=== PATIENT | male | born 1960 | race Caucasian/White ===

== ENCOUNTER → 2017-06-20 09:57 | Outpatient (CLI) | payer OTHER, MEDICAID, SELFPAY | PROVIDERS: PCP Family Medicine; Visit Provider Internal Medicine | DX: G90.09 Other idiopathic peripheral autonomic neuropathy (principal); L97.512 Non-pressure chronic ulcer of other part of right foot with fat layer exposed | CPT/HCPCS: 11042 ==

== ENCOUNTER → 2017-07-05 08:46 | Outpatient (CLI) | payer OTHER, MEDICAID, SELFPAY | PROVIDERS: PCP Family Medicine; Visit Provider Internal Medicine | DX: G90.09 Other idiopathic peripheral autonomic neuropathy (principal); L97.512 Non-pressure chronic ulcer of other part of right foot with fat layer exposed; M86.171 Other acute osteomyelitis, right ankle and foot | CPT/HCPCS: 11042 ==

== ENCOUNTER → 2017-07-13 08:55 | Outpatient (CLI) | payer OTHER, MEDICAID, SELFPAY | PROVIDERS: PCP Family Medicine; Visit Provider Internal Medicine | DX: L97.512 Non-pressure chronic ulcer of other part of right foot with fat layer exposed (principal); M86.171 Other acute osteomyelitis, right ankle and foot | CPT/HCPCS: 11042 ==

== ENCOUNTER → 2017-07-20 09:08 | Outpatient (CLI) | payer OTHER, SELFPAY | PROVIDERS: PCP Family Medicine; Visit Provider Internal Medicine | DX: G90.09 Other idiopathic peripheral autonomic neuropathy (principal); L97.512 Non-pressure chronic ulcer of other part of right foot with fat layer exposed; M86.171 Other acute osteomyelitis, right ankle and foot | CPT/HCPCS: 11042 ==

== ENCOUNTER → 2017-07-27 09:03 | Outpatient (CLI) | payer OTHER, SELFPAY ==
--- NOTE | 2017-07-27 | OV.WND_ITS ---
Progress Note Details Patient Name: Gustavo Worley Patient Number: [id number] PatientPatientDate: 07/27/2017 Clinician: Huong Harp Clinician Cosigner: Meenu Ng Physician / Compressed Yeast Supervisor: Reji Gustavo SUBJECTIVE Chief Complaint This information was obtained from the patient Neuropathic ulcer to right 3rd toe. Allergies [facility] This information was obtained from the patient 07/27/17. Seen by Dr. Mendoza. The patient continues on doxycycline for osteomyelitis of the right 3rd toe without reporting adverse side effects and staff feel the associated right 3rd toe neuropathic ulcer continues to improve over the past week. Of note, the patient injured his back and has been off of work for a few days which has contributed to offloading the ulcer. 07/20/17. Seen by Dr. Mendoza. The patient continues on doxycycline for osteomyelitis of the right 3rd toe without reporting adverse side effects and staff feel the associated right 3rd toe neuropathic ulcer has improved considerably over the past week. 07/13/17. Seen by Dr. Mendoza. The patient continues on doxycycline for osteomyelitis of the right 3rd toe without reporting adverse side effects. He also states he's been quite active working and feels he's not been offloading the toe as much as he should. 07/05/17. Seen Dr. Mendoza. The patient continues on doxycycline for osteomyelitis of the right 3rd toe that was seen on his MRI 2 weeks ago. He does not report significant drainage or pain at the site and he has taken the last week off of work and improved his offloading of the toe. 06/27/17. Seen by Dr. Mendoza. The patient's now on doxycycline for osteomyelitis of the right 3rd toe that was seen on his MRI last week. He does not report significant drainage or pain at the site and he continues to work a regular schedule as a longer which has made it very difficult to offload the ulcer adequately. 06/20/17. Seen by Dr. Mendoza. 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 06/12/17. Seen by Dr. Mendoza. 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 His MRI to evaluate for underlying osteomyelitis has not yet been approved any continues on oral antibiotics to treat the MSSA positive wound culture noting we were able to probe to bone at his last visit. 06/06/17. Seen by Dr. Mendoza. The patient reports recurrence of pain associated with the chronic right third toe neuropathic ulcer over the past week. 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 He notes a new ulcer beneath the left first toe that is similar to the one beneath the right first toe noted on last exam. 05/31/17. Seen by Dr. Mendoza. Staff report a persistence of the recently documented neuropathic ulcer under the base of the right first toe that originally appeared as a cracked callus. 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 05/24/17. Seen by Dr. Mendoza. The patient does not report seeing strange associated with chronic right third toe neuropathic ulcer since his last visit however he reports a new ulcer over the dorsum of the right first toe. He has returned to working as a punch press feeder and states he feels the new ulcers related to work on very steep hill sides and the fact that a makeshift toe lift dressing offloading the third toe and attached to the first toe may have been rubbing and causing the new ulcer. 05/15/17. Seen by Dr. Mendoza. The patient has been off antibiotics since last Monday and is not report significant drainage, swelling, or pain associated with the chronic right third toe neuropathic ulcer since his last visit. He is offloading as recommended using lambswool to lift the toe noting the significant plantarflexion deformity and has purchased a larger shoe to help prevent callus formation. 05/02/17. Seen by Dr. Mendoza. The patient does not report increased drainage or pain associated with the chronic right third to neuropathic ulcers since his last visit. He will complete his course of doxycycline today and does not report other side effects. He is attempting to offload the toe by using a rolled foam dressing every notes that his shoes also may be too small and preventing optimal offloading of the ulcer. He did have an x-ray that did not confirm osteomyelitis. 05/03/17. Seen by Dr. Mendoza. 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 He was not able to find a toe lift to purchase as recommended to help offload the plantar flexed distal toe but has remained off work and minimized walking as recommended. 04/26/17. Seen by Dr. Mendoza. 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 His CT evaluating for osteomyelitis was not approved by insurance due to an xray not being performed prior. In general he feels his toe is improving although swelling and erythema persist. 04/19/17. Seen by Dr. Mendoza. 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 He does not report adverse side effects, fevers, or feeling unwell in general. 04/14/17. Seen by Ryan Dacosta PA-C. This patient is new to our clinic and was sent urgently from Dr. Mcgee on [facility] for evaluation of his right 3rd toe. The ulcer began spontaneously 1 week ago and in the past few days has become red and warm. His PCP took a swab culture and placed him empirically on Keflex. The patient is insensate at the ulcer site but has not been diagnosed with diabetes, though it has been noted that his A1c and random sugars have been slightly elevated at recent PCP appointments. 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 He also has an ulcer under his right great toe which he states has been present and stable for several weeks. Past Medical History This information was obtained from the patient Patient has a medical history of: Hyperlipidemia Gout Hypertension Osteoarthritis Complaints and Symptoms This information was obtained from the patient Patient complains of: General Notes: I have reviewed and concur with the Review of Systems and Past Family Social History documents completed by the clinician, I have reviewed and concur with the Wound Assessment document completed by the clinician Integumentary (Hair/Skin/Nails): Open Sore Musculoskeletal: Deformities Neurological: Loss of Protective Sensation Prior Wound History: Drainage, Erythema, Malodor Patient denies complaints or symptoms related to: Cardiovascular (Central): Dyspnea on Exertion, Irregular heart beat Constitutional Symptoms (General Health): Chills, Fever, Loss of Appetite Gastrointestinal (GI): Nausea / Vomiting, Stomach/abdominal pain Hematologic/Lymphatic: Bleeding / Clotting Disorders, Bleeding Tendency Musculoskeletal: Assistive Devices Psychiatric: Memory Loss Respiratory: Oxygen Use OBJECTIVE Constitutional Vital signs reviewed and noted. Well developed. Alert. Clean appearing.. Height/ Length: 74 in (187.96 cm), Weight: 292.1 lbs (132.77 kgs), BMI: 37.5, Temperature: 97.4 ?F ( 36.33 ?C), Pulse: 74 bpm, Respiratory Rate: 18 breaths/min, Blood Pressure: 135/77 mmHg, Pulse Oximetry: 98 %. Ears, Nose, Mouth, and Throat: No clinically significant hearing loss on informal examination. Respiratory: No respiratory distress. Even respirations and without use of accessory muscles.. Cardiovascular: Affected extremity exhibits no peripheral edema or cyanosis, is warm, and is well perfused. Capillary refill is less than 2 seconds. Integumentary (Hair, Skin) No periwound erythema, warmth, or significant drainage. No periwound rashes appreciated or noted otherwise.. Refer to appropriate clinician wound documentation for this visit; right 3rd toe ulcer extends to subcut with base partially covered with pink granulation, remainder fibrin and slough. Moderate amount of callus in the periulcer area. Wound #2 Right Third Toe is an acute Partial Thickness Neuropathic Ulcer and has received a status of Not Healed. Subsequent wound encounter measurements are 0.2cm length x 0.2cm width x 0.1cm depth, with an area of 0.04 sq cm and a volume of 0.004 cubic cm. No tunneling has been noted. No sinus tract has been noted. No undermining has been noted. There is a moderate amount of sero-sanguineous drainage noted which has no odor. The patient reports a wound pain of level 0/10. The wound margin is unattached. Wound bed has Yes epithelialization, No eschar, No slough, Yes bright red, firm granulation. The periwound skin moisture is normal. The periwound skin exhibited: Callus. The periwound skin did not exhibit: Brawny Induration, Edema, Excoriation, Induration, Crepitus, Fluctuance, Friable, Rash, Atrophie Catharine, Cyanosis, Ecchymosis, Erythema, Hemosiderosis, Pallor, Rubor. The temperature of the periwound skin is WNL. Periwound skin does not exhibit signs or symptoms of infection. Local Pulse is Strong. Neurological: Cranial nerves grossly intact with symmetric function normal by informal observation.. ASSESSMENT Active Problems ICD-10 (Encounter Diagnosis) L97.512 - Non-pressure chronic ulcer of other part of right foot with fat layer exposed (Encounter Diagnosis) M86.171 - Other acute osteomyelitis, right ankle and foot PROCEDURES Wound #2 Wound #2 (Neuropathic Ulcer) is located on the right third toe. A skin/ subcutaneous tissue level surgical debridement with a total area debrided of 0.04 sq cm was performed by Gustavo Mendoza MD. Subcutaneous was removed along with devitalized tissue: callus and slough. The following instrument(s) were used: curette. Pain control was achieved using 4% Lido. A time out was conducted prior to the start of the procedure. A minimal amount of bleeding was controlled with pressure. The procedure was tolerated well with a pain level of 0 throughout and a pain level of 0 following the procedure. Post Debridement Measurements: 0.2cm length x 0.2cm width x 0.2cm depth; with an area of 0.04 sq cm and a volume of 0.008 cubic cm; PLAN Wound Orders: Wound #2 Right Third Toe Dressings Pack wound: - Gentamicin to wound bed. Primary dressing: - Foam Cover and secure with: - Hypafix Change Dressing: - Every other day. Off-Loading Keep weight off: - Right 3 toe Follow-Up Appointments Return Appointment: - - One week. Scribing Attestation I attest, as the nurse, that I scribed these orders for the physician. - Finish antibiotic then start next dose. You will have 6 week of antibiotic total. I've reviewed the clinician's documentation and agree with the evaluation and plan as written. In addition, the patient's ulcer demonstrates evidence of non-viable devitalized tissue which will continue to benefit from sharp debridement to help promote granulation and expedite healing. Also, the patient will complete his current course of doxycycline which will take him through 6 weeks of continuous therapy. Electronic Signature(s) Signed By: Date: Gustavo Mendoza MD 07/28/2017 08:42:30 Entered By: Gustavo Mendoza on 07/27/2017 11:42:32
== END ==
PROVIDERS: PCP Family Medicine; Visit Provider Internal Medicine
DX: G90.09 Other idiopathic peripheral autonomic neuropathy (principal); L97.512 Non-pressure chronic ulcer of other part of right foot with fat layer exposed; M86.171 Other acute osteomyelitis, right ankle and foot
CPT/HCPCS: 11042

== ENCOUNTER → 2017-08-03 10:25 | Outpatient (CLI) | payer OTHER, SELFPAY ==
--- NOTE | 2017-08-03 | OV.WND_ITS ---
Progress Note Details Patient Name: Gustavo Worley Patient Number: [id number] PatientPatientDate: 08/03/2017 Clinician: Huong Harp Clinician Cosigner: Lian Linn Physician / Ceramic Painter: Titus Dacosta SUBJECTIVE Chief Complaint This information was obtained from the patient Neuropathic ulcer to right 3rd toe. Allergies NKDA HPI This information was obtained from the patient 08/03/17. Seen by Ryan Dacosta PA-C. The patient reports stable drainage from his right 3rd toe ulcer. He continues on doxycycline to treat the osteomyelitis underlying the ulcer. The patient also reports a new ulcer on his left foot which began spontaneously, and has been continually present for the past 4 days. The new ulcer has had clear drainage and no associated erythema. 07/27/17. Seen by Dr. Mendoza. The patient continues on doxycycline for osteomyelitis of the right 3rd toe without reporting adverse side effects and staff feel the associated right 3rd toe neuropathic ulcer continues to improve over the past week. Of note, the patient injured his back and has been off of work for a few days which has contributed to offloading the ulcer. 07/20/17. Seen by Dr. Mendoza. The patient continues on doxycycline for osteomyelitis of the right 3rd toe without reporting adverse side effects and staff feel the associated right 3rd toe neuropathic ulcer has improved considerably over the past week. 07/13/17. Seen by Dr. Mendoza. The patient continues on doxycycline for osteomyelitis of the right 3rd toe without reporting adverse side effects. He also states he's been quite active working and feels he's not been offloading the toe as much as he should. 07/05/17. Seen Dr. Mendoza. The patient continues on doxycycline for osteomyelitis of the right 3rd toe that was seen on his MRI 2 weeks ago. He does not report significant drainage or pain at the site and he has taken the last week off of work and improved his offloading of the toe. 06/27/17. Seen by Dr. Mendoza. The patient's now on doxycycline for osteomyelitis of the right 3rd toe that was seen on his MRI last week. He does not report significant drainage or pain at the site and he continues to work a regular schedule as a longer which has made it very difficult to offload the ulcer adequately. 06/20/17. Seen by Dr. Mendoza. 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 06/12/17. Seen by Dr. Mendoza. 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 His MRI to evaluate for underlying osteomyelitis has not yet been approved any continues on oral antibiotics to treat the MSSA positive wound culture noting we were able to probe to bone at his last visit. 06/06/17. Seen by Dr. Mendoza. The patient reports recurrence of pain associated with the chronic right third toe neuropathic ulcer over the past week. 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 He notes a new ulcer beneath the left first toe that is similar to the one beneath the right first toe noted on last exam. 05/31/17. Seen by Dr. Mendoza. Staff report a persistence of the recently documented neuropathic ulcer under the base of the right first toe that originally appeared as a cracked callus. 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 05/24/17. Seen by Dr. Mendoza. The patient does not report seeing strange associated with chronic right third toe neuropathic ulcer since his last visit however he reports a new ulcer over the dorsum of the right first toe. He has returned to working as a business management manager and states he feels the new ulcers related to work on very steep hill sides and the fact that a makeshift toe lift dressing offloading the third toe and attached to the first toe may have been rubbing and causing the new ulcer. 05/15/17. Seen by Dr. Mendoza. The patient has been off antibiotics since last Monday and is not report significant drainage, swelling, or pain associated with the chronic right third toe neuropathic ulcer since his last visit. He is offloading as recommended using lambswool to lift the toe noting the significant plantarflexion deformity and has purchased a larger shoe to help prevent callus formation. 05/02/17. Seen by Dr. Mendoza. The patient does not report increased drainage or pain associated with the chronic right third to neuropathic ulcers since his last visit. He will complete his course of doxycycline today and does not report other side effects. He is attempting to offload the toe by using a rolled foam dressing every notes that his shoes also may be too small and preventing optimal offloading of the ulcer. He did have an x-ray that did not confirm osteomyelitis. 05/03/17. Seen by Dr. Mendoza. 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 He was not able to find a toe lift to purchase as recommended to help offload the plantar flexed distal toe but has remained off work and minimized walking as recommended. 04/26/17. Seen by Dr. Mendoza. 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 His CT evaluating for osteomyelitis was not approved by insurance due to an xray not being performed prior. In general he feels his toe is improving although swelling and erythema persist. 04/19/17. Seen by Dr. Mendoza. 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 He does not report adverse side effects, fevers, or feeling unwell in general. 04/14/17. Seen by Ryan Dacosta PA-C. This patient is new to our clinic and was sent urgently from Dr. Mcgee on [facility] for evaluation of his right 3rd toe. The ulcer began spontaneously 1 week ago and in the past few days has become red and warm. His PCP took a swab culture and placed him empirically on Keflex. The patient is insensate at the ulcer site but has not been diagnosed with diabetes, though it has been noted that his A1c and random sugars have been slightly elevated at recent PCP appointments. 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 He also has an ulcer under his right great toe which he states has been present and stable for several weeks. 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, Tobacco Use - never Past Medical History This information was obtained from the patient Patient has a medical history of: Hyperlipidemia Gout Hypertension Osteoarthritis Complaints and Symptoms This information was obtained from the patient Patient complains of: General Notes: I have reviewed and concur with the Review of Systems and Past Family Social History documents completed by the clinician, I have reviewed and concur with the Wound Assessment document completed by the clinician Integumentary (Hair/Skin/Nails): Open Sore Musculoskeletal: Deformities Neurological: Loss of Protective Sensation Prior Wound History: Drainage, Erythema, Malodor Patient denies complaints or symptoms related to: Cardiovascular (Central): Dyspnea on Exertion, Irregular heart beat Constitutional Symptoms (General Health): Chills, Fever, Loss of Appetite Gastrointestinal (GI): Nausea / Vomiting, Stomach/abdominal pain Hematologic/Lymphatic: Bleeding / Clotting Disorders, Bleeding Tendency Musculoskeletal: Assistive Devices Psychiatric: Memory Loss Respiratory: Oxygen Use OBJECTIVE Constitutional Vital signs reviewed and noted. Well developed, lucid, and in no acute distress. . Height/Length: 74 in (187.96 cm), Weight: 289.4 lbs (131.55 kgs), BMI: 37.2, Temperature: 98.5 ?F (36.94 ?C), Pulse: 75 bpm, Respiratory Rate: 18 breaths/min, Blood Pressure: 127/78 mmHg, Pulse Oximetry: 98 %. Eyes: Conjunctiva clear and without icterus. Pupils are equal and round; EOM's intact. Ears, Nose, Mouth, and Throat: Grossly intact. Respiratory: No respiratory distress. Even respirations and without use of accessory muscles.. Integumentary (Hair, Skin) Refer to appropriate clinician wound documentation for this visit; ulcer extends to subcutaneous fat layer. . Wound #2 Right Third Toe is an acute Full Thickness Neuropathic Ulcer and has received a status of Not Healed. Subsequent wound encounter measurements are 0cm length x 0cm width with no measurable depth, with an area of 0 sq cm . No tunneling has been noted. No sinus tract has been noted. No undermining has been noted. There was no drainage noted. The patient reports a wound pain of level 0/10. The wound margin is unattached. Wound bed has Yes epithelialization, No eschar, No slough, No granulation. The periwound skin moisture is normal. The periwound skin exhibited: Callus. The periwound skin did not exhibit: Brawny Induration, Edema, Excoriation, Induration, Crepitus, Fluctuance, Friable, Rash, Atrophie Meghann, Cyanosis, Ecchymosis, Erythema, Hemosiderosis, Pallor, Rubor. The temperature of the periwound skin is WNL. Periwound skin does not exhibit signs or symptoms of infection. Local Pulse is Strong. Wound #6 Left Third Toe is an acute Partial Thickness Neuropathic Ulcer and has received a status of Not Healed. Initial wound encounter measurements are 0.3cm length x 0.1cm width x 0.1cm depth, with an area of 0.03 sq cm and a volume of 0.003 cubic cm. No tunneling has been noted. No sinus tract has been noted. No undermining has been noted. There was no drainage noted. The patient reports no wound pain due to the wound being insensate. The wound margin is attached. Wound bed has No epithelialization, No eschar, Yes slough, No granulation. The periwound skin moisture is normal. The periwound skin color is normal. The periwound skin exhibited: Callus. The periwound skin did not exhibit: Brawny Induration, Edema, Excoriation, Crepitus, Fluctuance, Friable, Rash. The temperature of the periwound skin is WNL. Periwound skin does not exhibit signs or symptoms of infection. Local Pulse is Palpable. Psychiatric: Judgement and insight: Normal affect with normal thought pattern. Alert and oriented 3/3. Memory grossly intact.. Normal affect. Mood appropriate.. ASSESSMENT Active Problems ICD-10 (Encounter Diagnosis) L97.512 - Non-pressure chronic ulcer of other part of right foot with fat layer exposed (Encounter Diagnosis) M86.171 - Other acute osteomyelitis, right ankle and foot (Encounter Diagnosis) L97.521 - Non-pressure chronic ulcer of other part of left foot limited to breakdown of skin PROCEDURES Wound #2 Wound #2 (Neuropathic Ulcer) is located on the right third toe. A selective debridement with a total area debrided of 0.01 sq cm was performed by Titus Dacosta PA. to remove devitalized tissue: exudate and slough. The following instrument(s) were used: curette. No anesthetic was required due to loss of sensation. A time out was conducted prior to the start of the procedure. A minimal amount of bleeding was controlled with pressure. The procedure was tolerated well with a loss of sensation throughout and a loss of sensation following the procedure. Post Debridement Measurements: 0.1cm length x 0.1cm width x 0.2cm depth; with an area of 0.01 sq cm and a volume of 0.002 cubic cm; Wound #6 Wound #6 (Neuropathic Ulcer) is located on the left third toe. A skin/ subcutaneous tissue level surgical debridement with a total area debrided of 0.3 sq cm was performed by Titus Dacosta PA. Subcutaneous was removed along with devitalized tissue: callus, exudate, and slough. The following instrument(s) were used: curette, forceps, and scissors. No anesthetic was required due to loss of sensation. A time out was conducted prior to the start of the procedure. A minimal amount of bleeding was controlled with pressure. The procedure was tolerated well with a loss of sensation throughout and a loss of sensation following the procedure. Post Debridement Measurements: 0.5cm length x 0.6cm width x 0.1cm depth; with an area of 0.3 sq cm and a volume of 0.03 cubic cm; PLAN Wound Orders: Wound #2 Right Third Toe Dressings Pack wound: - Gentamicin to wound bed. Primary dressing: - Foam Cover and secure with: - Hypafix Change Dressing: - Every other day. Off-Loading Keep weight off: - Right 3 toe Follow-Up Appointments Return Appointment: - - One week. Scribing Attestation I attest, as the nurse, that I scribed these orders for the physician. - Finish antibiotic then start next dose. You will have 6 week of antibiotic total. Please continue to use toe lifts. Wound #6 Left Third Toe Dressings Pack wound: - Gentamicin to wound bed. Primary dressing: - Foam Cover and secure with: - Hypafix Change Dressing: - Every other day. I've reviewed the clinician's documentation and agree with the evaluation and plan as written. In addition the patient's ulcers demonstrate evidence of non-viable devitalized tissue which benefits from sharp debridement. Separate from the need for debridement today to speed healing, the patient's infection was assessed and appears to still be active. The patient was enouraged to continue complying with the ordered antimicrobial regemin for ongoing treatment for this issue. The patient's new ulcer is medically complex requiring continued and regular specialty wound care clinic visits. To that end we will continue with routine dressing changes and in clinic medical assessments including surveillance for bacterial infection as well as routine debridements of non-viable tissue when needed. Electronic Signature(s) Signed By: Date: Ryan Dacosta 08/07/2017 12:48:23 Entered By: Ryan Dacosta on 08/07/2017 08:40:27
== END ==
PROVIDERS: PCP Family Medicine; Visit Provider Physician Assistant
DX: G90.09 Other idiopathic peripheral autonomic neuropathy (principal); L97.522 Non-pressure chronic ulcer of other part of left foot with fat layer exposed; L97.512 Non-pressure chronic ulcer of other part of right foot with fat layer exposed; M86.171 Other acute osteomyelitis, right ankle and foot
CPT/HCPCS: 11042; 97597

== ENCOUNTER → 2017-08-10 09:43 | Outpatient (CLI) | payer OTHER, SELFPAY ==
--- NOTE | 2017-08-10 | OV.WND_ITS ---
Progress Note Details Patient Name: Gustavo Worley Patient Number: [id number] PatientPatientDate: 08/10/2017 Clinician: Rosie Abernathy Clinician Cosigner: Huong Harp Physician / Maintenance Painter Apprentice: Gustavo Mendoza SUBJECTIVE Chief Complaint This information was obtained from the patient Neuropathic ulcer to right 3rd toe. Allergies [facility] This information was obtained from the patient 08/10/17. Seen by Dr. Mendoza. 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 He's also completed his course of doxycycline for a total of 6 weeks of antibiotics which was prescribed for acute osteomyelitis of the distal right 3rd toe. He does not report pain in this toe as he had previously nor adverse side effects of the antibiotics. He typically keeps his feet covered when in the shower but notes last night he did not as he felt he needed to wash his feet. 08/03/17. Seen by Ryan Dacosta PA-C. The patient reports stable drainage from his right 3rd toe ulcer. He continues on doxycycline to treat the osteomyelitis underlying the ulcer. The patient also reports a new ulcer on his left foot which began spontaneously, and has been continually present for the past 4 days. The new ulcer has had clear drainage and no associated erythema. 07/27/17. Seen by Dr. Mendoza. The patient continues on doxycycline for osteomyelitis of the right 3rd toe without reporting adverse side effects and staff feel the associated right 3rd toe neuropathic ulcer continues to improve over the past week. Of note, the patient injured his back and has been off of work for a few days which has contributed to offloading the ulcer. 07/20/17. Seen by Dr. Mendoza. The patient continues on doxycycline for osteomyelitis of the right 3rd toe without reporting adverse side effects and staff feel the associated right 3rd toe neuropathic ulcer has improved considerably over the past week. 07/13/17. Seen by Dr. Mendoza. The patient continues on doxycycline for osteomyelitis of the right 3rd toe without reporting adverse side effects. He also states he's been quite active working and feels he's not been offloading the toe as much as he should. 07/05/17. Seen Dr. Mendoza. The patient continues on doxycycline for osteomyelitis of the right 3rd toe that was seen on his MRI 2 weeks ago. He does not report significant drainage or pain at the site and he has taken the last week off of work and improved his offloading of the toe. 06/27/17. Seen by Dr. Mendoza. The patient's now on doxycycline for osteomyelitis of the right 3rd toe that was seen on his MRI last week. He does not report significant drainage or pain at the site and he continues to work a regular schedule as a longer which has made it very difficult to offload the ulcer adequately. 06/20/17. Seen by Dr. Mendoza. 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 06/12/17. Seen by Dr. Mendoza. 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 His MRI to evaluate for underlying osteomyelitis has not yet been approved any continues on oral antibiotics to treat the MSSA positive wound culture noting we were able to probe to bone at his last visit. 06/06/17. Seen by Dr. Mendoza. The patient reports recurrence of pain associated with the chronic right third toe neuropathic ulcer over the past week. 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 He also continues his work as a mastercam programmer. He notes a new ulcer beneath the left first toe that is similar to the one beneath the right first toe noted on last exam. 05/31/17. Seen by Dr. Mendoza. Staff report a persistence of the recently documented neuropathic ulcer under the base of the right first toe that originally appeared as a cracked callus. 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 05/24/17. Seen by Dr. Mendoza. The patient does not report seeing strange associated with chronic right third toe neuropathic ulcer since his last visit however he reports a new ulcer over the dorsum of the right first toe. 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 05/15/17. Seen by Dr. Mendoza. The patient has been off antibiotics since last Monday and is not report significant drainage, swelling, or pain associated with the chronic right third toe neuropathic ulcer since his last visit. He is offloading as recommended using lambswool to lift the toe noting the significant plantarflexion deformity and has purchased a larger shoe to help prevent callus formation. 05/02/17. Seen by Dr. Mendoza. The patient does not report increased drainage or pain associated with the chronic right third to neuropathic ulcers since his last visit. He will complete his course of doxycycline today and does not report other side effects. He is attempting to offload the toe by using a rolled foam dressing every notes that his shoes also may be too small and preventing optimal offloading of the ulcer. He did have an x-ray that did not confirm osteomyelitis. 05/03/17. Seen by Dr. Mendoza. 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 He was not able to find a toe lift to purchase as recommended to help offload the plantar flexed distal toe but has remained off work and minimized walking as recommended. 04/26/17. Seen by Dr. Mendoza. 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 His CT evaluating for osteomyelitis was not approved by insurance due to an xray not being performed prior. In general he feels his toe is improving although swelling and erythema persist. 04/19/17. Seen by Dr. Mendoza. 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 He does not report adverse side effects, fevers, or feeling unwell in general. 04/14/17. Seen by Ryan Dacosta PA-C. This patient is new to our clinic and was sent urgently from Dr. Mcgee on [facility] for evaluation of his right 3rd toe. The ulcer began spontaneously 1 week ago and in the past few days has become red and warm. His PCP took a swab culture and placed him empirically on Keflex. The patient is insensate at the ulcer site but has not been diagnosed with diabetes, though it has been noted that his A1c and random sugars have been slightly elevated at recent PCP appointments. 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 He also has an ulcer under his right great toe which he states has been present and stable for several weeks. 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, Tobacco Use - never Past Medical History This information was obtained from the patient Patient has a medical history of: Hyperlipidemia Gout Hypertension Osteoarthritis Surgical History This information was obtained from the patient Patient has a surgical history of: COLONOSCOPY COLLJ SPEC SPX NERNIA REPAIR TYMPANOSTOMY GENERAL ANESTHESIA Complaints and Symptoms This information was obtained from the patient Patient complains of: General Notes: I have reviewed and concur with the Review of Systems and Past Family Social History documents completed by the clinician, I have reviewed and concur with the Wound Assessment document completed by the clinician Integumentary (Hair/Skin/Nails): Open Sore Musculoskeletal: Deformities Neurological: Loss of Protective Sensation Prior Wound History: Drainage, Erythema, Malodor Patient denies complaints or symptoms related to: Cardiovascular (Central): Dyspnea on Exertion, Irregular heart beat Constitutional Symptoms (General Health): Chills, Fever, Loss of Appetite Gastrointestinal (GI): Nausea / Vomiting, Stomach/abdominal pain Hematologic/Lymphatic: Bleeding / Clotting Disorders, Bleeding Tendency Musculoskeletal: Assistive Devices Psychiatric: Memory Loss Respiratory: Oxygen Use OBJECTIVE Constitutional BP elevated; Afebrile; Alert and in no distress. Well developed. Alert. Clean appearing.. Height/Length: 74 in (187.96 cm), Weight: 289.4 lbs (131.55 kgs), BMI: 37.2, Temperature: 97.7 ?F (36.5 ?C), Pulse: 150/91 bpm, Respiratory Rate: 18 breaths/min, Blood Pressure: 150/91 mmHg, Capillary Blood Glucose: 106 mg/dl, Pulse Oximetry: 98 %. Vital Signs Notes: Glucose in Clinic Ears, Nose, Mouth, and Throat: No clinically significant hearing loss on informal examination. Respiratory: No respiratory distress. Even respirations and without use of accessory muscles.. Cardiovascular: Affected extremity exhibits no peripheral edema or cyanosis, is warm, and is well perfused. Capillary refill is less than 2 seconds. Gastrointestinal (GI): Obese. Nondistended.. Musculoskeletal: Significant plantar flexion of right 3rd toe. Significant plantar flexion of left 3rd toe. Integumentary (Hair, Skin) No periwound erythema, warmth, or significant drainage. No periwound rashes appreciated or noted otherwise.. Refer to appropriate clinician wound documentation for this visit; right and left foot ulcers extend to subcut with bases partially covered with pink granulation, remainder fibrin and slough; bone not appreciated at either site. Significant amount of callus in the periulcer areas. Wound #2 Right Third Toe is an acute Partial Thickness Neuropathic Ulcer and has received a status of Not Healed. Subsequent wound encounter measurements are 0.2cm length x 0.2cm width x 0.1cm depth, with an area of 0.04 sq cm and a volume of 0.004 cubic cm. No tunneling has been noted. No sinus tract has been noted. No undermining has been noted. There was no drainage noted. The patient reports a wound pain of level 0/10. The wound margin is unattached. Wound bed has No epithelialization, No eschar, No slough, No granulation. The periwound skin moisture is normal. The periwound skin exhibited: Callus. The periwound skin did not exhibit: Brawny Induration, Edema, Excoriation, Induration, Crepitus, Fluctuance, Friable, Rash, Atrophie [place], Cyanosis, Ecchymosis, Erythema, Hemosiderosis, Pallor, Rubor. The temperature of the periwound skin is WNL. Periwound skin does not exhibit signs or symptoms of infection. Local Pulse is Strong. Wound #6 Left Third Toe is an acute Partial Thickness Neuropathic Ulcer and has received a status of Not Healed. Initial wound encounter measurements are 0.3cm length x 0.4cm width x 0.1cm depth, with an area of 0.12 sq cm and a volume of 0.012 cubic cm. No tunneling has been noted. Undermining has been noted at 6:00 and ends at 9:00 with a maximum distance of 0.3cm. There was no drainage noted. The patient reports no wound pain due to the wound being insensate. The wound margin is attached. Wound bed has No epithelialization, No eschar, No slough, No granulation. The periwound skin moisture is normal. The periwound skin color is normal. The periwound skin exhibited: Callus. The periwound skin did not exhibit: Brawny Induration, Edema, Excoriation, Crepitus, Fluctuance, Friable, Rash. The temperature of the periwound skin is WNL. Periwound skin does not exhibit signs or symptoms of infection. Local Pulse is Palpable. Neurological: Cranial nerves grossly intact with symmetric function normal by informal observation.. ASSESSMENT Active Problems ICD-10 (Encounter Diagnosis) L97.512 - Non-pressure chronic ulcer of other part of right foot with fat layer exposed (Encounter Diagnosis) M86.171 - Other acute osteomyelitis, right ankle and foot (Encounter Diagnosis) L97.522 - Non-pressure chronic ulcer of other part of left foot with fat layer exposed (Encounter Diagnosis) M20.5X2 - Other deformities of toe(s) (acquired), left foot (Encounter Diagnosis) M20.5X1 - Other deformities of toe(s) (acquired), right foot (Encounter Diagnosis) Z91.19 - Patient's noncompliance with other medical treatment and regimen PROCEDURES Wound #2 Wound #2 (Neuropathic Ulcer) is located on the right third toe. A skin/ subcutaneous tissue level surgical debridement with a total area debrided of 0.04 sq cm was performed by Gustavo Mendoza MD. Subcutaneous was removed along with devitalized tissue: callus, exudate, and slough. The following instrument(s) were used: curette. Pain control was achieved using N/A. A time out was conducted prior to the start of the procedure. A minimal amount of bleeding was controlled with pressure. The procedure was tolerated well with a loss of sensation throughout and a loss of sensation following the procedure. Post Debridement Measurements: 0.2cm length x 0.2cm width x 0.3cm depth; with an area of 0.04 sq cm and a volume of 0.012 cubic cm; General Notes: Culture Wound #6 Wound #6 (Neuropathic Ulcer) is located on the left third toe. A skin/ subcutaneous tissue level surgical debridement with a total area debrided of 1 sq cm was performed by Gustavo Mendoza MD. Subcutaneous was removed along with devitalized tissue: callus and slough. The following instrument(s) were used: curette. Pain control was achieved using N/A. A time out was conducted prior to the start of the procedure. A minimal amount of bleeding was controlled with pressure. The procedure was tolerated well with a loss of sensation throughout and a loss of sensation following the procedure. Post Debridement Measurements: 1cm length x 1cm width x 0.2cm depth; with an area of 1 sq cm and a volume of 0.2 cubic cm; General Notes: Left third toe and Right third toe Cultures. Additional Information Muscle fascia or bone removed and sent to pathology?: No Muscle fascia or bone removed and sent to pathology?: No PLAN Wound Orders: Wound #2 Right Third Toe Dressings Primary dressing: - Iodosorb to wound beds. Cover and secure with: - Foam and secure with hypafix tape. Toe crest to toes to off load. Both third toes of right and left feet. Change Dressing: - Every day Off-Loading Keep weight off: - Toe Crests. Follow-Up Appointments Return Appointment: - - One week. Wound #6 Left Third Toe Dressings Primary dressing: - Iodosorb to wound beds. Cover and secure with: - Foam and secure with hypafix tape. Toe crest to toes to off load. Both third toes of right and left feet. Change Dressing: - Every day Off-Loading Keep weight off: - Toe Crests. Follow-Up Appointments Return Appointment: - - One week. Laboratory: Bacteria identified in Wound by Culture - Cultures to both wounds. Right and Left third toes. General Notes: Culture to both wounds. I've reviewed the clinician's documentation and agree with the evaluation and plan as written. In addition the patient's ulcers demonstrate evidence of non-viable devitalized tissue and they will continue to benefit from sharp debridement to help promote granulation and expedite healing. Also, I've reinforced the need to not allow the toe ulcers to be exposed to shower water and to maintain adequate hygiene to help prevent recurrent infections. The right 3rd toe ulcer is deeper today so I've repeated a wound culture and will restart oral antibiotics pending the culture results. We've also adjusted dressings to help facilitate better offloading of the ulcers noting this is quite difficulty while he continues to work full-time. Electronic Signature(s) Signed By: Date: Gustavo Mendoza MD 08/11/2017 08:43:48 Entered By: Gustavo Mendoza on 08/10/2017 12:17:15
== END ==
PROVIDERS: PCP Family Medicine; Visit Provider Internal Medicine
DX: G90.09 Other idiopathic peripheral autonomic neuropathy (principal); L97.512 Non-pressure chronic ulcer of other part of right foot with fat layer exposed; L97.522 Non-pressure chronic ulcer of other part of left foot with fat layer exposed; M86.171 Other acute osteomyelitis, right ankle and foot; M20.5X2 Other deformities of toe(s) (acquired), left foot; M20.5X1 Other deformities of toe(s) (acquired), right foot; Z91.19 Patient's noncompliance with other medical treatment and regimen
CPT/HCPCS: 11042; 87070; 87075; 87077; 87186; 87205

== ENCOUNTER → 2017-08-17 14:03 | Outpatient (CLI) | payer OTHER, SELFPAY ==
--- NOTE | 2017-08-17 | OV.WND_ITS ---
Progress Note Details Patient Name: Gustavo Worley Patient Number: [id number] PatientPatientDate: 08/17/2017 Clinician: Meenu gN Clinician Cosigner: Huong Harp Physician / Hog Cooler: Gustavo Mendoza SUBJECTIVE Chief Complaint This information was obtained from the patient Neuropathic ulcer to right 3rd toe. Allergies NKDA HPI This information was obtained from the patient 08/17/17. Seen by Dr. Mendoza. The patient's wound culture from the last visit grew MSSA, a resistant coag negative Staph, and a Sphingomonas species. He's now on clindamycin and does not report significant drainage associated with the right and left 3rd toe non-pressure ulcers. 08/10/17. Seen by Dr. Mendoza. 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 He's also completed his course of doxycycline for a total of 6 weeks of antibiotics which was prescribed for acute osteomyelitis of the distal right 3rd toe. He does not report pain in this toe as he had previously nor adverse side effects of the antibiotics. He typically keeps his feet covered when in the shower but notes last night he did not as he felt he needed to wash his feet. 08/03/17. Seen by Ryan Dacosta PA-C. The patient reports stable drainage from his right 3rd toe ulcer. He continues on doxycycline to treat the osteomyelitis underlying the ulcer. The patient also reports a new ulcer on his left foot which began spontaneously, and has been continually present for the past 4 days. The new ulcer has had clear drainage and no associated erythema. 07/27/17. Seen by Dr. Mendoza. The patient continues on doxycycline for osteomyelitis of the right 3rd toe without reporting adverse side effects and staff feel the associated right 3rd toe neuropathic ulcer continues to improve over the past week. Of note, the patient injured his back and has been off of work for a few days which has contributed to offloading the ulcer. 07/20/17. Seen by Dr. Mendoza. The patient continues on doxycycline for osteomyelitis of the right 3rd toe without reporting adverse side effects and staff feel the associated right 3rd toe neuropathic ulcer has improved considerably over the past week. 07/13/17. Seen by Dr. Mendoza. The patient continues on doxycycline for osteomyelitis of the right 3rd toe without reporting adverse side effects. He also states he's been quite active working and feels he's not been offloading the toe as much as he should. 07/05/17. Seen Dr. Mendoza. The patient continues on doxycycline for osteomyelitis of the right 3rd toe that was seen on his MRI 2 weeks ago. He does not report significant drainage or pain at the site and he has taken the last week off of work and improved his offloading of the toe. 06/27/17. Seen by Dr. Mendoza. The patient's now on doxycycline for osteomyelitis of the right 3rd toe that was seen on his MRI last week. He does not report significant drainage or pain at the site and he continues to work a regular schedule as a longer which has made it very difficult to offload the ulcer adequately. 06/20/17. Seen by Dr. Mendoza. 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 06/12/17. Seen by Dr. Mendoza. 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 His MRI to evaluate for underlying osteomyelitis has not yet been approved any continues on oral antibiotics to treat the MSSA positive wound culture noting we were able to probe to bone at his last visit. 06/06/17. Seen by Dr. Mendoza. The patient reports recurrence of pain associated with the chronic right third toe neuropathic ulcer over the past week. 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 He also continues his work as a senior technical trainer. He notes a new ulcer beneath the left first toe that is similar to the one beneath the right first toe noted on last exam. 05/31/17. Seen by Dr. Mendoza. Staff report a persistence of the recently documented neuropathic ulcer under the base of the right first toe that originally appeared as a cracked callus. 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 05/24/17. Seen by Dr. Mendoza. The patient does not report seeing strange associated with chronic right third toe neuropathic ulcer since his last visit however he reports a new ulcer over the dorsum of the right first toe. He has returned to working as a senior technical trainer and states he feels the new ulcers related to work on very steep hill sides and the fact that a makeshift toe lift dressing offloading the third toe and attached to the first toe may have been rubbing and causing the new ulcer. 05/15/17. Seen by Dr. Mendoza. The patient has been off antibiotics since last Monday and is not report significant drainage, swelling, or pain associated with the chronic right third toe neuropathic ulcer since his last visit. He is offloading as recommended using lambswool to lift the toe noting the significant plantarflexion deformity and has purchased a larger shoe to help prevent callus formation. 05/02/17. Seen by Dr. Mendoza. The patient does not report increased drainage or pain associated with the chronic right third to neuropathic ulcers since his last visit. He will complete his course of doxycycline today and does not report other side effects. He is attempting to offload the toe by using a rolled foam dressing every notes that his shoes also may be too small and preventing optimal offloading of the ulcer. He did have an x-ray that did not confirm osteomyelitis. 05/03/17. Seen by Dr. Mendoza. 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 He was not able to find a toe lift to purchase as recommended to help offload the plantar flexed distal toe but has remained off work and minimized walking as recommended. 04/26/17. Seen by Dr. Mendoza. 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 His CT evaluating for osteomyelitis was not approved by insurance due to an xray not being performed prior. In general he feels his toe is improving although swelling and erythema persist. 04/19/17. Seen by Dr. Mendoza. 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 He does not report adverse side effects, fevers, or feeling unwell in general. 04/14/17. Seen by Ryan Dacosta PA-C. This patient is new to our clinic and was sent urgently from Dr. Mcgee on [facility] for evaluation of his right 3rd toe. The ulcer began spontaneously 1 week ago and in the past few days has become red and warm. His PCP took a swab culture and placed him empirically on Keflex. The patient is insensate at the ulcer site but has not been diagnosed with diabetes, though it has been noted that his A1c and random sugars have been slightly elevated at recent PCP appointments. 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 He also has an ulcer under his right great toe which he states has been present and stable for several weeks. Past Medical History This information was obtained from the patient Patient has a medical history of: Hyperlipidemia Gout Hypertension Osteoarthritis Complaints and Symptoms This information was obtained from the patient Patient complains of: General Notes: I have reviewed and concur with the Review of Systems and Past Family Social History documents completed by the clinician, I have reviewed and concur with the Wound Assessment document completed by the clinician Integumentary (Hair/Skin/Nails): Open Sore Musculoskeletal: Deformities Neurological: Loss of Protective Sensation Prior Wound History: Drainage, Erythema, Malodor Patient denies complaints or symptoms related to: Cardiovascular (Central): Dyspnea on Exertion, Irregular heart beat Constitutional Symptoms (General Health): Chills, Fever, Loss of Appetite Gastrointestinal (GI): Nausea / Vomiting, Stomach/abdominal pain Hematologic/Lymphatic: Bleeding / Clotting Disorders, Bleeding Tendency Musculoskeletal: Assistive Devices Psychiatric: Memory Loss Respiratory: Oxygen Use OBJECTIVE Constitutional BP elevated; Afebrile; Alert and in no distress. Well developed. Alert. Clean appearing.. Height/Length: 74 in (187.96 cm), Weight: 289.4 lbs (131.55 kgs), BMI: 37.2, Temperature: 97.9 ?F (36.61 ?C), Pulse: 72 bpm, Respiratory Rate: 18 breaths/min, Blood Pressure: 141/85 mmHg, Pulse Oximetry: 99 %. Ears, Nose, Mouth, and Throat: No clinically significant hearing loss on informal examination. Respiratory: No respiratory distress. Even respirations and without use of accessory muscles.. Integumentary (Hair, Skin) No periwound erythema, warmth, or significant drainage. No periwound rashes appreciated or noted otherwise.. Refer to appropriate clinician wound documentation for this visit; right and left foot ulcers extend to subcut with bases partially covered with pink granulation, remainder fibrin and slough. Moderate amount of callus in the periulcer areas. Wound #2 Right Third Toe is an acute Partial Thickness Neuropathic Ulcer and has received a status of Not Healed. Subsequent wound encounter measurements are 0.1cm length x 0.1cm width x 0.1cm depth, with an area of 0.01 sq cm and a volume of 0.001 cubic cm. No tunneling has been noted. No sinus tract has been noted. No undermining has been noted. There was no drainage noted. The patient reports a wound pain of level 0/10. The wound margin is unattached. Wound bed has No epithelialization, No eschar, Yes slough , No granulation. The periwound skin moisture is normal. The periwound skin exhibited: Callus. The periwound skin did not exhibit: Brawny Induration, Edema, Excoriation, Induration, Crepitus, Fluctuance, Friable, Rash, Atroph[place], Cyanosis, Ecchymosis, Erythema, Hemosiderosis, Pallor, Rubor. The temperature of the periwound skin is WNL. Periwound skin does not exhibit signs or symptoms of infection. Local Pulse is Strong. Wound #6 Left Third Toe is an acute Partial Thickness Neuropathic Ulcer and has received a status of Not Healed. Initial wound encounter measurements are 0.3cm length x 0.3cm width x 0.1cm depth, with an area of 0.09 sq cm and a volume of 0.009 cubic cm. No tunneling has been noted. No sinus tract has been noted. No undermining has been noted. There was no drainage noted. The patient reports no wound pain due to the wound being insensate. The wound margin is attached. Wound bed has No epithelialization, No eschar, No slough, Yes bright red, pink, firm granulation. The periwound skin moisture is normal. The periwound skin color is normal. The periwound skin exhibited: Callus. The periwound skin did not exhibit: Brawny Induration, Edema, Excoriation, Crepitus, Fluctuance, Friable, Rash. The temperature of the periwound skin is WNL. Periwound skin does not exhibit signs or symptoms of infection. Local Pulse is Palpable. ASSESSMENT Active Problems ICD-10 (Encounter Diagnosis) L97.512 - Non-pressure chronic ulcer of other part of right foot with fat layer exposed (Encounter Diagnosis) L97.522 - Non-pressure chronic ulcer of other part of left foot with fat layer exposed (Encounter Diagnosis) L08.89 - Other specified local infections of the skin and subcutaneous tissue PROCEDURES Wound #2 Wound #2 (Neuropathic Ulcer) is located on the right third toe. A skin/ subcutaneous tissue level surgical debridement with a total area debrided of 0.01 sq cm was performed by Gustavo Mendoza MD. Subcutaneous was removed along with devitalized tissue: callus and slough. The following instrument(s) were used: curette. Pain control was achieved using 4% Lido. A time out was conducted prior to the start of the procedure. A minimal amount of bleeding was controlled with n/a. The procedure was tolerated well with a pain level of 0 throughout and a pain level of 0 following the procedure. Post Debridement Measurements: 0.1cm length x 0.1cm width x 0.2cm depth; with an area of 0.01 sq cm and a volume of 0.002 cubic cm; Wound #6 Wound #6 (Neuropathic Ulcer) is located on the left third toe. A skin/ subcutaneous tissue level surgical debridement with a total area debrided of 0.09 sq cm was performed by Gustavo Mendoza MD. Subcutaneous was removed along with devitalized tissue: callus. The following instrument(s) were used: curette. Pain control was achieved using 4% Lido. A time out was conducted prior to the start of the procedure. A minimal amount of bleeding was controlled with n/a. The procedure was tolerated well with a pain level of 0 throughout and a pain level of 0 following the procedure. Post Debridement Measurements: 0.3cm length x 0.3cm width x 0.2cm depth; with an area of 0.09 sq cm and a volume of 0.018 cubic cm; Additional Information Muscle fascia or bone removed and sent to pathology?: No Muscle fascia or bone removed and sent to pathology?: No PLAN Wound Orders: Wound #2 Right Third Toe Anesthetic Topical Xylocaine to wound bed. Cleanser Cleanse Wound: - Normal Saline and gauze. May use distilled water at home. Topical Treatments Antibiotic/Antimicrobial Ointment/Cream. - Gentamicin Dressings Cover and secure with: - Foam and secure with hypafix tape. Toe crest to toes to off load. Both third toes of right and left feet. Change Dressing: - Every day Off-Loading Keep weight off: - Toe Crests. Follow-Up Appointments Return Appointment: - - One week. Wound #6 Left Third Toe Anesthetic Topical Xylocaine to wound bed. Cleanser Cleanse Wound: - Normal Saline and gauze. May use distilled water at home. Topical Treatments Antibiotic/Antimicrobial Ointment/Cream. - Gentamicin Dressings Cover and secure with: - Foam and secure with hypafix tape. Toe crest to toes to off load. Both third toes of right and left feet. Change Dressing: - Every day Off-Loading Keep weight off: - Toe Crests. Follow-Up Appointments Return Appointment: - - One week. General Notes: Please continue taking oral antibiotics I've reviewed the clinician's documentation and agree with the evaluation and plan as written. In addition the patient's ulcers demonstrate evidence of non-viable devitalized tissue and they will continue to benefit from sharp debridement to help promote granulation and expedite healing. Also, the patient will complete his course of clindamycin as prescribed and continue applying topical gentamicin to the ulcer bases. Electronic Signature(s) Signed By: Date: Gustavo Mendoza MD 08/17/2017 15:34:08 Entered By: Gustavo Mendoza on 08/17/2017 12:26:29
== END ==
PROVIDERS: PCP Family Medicine; Visit Provider Internal Medicine
DX: G90.09 Other idiopathic peripheral autonomic neuropathy (principal); L97.512 Non-pressure chronic ulcer of other part of right foot with fat layer exposed; L97.522 Non-pressure chronic ulcer of other part of left foot with fat layer exposed; L08.89 Other specified local infections of the skin and subcutaneous tissue
CPT/HCPCS: 11042

== ENCOUNTER → 2017-08-24 09:08 | Outpatient (CLI) | payer OTHER, SELFPAY ==
--- NOTE | 2017-08-24 | OV.WND_ITS ---
Progress Note Details Patient Name: Gustavo Worley Patient Number: [id number] PatientPatientDate: 08/24/2017 Clinician: Meenu Ng Clinician Cosigner: Huong Harp Physician / Tomato Paste Maker: Reji Gustavo SUBJECTIVE Chief Complaint This information was obtained from the patient Neuropathic ulcer to right 3rd toe. Allergies NKDA HPI This information was obtained from the patient 08/24/17. Seen by Dr. Mendoza. 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 Of note, he was pressure washing a boat yesterday and feels the ulcers may have gotten wet. He also completed an extended course of antibiotics recently that was treating acute osteomyelitis of the distal right 3rd toe and as of last week the overlying ulcer appeared to be nearly healed. 08/17/17. Seen by Dr. Mendoza. The patient's wound culture from the last visit grew MSSA, a resistant coag negative Staph, and a Sphingomonas species. He's now on clindamycin and does not report significant drainage associated with the right and left 3rd toe non-pressure ulcers. 08/10/17. Seen by Dr. Mendoza. 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 He's also completed his course of doxycycline for a total of 6 weeks of antibiotics which was prescribed for acute osteomyelitis of the distal right 3rd toe. He does not report pain in this toe as he had previously nor adverse side effects of the antibiotics. He typically keeps his feet covered when in the shower but notes last night he did not as he felt he needed to wash his feet. 08/03/17. Seen by Ryan Dacosta PA-C. The patient reports stable drainage from his right 3rd toe ulcer. He continues on doxycycline to treat the osteomyelitis underlying the ulcer. The patient also reports a new ulcer on his left foot which began spontaneously, and has been continually present for the past 4 days. The new ulcer has had clear drainage and no associated erythema. 07/27/17. Seen by Dr. Mendoza. The patient continues on doxycycline for osteomyelitis of the right 3rd toe without reporting adverse side effects and staff feel the associated right 3rd toe neuropathic ulcer continues to improve over the past week. Of note, the patient injured his back and has been off of work for a few days which has contributed to offloading the ulcer. 07/20/17. Seen by Dr. Mendoza. The patient continues on doxycycline for osteomyelitis of the right 3rd toe without reporting adverse side effects and staff feel the associated right 3rd toe neuropathic ulcer has improved considerably over the past week. 07/13/17. Seen by Dr. Mendoza. The patient continues on doxycycline for osteomyelitis of the right 3rd toe without reporting adverse side effects. He also states he's been quite active working and feels he's not been offloading the toe as much as he should. 07/05/17. Seen Dr. Mendoza. The patient continues on doxycycline for osteomyelitis of the right 3rd toe that was seen on his MRI 2 weeks ago. He does not report significant drainage or pain at the site and he has taken the last week off of work and improved his offloading of the toe. 06/27/17. Seen by Dr. Mendoza. The patient's now on doxycycline for osteomyelitis of the right 3rd toe that was seen on his MRI last week. He does not report significant drainage or pain at the site and he continues to work a regular schedule as a longer which has made it very difficult to offload the ulcer adequately. 06/20/17. Seen by Dr. Mendoza. 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 06/12/17. Seen by Dr. Mendoza. 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 His MRI to evaluate for underlying osteomyelitis has not yet been approved any continues on oral antibiotics to treat the MSSA positive wound culture noting we were able to probe to bone at his last visit. 06/06/17. Seen by Dr. Mendoza. The patient reports recurrence of pain associated with the chronic right third toe neuropathic ulcer over the past week. 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 He also continues his work as a mechanical maintenance. He notes a new ulcer beneath the left first toe that is similar to the one beneath the right first toe noted on last exam. 05/31/17. Seen by Dr. Mendoza. Staff report a persistence of the recently documented neuropathic ulcer under the base of the right first toe that originally appeared as a cracked callus. 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 05/24/17. Seen by Dr. Mendoza. The patient does not report seeing strange associated with chronic right third toe neuropathic ulcer since his last visit however he reports a new ulcer over the dorsum of the right first toe. 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 05/15/17. Seen by Dr. Mendoza. The patient has been off antibiotics since last Monday and is not report significant drainage, swelling, or pain associated with the chronic right third toe neuropathic ulcer since his last visit. He is offloading as recommended using lambswool to lift the toe noting the significant plantarflexion deformity and has purchased a larger shoe to help prevent callus formation. 05/02/17. Seen by Dr. Mendoza. The patient does not report increased drainage or pain associated with the chronic right third to neuropathic ulcers since his last visit. He will complete his course of doxycycline today and does not report other side effects. He is attempting to offload the toe by using a rolled foam dressing every notes that his shoes also may be too small and preventing optimal offloading of the ulcer. He did have an x-ray that did not confirm osteomyelitis. 05/03/17. Seen by Dr. Mendoza. 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 He was not able to find a toe lift to purchase as recommended to help offload the plantar flexed distal toe but has remained off work and minimized walking as recommended. 04/26/17. Seen by Dr. Mendoza. 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 His CT evaluating for osteomyelitis was not approved by insurance due to an xray not being performed prior. In general he feels his toe is improving although swelling and erythema persist. 04/19/17. Seen by Dr. Mendoza. 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 He does not report adverse side effects, fevers, or feeling unwell in general. 04/14/17. Seen by Ryan Dacosta PA-C. This patient is new to our clinic and was sent urgently from Dr. Mcgee on [facility] for evaluation of his right 3rd toe. The ulcer began spontaneously 1 week ago and in the past few days has become red and warm. His PCP took a swab culture and placed him empirically on Keflex. The patient is insensate at the ulcer site but has not been diagnosed with diabetes, though it has been noted that his A1c and random sugars have been slightly elevated at recent PCP appointments. 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 He also has an ulcer under his right great toe which he states has been present and stable for several weeks. Past Medical History This information was obtained from the patient Patient has a medical history of: Hyperlipidemia Gout Hypertension Osteoarthritis Complaints and Symptoms This information was obtained from the patient Patient complains of: General Notes: I have reviewed and concur with the Review of Systems and Past Family Social History documents completed by the clinician, I have reviewed and concur with the Wound Assessment document completed by the clinician Integumentary (Hair/Skin/Nails): Open Sore Musculoskeletal: Deformities Neurological: Loss of Protective Sensation Prior Wound History: Drainage, Erythema, Malodor Patient denies complaints or symptoms related to: Cardiovascular (Central): Dyspnea on Exertion, Irregular heart beat Constitutional Symptoms (General Health): Chills, Fever, Loss of Appetite Gastrointestinal (GI): Nausea / Vomiting, Stomach/abdominal pain Hematologic/Lymphatic: Bleeding / Clotting Disorders, Bleeding Tendency Musculoskeletal: Assistive Devices Psychiatric: Memory Loss Respiratory: Oxygen Use OBJECTIVE Constitutional BP elevated; Afebrile; Alert and in no distress. Well developed. Alert. Clean appearing.. Height/Length: 74 in (187.96 cm), Weight: 289.4 lbs (131.55 kgs), BMI: 37.2, Temperature: 97.6 ?F (36.44 ?C), Pulse: 73 bpm, Respiratory Rate: 18 breaths/min, Blood Pressure: 145/87 mmHg, Pulse Oximetry: 97 %. Ears, Nose, Mouth, and Throat: No clinically significant hearing loss on informal examination. Respiratory: No respiratory distress. Even respirations and without use of accessory muscles.. Cardiovascular: Pedal pulses 2+ on affected limb. Affected extremity exhibits no peripheral edema or cyanosis, is warm, and is well perfused. Capillary refill is less than 2 seconds. Gastrointestinal (GI): Obese. Nondistended.. Musculoskeletal: Significant plantar flexion of right 3rd toe. Significant plantar flexion of left 3rd toe. Integumentary (Hair, Skin) No periwound erythema, warmth, or significant drainage. No periwound rashes appreciated or noted otherwise.. Refer to appropriate clinician wound documentation for this visit; right 3rd toe ulcer extends to bone with base mostly covered with red friable granulation , remainder fibrin and slough; left distal 3rd toe ulcer extends to subcut with base covered with pink granulation. Significant amount of callus in the periulcer areas. Wound #2 Right Third Toe is an acute Partial Thickness Neuropathic Ulcer and has received a status of Not Healed. Subsequent wound encounter measurements are 0.2cm length x 0.2cm width x 0.1cm depth, with an area of 0.04 sq cm and a volume of 0.004 cubic cm. No tunneling has been noted. No sinus tract has been noted. No undermining has been noted. There was no drainage noted. The patient reports a wound pain of level 0/10. The wound margin is unattached. Wound bed has No epithelialization, No eschar, Yes slough , No granulation. The periwound skin moisture is normal. The periwound skin exhibited: Callus. The periwound skin did not exhibit: Brawny Induration, Edema, Excoriation, Induration, Crepitus, Fluctuance, Friable, Rash, Atrophie Meghann, Cyanosis, Ecchymosis, Erythema, Hemosiderosis, Pallor, Rubor. The temperature of the periwound skin is WNL. Periwound skin does not exhibit signs or symptoms of infection. Local Pulse is Strong. Wound #6 Left Third Toe is an acute Partial Thickness Neuropathic Ulcer and has received a status of Not Healed. Subsequent wound encounter measurements are 0.4cm length x 0.5cm width x 0.1cm depth, with an area of 0.2 sq cm and a volume of 0.02 cubic cm. No tunneling has been noted. No sinus tract has been noted. No undermining has been noted. There was no drainage noted. The patient reports no wound pain due to the wound being insensate. The wound margin is attached. Wound bed has No epithelialization, No eschar, No slough, Yes bright red, pink, firm granulation. The periwound skin moisture is normal. The periwound skin color is normal. The periwound skin exhibited: Callus. The periwound skin did not exhibit: Brawny Induration, Edema, Excoriation, Crepitus, Fluctuance, Friable, Rash. The temperature of the periwound skin is WNL. Periwound skin does not exhibit signs or symptoms of infection. Local Pulse is Palpable. Neurological: Cranial nerves grossly intact with symmetric function normal by informal observation.. ASSESSMENT Active Problems ICD-10 (Encounter Diagnosis) L97.512 - Non-pressure chronic ulcer of other part of right foot with fat layer exposed (Encounter Diagnosis) L97.522 - Non-pressure chronic ulcer of other part of left foot with fat layer exposed (Encounter Diagnosis) M20.61 - Acquired deformities of toe(s), unspecified, right foot (Encounter Diagnosis) M86.671 - Other chronic osteomyelitis, right ankle and foot PROCEDURES Wound #2 Wound #2 (Neuropathic Ulcer) is located on the right third toe. A skin/ subcutaneous tissue level surgical debridement with a total area debrided of 0.04 sq cm was performed by Gustavo Mendoza MD. Subcutaneous was removed along with devitalized tissue: callus and slough. The following instrument(s) were used: curette. Pain control was achieved using 4% Lido. A time out was conducted prior to the start of the procedure. A minimal amount of bleeding was controlled with n/a. The procedure was tolerated well with a pain level of 0 throughout and a pain level of 0 following the procedure. Post Debridement Measurements: 0.2cm length x 0.2cm width x 0.2cm depth; with an area of 0.04 sq cm and a volume of 0.008 cubic cm; Wound #6 Wound #6 (Neuropathic Ulcer) is located on the left third toe. A selective debridement with a total area debrided of 0.2 sq cm was performed by Gustavo Mendoza MD. to remove devitalized tissue: callus. The following instrument(s) were used: curette. Pain control was achieved using 4% Lido. A time out was conducted prior to the start of the procedure. A minimal amount of bleeding was controlled with n/a. The procedure was tolerated well with a pain level of 0 throughout and a pain level of 0 following the procedure. Post Debridement Measurements: 0.4cm length x 0.5cm width x 0.2cm depth; with an area of 0.2 sq cm and a volume of 0.04 cubic cm; Additional Information Muscle fascia or bone removed and sent to pathology?: No PLAN Wound Orders: Wound #2 Right Third Toe Anesthetic Topical Xylocaine to wound bed. Cleanser Cleanse Wound: - Normal Saline and gauze. May use distilled water at home. Topical Treatments Antibiotic/Antimicrobial Ointment/Cream. - Gentamicin Dressings Cover and secure with: - Foam and secure with hypafix tape. Toe crest to toes to off load. Both third toes of right and left feet. Change Dressing: - Every day Off-Loading Keep weight off: - Toe Crests. Wound #6 Left Third Toe Anesthetic Topical Xylocaine to wound bed. Cleanser Cleanse Wound: - Normal Saline and gauze. May use distilled water at home. Topical Treatments Antibiotic/Antimicrobial Ointment/Cream. - Gentamicin Dressings Cover and secure with: - Foam and secure with hypafix tape. Toe crest to toes to off load. Both third toes of right and left feet. Change Dressing: - Every day Off-Loading Keep weight off: - Toe Crests. Follow-Up Appointments Return Appointment: - - One week. Other information: If you develop fever, chills, increased pain, drainage, redness or swelling please call our office. If after hours, respond to the ER. Should you experience any significant changes in your wound(s) or have any questions regarding your home care instructions please contact the wound center @ [phone]. If after hours, contact your primary care physician or go to the hospital emergency room. Laboratory: Bacteria identified in Wound by Culture General Notes: We will call with any positive wound cultures requiring antibiotics. We will send a referral to Dr. Pastrana for podiatry. I've reviewed the clinician's documentation and agree with the evaluation and plan as written. In addition, the patient's ulcer demonstrates evidence of non-viable devitalized tissue which will continue to benefit from sharp debridement to help promote granulation and expedite healing. Also, I've repeated a deep wound culture of the right 3rd toe ulcer. I'll refer the patient to [facility] as well due to the refractory nature of the ulcer, my concern for chronic osteomyelitis of the distal phalanx, and for consideration of bone debridement. Electronic Signature(s) Signed By: Date: Gustavo Mendoza MD 08/24/2017 15:39:04 Entered By: Gustavo Mendoza on 08/24/2017 11:53:58
== END ==
PROVIDERS: PCP Family Medicine; Visit Provider Internal Medicine
DX: L97.522 Non-pressure chronic ulcer of other part of left foot with fat layer exposed (principal); L97.516 Non-pressure chronic ulcer of other part of right foot with bone involvement without evidence of necrosis; M20.61 Acquired deformities of toe(s), unspecified, right foot; M86.671 Other chronic osteomyelitis, right ankle and foot
CPT/HCPCS: 11042; 87070; 87075; 87205; 97597

== ENCOUNTER → 2017-08-31 14:14 | Outpatient (CLI) | payer OTHER, SELFPAY ==
--- NOTE | 2017-08-31 | OV.WND_ITS ---
Progress Note Details Patient Name: Gustavo Worley Patient Number: [id number] PatientPatientDate: 08/31/2017 Clinician: Huong Harp Clinician Cosigner: Meenu Ng Physician / Supervisor Rework: Reji Gustavo SUBJECTIVE Chief Complaint This information was obtained from the patient Neuropathic ulcer to right 3rd toe. Allergies NKDA HPI This information was obtained from the patient 08/31/17. Seen by Dr. Mendoza. 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 He's also been contacted by podiatry to schedule an appointment to review possible chronic osteomyelitis of the right 3rd toe distal phalanx but he's not yet called them back to schedule a date. 08/24/17. Seen by Dr. Mendoza. 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 Of note, he was pressure washing a boat yesterday and feels the ulcers may have gotten wet. He also completed an extended course of antibiotics recently that was treating acute osteomyelitis of the distal right 3rd toe and as of last week the overlying ulcer appeared to be nearly healed. 08/17/17. Seen by Dr. Mendoza. The patient's wound culture from the last visit grew MSSA, a resistant coag negative Staph, and a Sphingomonas species. He's now on clindamycin and does not report significant drainage associated with the right and left 3rd toe non-pressure ulcers. 08/10/17. Seen by Dr. Mendoza. 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 He's also completed his course of doxycycline for a total of 6 weeks of antibiotics which was prescribed for acute osteomyelitis of the distal right 3rd toe. He does not report pain in this toe as he had previously nor adverse side effects of the antibiotics. He typically keeps his feet covered when in the shower but notes last night he did not as he felt he needed to wash his feet. 08/03/17. Seen by Ryan Dacosta PA-C. The patient reports stable drainage from his right 3rd toe ulcer. He continues on doxycycline to treat the osteomyelitis underlying the ulcer. The patient also reports a new ulcer on his left foot which began spontaneously, and has been continually present for the past 4 days. The new ulcer has had clear drainage and no associated erythema. 07/27/17. Seen by Dr. Mendoza. The patient continues on doxycycline for osteomyelitis of the right 3rd toe without reporting adverse side effects and staff feel the associated right 3rd toe neuropathic ulcer continues to improve over the past week. Of note, the patient injured his back and has been off of work for a few days which has contributed to offloading the ulcer. 07/20/17. Seen by Dr. Mendoza. The patient continues on doxycycline for osteomyelitis of the right 3rd toe without reporting adverse side effects and staff feel the associated right 3rd toe neuropathic ulcer has improved considerably over the past week. 07/13/17. Seen by Dr. Mendoza. The patient continues on doxycycline for osteomyelitis of the right 3rd toe without reporting adverse side effects. He also states he's been quite active working and feels he's not been offloading the toe as much as he should. 07/05/17. Seen Dr. Mendoza. The patient continues on doxycycline for osteomyelitis of the right 3rd toe that was seen on his MRI 2 weeks ago. He does not report significant drainage or pain at the site and he has taken the last week off of work and improved his offloading of the toe. 06/27/17. Seen by Dr. Mendoza. The patient's now on doxycycline for osteomyelitis of the right 3rd toe that was seen on his MRI last week. He does not report significant drainage or pain at the site and he continues to work a regular schedule as a longer which has made it very difficult to offload the ulcer adequately. 06/20/17. Seen by Dr. Mendoza. 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 06/12/17. Seen by Dr. Mendoza. 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 His MRI to evaluate for underlying osteomyelitis has not yet been approved any continues on oral antibiotics to treat the MSSA positive wound culture noting we were able to probe to bone at his last visit. 06/06/17. Seen by Dr. Mendoza. The patient reports recurrence of pain associated with the chronic right third toe neuropathic ulcer over the past week. 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 He notes a new ulcer beneath the left first toe that is similar to the one beneath the right first toe noted on last exam. 05/31/17. Seen by Dr. Mendoza. Staff report a persistence of the recently documented neuropathic ulcer under the base of the right first toe that originally appeared as a cracked callus. 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 05/24/17. Seen by Dr. Mendoza. The patient does not report seeing strange associated with chronic right third toe neuropathic ulcer since his last visit however he reports a new ulcer over the dorsum of the right first toe. 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 05/15/17. Seen by Dr. Mendoza. The patient has been off antibiotics since last Monday and is not report significant drainage, swelling, or pain associated with the chronic right third toe neuropathic ulcer since his last visit. He is offloading as recommended using lambswool to lift the toe noting the significant plantarflexion deformity and has purchased a larger shoe to help prevent callus formation. 05/02/17. Seen by Dr. Mendoza. The patient does not report increased drainage or pain associated with the chronic right third to neuropathic ulcers since his last visit. He will complete his course of doxycycline today and does not report other side effects. He is attempting to offload the toe by using a rolled foam dressing every notes that his shoes also may be too small and preventing optimal offloading of the ulcer. He did have an x-ray that did not confirm osteomyelitis. 05/03/17. Seen by Dr. Mendoza. 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 He was not able to find a toe lift to purchase as recommended to help offload the plantar flexed distal toe but has remained off work and minimized walking as recommended. 04/26/17. Seen by Dr. Mendoza. 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 His CT evaluating for osteomyelitis was not approved by insurance due to an xray not being performed prior. In general he feels his toe is improving although swelling and erythema persist. 04/19/17. Seen by Dr. Mendoza. 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 He does not report adverse side effects, fevers, or feeling unwell in general. 04/14/17. Seen by Ryan Dacosta PA-C. This patient is new to our clinic and was sent urgently from Dr. Mcgee on [facility] for evaluation of his right 3rd toe. The ulcer began spontaneously 1 week ago and in the past few days has become red and warm. His PCP took a swab culture and placed him empirically on Keflex. The patient is insensate at the ulcer site but has not been diagnosed with diabetes, though it has been noted that his A1c and random sugars have been slightly elevated at recent PCP appointments. 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 He also has an ulcer under his right great toe which he states has been present and stable for several weeks. Past Medical History This information was obtained from the patient Patient has a medical history of: Hyperlipidemia Gout Hypertension Osteoarthritis Complaints and Symptoms This information was obtained from the patient Patient complains of: General Notes: I have reviewed and concur with the Review of Systems and Past Family Social History documents completed by the clinician, I have reviewed and concur with the Wound Assessment document completed by the clinician Integumentary (Hair/Skin/Nails): Open Sore Musculoskeletal: Deformities Neurological: Loss of Protective Sensation Prior Wound History: Drainage, Erythema, Malodor Patient denies complaints or symptoms related to: Cardiovascular (Central): Dyspnea on Exertion, Irregular heart beat Constitutional Symptoms (General Health): Chills, Fever, Loss of Appetite Gastrointestinal (GI): Nausea / Vomiting, Stomach/abdominal pain Hematologic/Lymphatic: Bleeding / Clotting Disorders, Bleeding Tendency Musculoskeletal: Assistive Devices Psychiatric: Memory Loss Respiratory: Oxygen Use OBJECTIVE Constitutional BP elevated; Afebrile; Alert and in no distress. Well developed. Alert. Clean appearing.. Height/Length: 74 in (187.96 cm), Weight: 288.1 lbs (130.95 kgs), BMI: 37, Temperature: 97.1 ?F (36.17 ?C), Pulse: 69 bpm, Respiratory Rate: 18 breaths/min, Blood Pressure: 151/87 mmHg, Pulse Oximetry: 96 %. Ears, Nose, Mouth, and Throat: No clinically significant hearing loss on informal examination. Respiratory: No respiratory distress. Even respirations and without use of accessory muscles.. Cardiovascular: Affected extremity exhibits no peripheral edema or cyanosis, is warm, and is well perfused. Capillary refill is less than 2 seconds. Gastrointestinal (GI): Obese. Nondistended.. Musculoskeletal: Significant plantar flexion of right 3rd toe. Significant plantar flexion of left 3rd toe. Integumentary (Hair, Skin) No periwound erythema, warmth, or significant drainage. No periwound rashes appreciated or noted otherwise.. Refer to appropriate clinician wound documentation for this visit; left 3rd toe ulcer extends to subcut with base partially covered with pink granulation, remainder fibrin and slough; right 3rd toe ulcer extends to dermis. Moderate amount of callus in the periulcer areas. Wound #2 Right Third Toe is an acute Partial Thickness Neuropathic Ulcer and has received a status of Not Healed. Subsequent wound encounter measurements are 0.2cm length x 0.2cm width x 0.1cm depth, with an area of 0.04 sq cm and a volume of 0.004 cubic cm. No tunneling has been noted. No sinus tract has been noted. No undermining has been noted. There was no drainage noted. The patient reports a wound pain of level 0/10. The wound margin is unattached. Wound bed has No epithelialization, No eschar, Yes slough , No granulation. The periwound skin moisture is normal. The periwound skin exhibited: Callus. The periwound skin did not exhibit: Brawny Induration, Edema, Excoriation, Induration, Crepitus, Fluctuance, Friable, Rash, Atrophie [place], Cyanosis, Ecchymosis, Erythema, Hemosiderosis, Pallor, Rubor. The temperature of the periwound skin is WNL. Periwound skin does not exhibit signs or symptoms of infection. Local Pulse is Strong. Wound #6 Left Third Toe is an acute Partial Thickness Neuropathic Ulcer and has received a status of Not Healed. Subsequent wound encounter measurements are 0.3cm length x 0.3cm width x 0.1cm depth, with an area of 0.09 sq cm and a volume of 0.009 cubic cm. No tunneling has been noted. No sinus tract has been noted. No undermining has been noted. There is a small amount of sero-sanguineous drainage noted which has no odor. The patient reports no wound pain due to the wound being insensate. The wound margin is attached. Wound bed has No epithelialization, No eschar, Yes slough, Yes pink, firm granulation. The periwound skin moisture is normal. The periwound skin color is normal. The periwound skin exhibited: Callus. The periwound skin did not exhibit: Brawny Induration, Edema, Excoriation, Crepitus, Fluctuance, Friable, Rash. The temperature of the periwound skin is WNL. Periwound skin does not exhibit signs or symptoms of infection. Local Pulse is Palpable. Neurological: Cranial nerves grossly intact with symmetric function normal by informal observation.. ASSESSMENT Active Problems ICD-10 (Encounter Diagnosis) L97.512 - Non-pressure chronic ulcer of other part of right foot with fat layer exposed (Encounter Diagnosis) L97.522 - Non-pressure chronic ulcer of other part of left foot with fat layer exposed (Encounter Diagnosis) M20.61 - Acquired deformities of toe(s), unspecified, right foot PROCEDURES Wound #2 Wound #2 (Neuropathic Ulcer) is located on the right third toe. A non-selective mechanical debridement with a total area debrided of 0.01 sq cm was performed by Gustavo Mendoza MD. Non-viable tissue was removed.The procedure was tolerated well with a pain level of 0 throughout and a pain level of 0 following the procedure. Post Debridement Measurements: 0.1cm length x 0.1cm width x 0.1cm depth; with an area of 0.01 sq cm and a volume of 0.001 cubic cm; General Notes: Callus and drainage removed Wound #6 Wound #6 (Neuropathic Ulcer) is located on the left third toe. A skin/ subcutaneous tissue level surgical debridement with a total area debrided of 0.09 sq cm was performed by Gustavo Mendoza MD. Non-viable tissue, including subcutaneous along with devitalized tissue : callus and slough. The following instrument(s) were used: curette. Pain control was achieved using 4% [place]. A time out was conducted prior to the start of the procedure. A minimal amount of bleeding was controlled with other. The procedure was tolerated well with a pain level of 0 throughout and a pain level of 0 following the procedure. Post Debridement Measurements: 0.3cm length x 0.3cm width x 0.2cm depth; with an area of 0.09 sq cm and a volume of 0.018 cubic cm; PLAN Wound Orders: Wound #2 Right Third Toe Anesthetic Topical Xylocaine to wound bed. Cleanser Cleanse Wound: - Normal Saline and gauze. May use distilled water at home. Topical Treatments Antibiotic/Antimicrobial Ointment/Cream. - Gentamicin Dressings Cover and secure with: - Foam and secure with hypafix tape. Toe crest to toes to off load. Both third toes of right and left feet. Change Dressing: - Every day Off-Loading Keep weight off: - Toe Crests. Wound #6 Left Third Toe Anesthetic Topical Xylocaine to wound bed. Cleanser Cleanse Wound: - Normal Saline and gauze. May use distilled water at home. Topical Treatments Antibiotic/Antimicrobial Ointment/Cream. - Gentamicin Dressings Cover and secure with: - Foam and secure with hypafix tape. Toe crest to toes to off load. Both third toes of right and left feet. Change Dressing: - Every day Off-Loading Keep weight off: - Toe Crests. Follow-Up Appointments Return Appointment: - - One week. Other information: If you develop fever, chills, increased pain, drainage, redness or swelling please call our office. If after hours, respond to the ER. Should you experience any significant changes in your wound(s) or have any questions regarding your home care instructions please contact the wound center @ [phone]. If after hours, contact your primary care physician or go to the hospital emergency room. I've reviewed the clinician's documentation and agree with the evaluation and plan as written. In addition, the patient's ulcer demonstrates evidence of non-viable devitalized tissue which will continue to benefit from sharp debridement to help promote granulation and expedite healing. Both ulcers have improved since last week with improved offloading while using his new toe lifts. I've still advised him to schedule an appointment with podiatry however noting the right 3rd toe ulcer's been a recurrent problem and related to the acquired deformity and recurrent callus formation. Electronic Signature(s) Signed By: Date: Gustavo Mendoza MD 09/01/2017 06:52:26 Entered By: Gustavo Mendoza on 09/01/2017 06:50:36
== END ==
PROVIDERS: PCP Family Medicine; Visit Provider Internal Medicine
DX: G90.8 Other disorders of autonomic nervous system (principal); L97.511 Non-pressure chronic ulcer of other part of right foot limited to breakdown of skin; L97.522 Non-pressure chronic ulcer of other part of left foot with fat layer exposed; M20.61 Acquired deformities of toe(s), unspecified, right foot
CPT/HCPCS: 11042

== ENCOUNTER → 2017-09-07 14:07 | Outpatient (CLI) | payer OTHER, SELFPAY | PROVIDERS: PCP Family Medicine; Visit Provider Internal Medicine | DX: G90.9 Disorder of the autonomic nervous system, unspecified (principal); L97.512 Non-pressure chronic ulcer of other part of right foot with fat layer exposed; L97.522 Non-pressure chronic ulcer of other part of left foot with fat layer exposed; M20.61 Acquired deformities of toe(s), unspecified, right foot; M86.171 Other acute osteomyelitis, right ankle and foot | CPT/HCPCS: 11042; 87070; 87075; 87077; 87186; 87205 ==

== ENCOUNTER → 2017-09-13 09:15 | Outpatient (CLI) | payer OTHER, SELFPAY | PROVIDERS: PCP Family Medicine; Visit Provider Internal Medicine | DX: L97.512 Non-pressure chronic ulcer of other part of right foot with fat layer exposed (principal); L97.522 Non-pressure chronic ulcer of other part of left foot with fat layer exposed; L92.9 Granulomatous disorder of the skin and subcutaneous tissue, unspecified; M20.61 Acquired deformities of toe(s), unspecified, right foot; M86.671 Other chronic osteomyelitis, right ankle and foot | CPT/HCPCS: 17250 ==

== ENCOUNTER → 2017-09-21 09:16 | Outpatient (CLI) | payer OTHER, SELFPAY ==
--- NOTE | 2017-09-21 | OV.WND_ITS ---
Progress Note Details Patient Name: Gustavo Worley Patient Number: [id number] PatientPatientDate: 09/21/2017 Clinician: Rosie Abernathy Clinician Cosigner: Huong Harp Physician / Paralegal Instructor: Gustavo Mendoza SUBJECTIVE Chief Complaint This information was obtained from the patient Neuropathic ulcers to right and left 3rd toes. Allergies [facility] This information was obtained from the patient 09/21/17. Seen by Dr. Mendoza. 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 He's scheduled for amputation of the right 3rd toe due to refractory osteomyelitis with Dr. Pastrana next week. 09/13/17. Seen by Dr. Mendoza. 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 He was seen by Dr. Pastrana who's recommending amputation of the right 3rd toe due to recurrent and refractory osteomyelitis which is complicated by a non-healing distal ulcer. 09/08/17. Seen by Dr. Mendoza. 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 He has an appointment with podiatry this afternoon to review the right 3rd toe ulcer which has been a recurrent problem while the toe's been treated for acute osteomyelitis. My concern is that the osteomyelitis may not have resolved and he may require bone debridement to allow the ulcer to eventually completely heal. 08/31/17. Seen by Dr. Mendoza. 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 He's also been contacted by podiatry to schedule an appointment to review possible chronic osteomyelitis of the right 3rd toe distal phalanx but he's not yet called them back to schedule a date. 08/24/17. Seen by Dr. Mendoza. 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 Of note, he was pressure washing a boat yesterday and feels the ulcers may have gotten wet. He also completed an extended course of antibiotics recently that was treating acute osteomyelitis of the distal right 3rd toe and as of last week the overlying ulcer appeared to be nearly healed. 08/17/17. Seen by Dr. Mendoza. The patient's wound culture from the last visit grew MSSA, a resistant coag negative Staph, and a Sphingomonas species. He's now on clindamycin and does not report significant drainage associated with the right and left 3rd toe non-pressure ulcers. 08/10/17. Seen by Dr. Mendoza. 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 He's also completed his course of doxycycline for a total of 6 weeks of antibiotics which was prescribed for acute osteomyelitis of the distal right 3rd toe. He does not report pain in this toe as he had previously nor adverse side effects of the antibiotics. He typically keeps his feet covered when in the shower but notes last night he did not as he felt he needed to wash his feet. 08/03/17. Seen by Ryan Dacosta PA-C. The patient reports stable drainage from his right 3rd toe ulcer. He continues on doxycycline to treat the osteomyelitis underlying the ulcer. The patient also reports a new ulcer on his left foot which began spontaneously, and has been continually present for the past 4 days. The new ulcer has had clear drainage and no associated erythema. 07/27/17. Seen by Dr. Mendoza. The patient continues on doxycycline for osteomyelitis of the right 3rd toe without reporting adverse side effects and staff feel the associated right 3rd toe neuropathic ulcer continues to improve over the past week. Of note, the patient injured his back and has been off of work for a few days which has contributed to offloading the ulcer. 07/20/17. Seen by Dr. Mendoza. The patient continues on doxycycline for osteomyelitis of the right 3rd toe without reporting adverse side effects and staff feel the associated right 3rd toe neuropathic ulcer has improved considerably over the past week. 07/13/17. Seen by Dr. Mendoza. The patient continues on doxycycline for osteomyelitis of the right 3rd toe without reporting adverse side effects. He also states he's been quite active working and feels he's not been offloading the toe as much as he should. 07/05/17. Seen Dr. Mendoza. The patient continues on doxycycline for osteomyelitis of the right 3rd toe that was seen on his MRI 2 weeks ago. He does not report significant drainage or pain at the site and he has taken the last week off of work and improved his offloading of the toe. 06/27/17. Seen by Dr. Mendoza. The patient's now on doxycycline for osteomyelitis of the right 3rd toe that was seen on his MRI last week. He does not report significant drainage or pain at the site and he continues to work a regular schedule as a longer which has made it very difficult to offload the ulcer adequately. 06/20/17. Seen by Dr. Mendoza. 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 06/12/17. Seen by Dr. Mendoza. 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 His MRI to evaluate for underlying osteomyelitis has not yet been approved any continues on oral antibiotics to treat the MSSA positive wound culture noting we were able to probe to bone at his last visit. 06/06/17. Seen by Dr. Mendoza. The patient reports recurrence of pain associated with the chronic right third toe neuropathic ulcer over the past week. 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 He also continues his work as a firearms specialist. He notes a new ulcer beneath the left first toe that is similar to the one beneath the right first toe noted on last exam. 05/31/17. Seen by Dr. Mendoza. Staff report a persistence of the recently documented neuropathic ulcer under the base of the right first toe that originally appeared as a cracked callus. 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 05/24/17. Seen by Dr. Mendoza. The patient does not report seeing strange associated with chronic right third toe neuropathic ulcer since his last visit however he reports a new ulcer over the dorsum of the right first toe. He has returned to working as a firearms specialist and states he feels the new ulcers related to work on very steep hill sides and the fact that a makeshift toe lift dressing offloading the third toe and attached to the first toe may have been rubbing and causing the new ulcer. 05/15/17. Seen by Dr. Mendoza. The patient has been off antibiotics since last Monday and is not report significant drainage, swelling, or pain associated with the chronic right third toe neuropathic ulcer since his last visit. He is offloading as recommended using lambswool to lift the toe noting the significant plantarflexion deformity and has purchased a larger shoe to help prevent callus formation. 05/02/17. Seen by Dr. Mendoza. The patient does not report increased drainage or pain associated with the chronic right third to neuropathic ulcers since his last visit. He will complete his course of doxycycline today and does not report other side effects. He is attempting to offload the toe by using a rolled foam dressing every notes that his shoes also may be too small and preventing optimal offloading of the ulcer. He did have an x-ray that did not confirm osteomyelitis. 05/03/17. Seen by Dr. Mendoza. 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 He was not able to find a toe lift to purchase as recommended to help offload the plantar flexed distal toe but has remained off work and minimized walking as recommended. 04/26/17. Seen by Dr. Mendoza. 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 His CT evaluating for osteomyelitis was not approved by insurance due to an xray not being performed prior. In general he feels his toe is improving although swelling and erythema persist. 04/19/17. Seen by Dr. Mendoza. 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 He does not report adverse side effects, fevers, or feeling unwell in general. 04/14/17. Seen by Ryan Dacosta PA-C. This patient is new to our clinic and was sent urgently from Dr. Mcgee on [facility] for evaluation of his right 3rd toe. The ulcer began spontaneously 1 week ago and in the past few days has become red and warm. His PCP took a swab culture and placed him empirically on Keflex. The patient is insensate at the ulcer site but has not been diagnosed with diabetes, though it has been noted that his A1c and random sugars have been slightly elevated at recent PCP appointments. 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 He also has an ulcer under his right great toe which he states has been present and stable for several weeks. 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, Tobacco Use ( deprecated) - never Past Medical History This information was obtained from the patient Patient has a medical history of: Hyperlipidemia Gout Hypertension Osteoarthritis Surgical History This information was obtained from the patient Patient has a surgical history of: COLONOSCOPY COLLJ SPEC SPX NERNIA REPAIR TYMPANOSTOMY GENERAL ANESTHESIA Complaints and Symptoms This information was obtained from the patient Patient complains of: General Notes: I have reviewed and concur with the Review of Systems and Past Family Social History documents completed by the clinician, I have reviewed and concur with the Wound Assessment document completed by the clinician Integumentary (Hair/Skin/Nails): Open Sore Musculoskeletal: Deformities Neurological: Loss of Protective Sensation Prior Wound History: Drainage, Erythema, Malodor Patient denies complaints or symptoms related to: Cardiovascular (Central): Dyspnea on Exertion, Irregular heart beat Constitutional Symptoms (General Health): Chills, Fever, Loss of Appetite Gastrointestinal (GI): Nausea / Vomiting, Stomach/abdominal pain Hematologic/Lymphatic: Bleeding / Clotting Disorders, Bleeding Tendency Musculoskeletal: Assistive Devices Psychiatric: Memory Loss Respiratory: Oxygen Use OBJECTIVE Constitutional Vital signs reviewed and noted. Well developed. Alert. Clean appearing.. Height/ Length: 74 in (187.96 cm), Weight: 284.9 lbs (129.5 kgs), BMI: 36.6, Temperature: 98.0 ?F ( 36.67 ?C), Pulse: 66 bpm, Respiratory Rate: 18 breaths/min, Blood Pressure: 118/75 mmHg, Pulse Oximetry: 99 %. Ears, Nose, Mouth, and Throat: No clinically significant hearing loss on informal examination. Respiratory: No respiratory distress. Even respirations and without use of accessory muscles.. Cardiovascular: Affected extremity exhibits no peripheral edema or cyanosis, is warm, and is well perfused. Capillary refill is less than 2 seconds. Integumentary (Hair, Skin) Mild right 3rd toe periwound erythema without warmth; improved from last visit. Refer to appropriate clinician wound documentation for this visit; right and left foot ulcers extend to subcut; right covered with callus; left base hypergranulated but smaller than on last review. Wound #2 Right Third Toe is an acute Partial Thickness Neuropathic Ulcer and has received a status of Not Healed. Subsequent wound encounter measurements are 0.4cm length x 0.4cm width x 0.1cm depth, with an area of 0.16 sq cm and a volume of 0.016 cubic cm. No tunneling has been noted. No sinus tract has been noted. No undermining has been noted. There was no drainage noted. The patient reports a wound pain of level 0/10. The wound margin is callus. Wound bed has No epithelialization, Yes eschar, No slough, No granulation. The periwound skin moisture is normal. The periwound skin exhibited: Callus. The periwound skin did not exhibit: Brawny Induration, Edema, Excoriation, Induration, Crepitus, Fluctuance, Friable, Rash, Atrophie [place], Cyanosis, Ecchymosis, Erythema, Hemosiderosis, Pallor, Rubor. The temperature of the periwound skin is WNL. Periwound skin does not exhibit signs or symptoms of infection. Local Pulse is Strong. General Notes: Dried callus measurement. Wound #6 Left Third Toe is an acute Partial Thickness Neuropathic Ulcer and has received a status of Not Healed. Subsequent wound encounter measurements are 0.5cm length x 0.5cm width x 0.1cm depth, with an area of 0.25 sq cm and a volume of 0.025 cubic cm. Hypergranulation was noted. No tunneling has been noted. No sinus tract has been noted. No undermining has been noted. There is a small amount of serous drainage noted which has no odor. The patient reports no wound pain due to the wound being insensate. The wound margin is callus. Wound bed has No epithelialization, No eschar, Yes slough, Yes pink, spongy granulation. The periwound skin moisture is normal. The periwound skin color is normal. The periwound skin exhibited: Callus, Friable. The periwound skin did not exhibit: Brawny Induration, Edema, Excoriation, Induration, Crepitus, Fluctuance, Rash. The temperature of the periwound skin is WNL. Periwound skin does not exhibit signs or symptoms of infection. Local Pulse is Palpable. General Notes: Hyper granulation and callus. Neurological: Cranial nerves grossly intact with symmetric function normal by informal observation.. ASSESSMENT Active Problems ICD-10 (Encounter Diagnosis) L97.512 - Non-pressure chronic ulcer of other part of right foot with fat layer exposed (Encounter Diagnosis) L97.522 - Non-pressure chronic ulcer of other part of left foot with fat layer exposed (Encounter Diagnosis) M86.671 - Other chronic osteomyelitis, right ankle and foot PROCEDURES Wound #6 Wound #6 (Neuropathic Ulcer) is located on the left third toe. A non-selective mechanical debridement with a total area debrided of 0.06 sq cm was performed by Gustavo Mendoza MD. Non-viable tissue was removed.The procedure was tolerated well with a pain level of 0 throughout and a pain level of 0 following the procedure. Post Debridement Measurements: 0.3cm length x 0.2cm width x 0.1cm depth; with an area of 0.06 sq cm and a volume of 0.006 cubic cm; General Notes: Silver nitrate to wound. PLAN Wound Orders: Wound #2 Right Third Toe Cleanser Cleanse Wound: - Normal Saline and gauze. May use distilled water at home. Dressings Cover and secure with: - Foam and secure with hypafix tape. Change Dressing: - Every other day or as needed if bandage gets soiled. Off-Loading Keep weight off: - Toe Crests. Wound #6 Left Third Toe Cleanser Cleanse Wound: - Normal Saline and gauze. May use distilled water at home. Dressings Cover and secure with: - Foam and secure with hypafix tape. Change Dressing: - Every other day or as needed if bandage gets soiled. Off-Loading Keep weight off: - Toe Crests. Additional Orders: Follow-Up Appointments Return Appointment: - - Call Elizabeth to schedule an appointment after you speak with Dr. Pastrana today . Other information: If you develop fever, chills, increased pain, drainage, redness or swelling please call our office. If after hours, respond to the ER. Should you experience any significant changes in your wound(s) or have any questions regarding your home care instructions please contact the wound center @ [phone]. If after hours, contact your primary care physician or go to the hospital emergency room. Scribing Attestation I attest, as the nurse, that I scribed these orders for the physician. In addition the presence of hypergranulation tissue in the wound was not an expected finding and was cauterized with silver nitrate. The patient's dressing regimen will be modified appropriately to attempt to reduce the formation of further hypergranulation tissue. Also, the patient will continue on antibiotics for chronic osteomyelitis of the right 3rd toe and we'll follow up with him after surgery regarding his left 3rd toe ulcer. Electronic Signature(s) Signed By: Date: Gustavo Mendoza MD 09/22/2017 14:56:11 Entered By: Gustavo Mendoza on 09/21/2017 15:30:54
== END ==
PROVIDERS: PCP Family Medicine; Visit Provider Internal Medicine
DX: G90.9 Disorder of the autonomic nervous system, unspecified (principal); L97.512 Non-pressure chronic ulcer of other part of right foot with fat layer exposed; L97.522 Non-pressure chronic ulcer of other part of left foot with fat layer exposed; M86.671 Other chronic osteomyelitis, right ankle and foot; L92.9 Granulomatous disorder of the skin and subcutaneous tissue, unspecified
CPT/HCPCS: 17250

== ENCOUNTER → 2017-09-28 09:29 | Outpatient (CLI) | payer OTHER, SELFPAY ==
--- NOTE | 2017-09-28 | OV.WND_ITS ---
Progress Note Details Patient Name: Gustavo Worley Patient Number: [id number] PatientPatientDate: 09/28/2017 Clinician: Meenu Ng Clinician Cosigner: Huong Harp Physician / Private Watchman: Reji Gustavo SUBJECTIVE Chief Complaint This information was obtained from the patient Neuropathic ulcers to right and left 3rd toes. Allergies [facility] This information was obtained from the patient 09/28/17. Seen by Dr. Mendoza. The patient underwent amputation of the right 3rd toe earlier this week due to refractory osteomyelitis and a non-healing neuropathic ulcer and does not report any complications. 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 09/21/17. Seen by Dr. Mendoza. 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 He's scheduled for amputation of the right 3rd toe due to refractory osteomyelitis with Dr. Pastrana next week. 09/13/17. Seen by Dr. Mendoza. 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 He was seen by Dr. Pastrana who's recommending amputation of the right 3rd toe due to recurrent and refractory osteomyelitis which is complicated by a non-healing distal ulcer. 09/08/17. Seen by Dr. Mendoza. 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 He has an appointment with podiatry this afternoon to review the right 3rd toe ulcer which has been a recurrent problem while the toe's been treated for acute osteomyelitis. My concern is that the osteomyelitis may not have resolved and he may require bone debridement to allow the ulcer to eventually completely heal. 08/31/17. Seen by Dr. Mendoza. 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 He's also been contacted by podiatry to schedule an appointment to review possible chronic osteomyelitis of the right 3rd toe distal phalanx but he's not yet called them back to schedule a date. 08/24/17. Seen by Dr. Mendoza. 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 Of note, he was pressure washing a boat yesterday and feels the ulcers may have gotten wet. He also completed an extended course of antibiotics recently that was treating acute osteomyelitis of the distal right 3rd toe and as of last week the overlying ulcer appeared to be nearly healed. 08/17/17. Seen by Dr. Mendoza. The patient's wound culture from the last visit grew MSSA, a resistant coag negative Staph, and a Sphingomonas species. He's now on clindamycin and does not report significant drainage associated with the right and left 3rd toe non-pressure ulcers. 08/10/17. Seen by Dr. Mendoza. 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 He's also completed his course of doxycycline for a total of 6 weeks of antibiotics which was prescribed for acute osteomyelitis of the distal right 3rd toe. He does not report pain in this toe as he had previously nor adverse side effects of the antibiotics. He typically keeps his feet covered when in the shower but notes last night he did not as he felt he needed to wash his feet. 08/03/17. Seen by Ryan Dacosta PA-C. The patient reports stable drainage from his right 3rd toe ulcer. He continues on doxycycline to treat the osteomyelitis underlying the ulcer. The patient also reports a new ulcer on his left foot which began spontaneously, and has been continually present for the past 4 days. The new ulcer has had clear drainage and no associated erythema. 07/27/17. Seen by Dr. Mendoza. The patient continues on doxycycline for osteomyelitis of the right 3rd toe without reporting adverse side effects and staff feel the associated right 3rd toe neuropathic ulcer continues to improve over the past week. Of note, the patient injured his back and has been off of work for a few days which has contributed to offloading the ulcer. 07/20/17. Seen by Dr. Mendoza. The patient continues on doxycycline for osteomyelitis of the right 3rd toe without reporting adverse side effects and staff feel the associated right 3rd toe neuropathic ulcer has improved considerably over the past week. 07/13/17. Seen by Dr. Mendoza. The patient continues on doxycycline for osteomyelitis of the right 3rd toe without reporting adverse side effects. He also states he's been quite active working and feels he's not been offloading the toe as much as he should. 07/05/17. Seen Dr. Mendoza. The patient continues on doxycycline for osteomyelitis of the right 3rd toe that was seen on his MRI 2 weeks ago. He does not report significant drainage or pain at the site and he has taken the last week off of work and improved his offloading of the toe. 06/27/17. Seen by Dr. Mendoza. The patient's now on doxycycline for osteomyelitis of the right 3rd toe that was seen on his MRI last week. He does not report significant drainage or pain at the site and he continues to work a regular schedule as a longer which has made it very difficult to offload the ulcer adequately. 06/20/17. Seen by Dr. Mendoza. 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 06/12/17. Seen by Dr. Mendoza. 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 His MRI to evaluate for underlying osteomyelitis has not yet been approved any continues on oral antibiotics to treat the MSSA positive wound culture noting we were able to probe to bone at his last visit. 06/06/17. Seen by Dr. Mendoza. The patient reports recurrence of pain associated with the chronic right third toe neuropathic ulcer over the past week. 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 He notes a new ulcer beneath the left first toe that is similar to the one beneath the right first toe noted on last exam. 05/31/17. Seen by Dr. Mendoza. Staff report a persistence of the recently documented neuropathic ulcer under the base of the right first toe that originally appeared as a cracked callus. 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 05/24/17. Seen by Dr. Mendoza. The patient does not report seeing strange associated with chronic right third toe neuropathic ulcer since his last visit however he reports a new ulcer over the dorsum of the right first toe. 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 05/15/17. Seen by Dr. Mendoza. The patient has been off antibiotics since last Monday and is not report significant drainage, swelling, or pain associated with the chronic right third toe neuropathic ulcer since his last visit. He is offloading as recommended using lambswool to lift the toe noting the significant plantarflexion deformity and has purchased a larger shoe to help prevent callus formation. 05/02/17. Seen by Dr. Mendoza. The patient does not report increased drainage or pain associated with the chronic right third to neuropathic ulcers since his last visit. He will complete his course of doxycycline today and does not report other side effects. He is attempting to offload the toe by using a rolled foam dressing every notes that his shoes also may be too small and preventing optimal offloading of the ulcer. He did have an x-ray that did not confirm osteomyelitis. 05/03/17. Seen by Dr. Mendoza. 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 He was not able to find a toe lift to purchase as recommended to help offload the plantar flexed distal toe but has remained off work and minimized walking as recommended. 04/26/17. Seen by Dr. Mendoza. 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 His CT evaluating for osteomyelitis was not approved by insurance due to an xray not being performed prior. In general he feels his toe is improving although swelling and erythema persist. 04/19/17. Seen by Dr. Mendoza. 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 He does not report adverse side effects, fevers, or feeling unwell in general. 04/14/17. Seen by Ryan Dacosta PA-C. This patient is new to our clinic and was sent urgently from Dr. Mcgee on [facility] for evaluation of his right 3rd toe. The ulcer began spontaneously 1 week ago and in the past few days has become red and warm. His PCP took a swab culture and placed him empirically on Keflex. The patient is insensate at the ulcer site but has not been diagnosed with diabetes, though it has been noted that his A1c and random sugars have been slightly elevated at recent PCP appointments. 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 He also has an ulcer under his right great toe which he states has been present and stable for several weeks. Past Medical History This information was obtained from the patient Patient has a medical history of: Hyperlipidemia Gout Hypertension Osteoarthritis Complaints and Symptoms This information was obtained from the patient Patient complains of: General Notes: I have reviewed and concur with the Review of Systems and Past Family Social History documents completed by the clinician, I have reviewed and concur with the Wound Assessment document completed by the clinician Integumentary (Hair/Skin/Nails): Open Sore Musculoskeletal: Deformities Neurological: Loss of Protective Sensation Prior Wound History: Drainage, Erythema, Malodor Patient denies complaints or symptoms related to: Cardiovascular (Central): Dyspnea on Exertion, Irregular heart beat Constitutional Symptoms (General Health): Chills, Fever, Loss of Appetite Gastrointestinal (GI): Nausea / Vomiting, Stomach/abdominal pain Hematologic/Lymphatic: Bleeding / Clotting Disorders, Bleeding Tendency Musculoskeletal: Assistive Devices Psychiatric: Memory Loss Respiratory: Oxygen Use OBJECTIVE Constitutional Vital signs reviewed and noted. Well developed. Alert. Clean appearing.. Height/ Length: 74 in (187.96 cm), Weight: 285 lbs (129.55 kgs), BMI: 36.6, (36.67 ?C), Pulse: 67 bpm, Respiratory Rate: 18 breaths/min, Pulse Oximetry: 98 %. Ears, Nose, Mouth, and Throat: No clinically significant hearing loss on informal examination. Gastrointestinal (GI): Obese. Nondistended.. Integumentary (Hair, Skin) No periwound erythema, warmth, or significant drainage. No periwound rashes appreciated or noted otherwise.. Refer to appropriate clinician wound documentation for this visit; left 3rd toe ulcer extends to subcut with base partially covered with red, hypergranulation, remainder fibrin and slough. Significant amount of callus in the periulcer area. Wound #2 Right Third Toe is an acute Partial Thickness Neuropathic Ulcer and has received an outcome of Amputated - distal to level anticipated. Subsequent wound encounter measurements are 0cm length x 0cm width with no measurable depth, with an area of 0 sq cm . No tunneling has been noted. No sinus tract has been noted. No undermining has been noted. There was no drainage noted. The patient reports a wound pain of level 0/ 10. The wound margin is callus. Wound bed has No epithelialization, No eschar, No slough , No granulation. The periwound skin moisture is normal. The periwound skin exhibited: Callus. The periwound skin did not exhibit: Brawny Induration, Edema, Excoriation, Induration, Crepitus, Fluctuance, Friable, Rash, Atrophie Meghann, Cyanosis, Ecchymosis, Erythema, Hemosiderosis, Pallor, Rubor. The temperature of the periwound skin is WNL. Periwound skin does not exhibit signs or symptoms of infection. Local Pulse is Strong. Wound #6 Left Third Toe is an acute Partial Thickness Neuropathic Ulcer and has received a status of Not Healed. Subsequent wound encounter measurements are 0.1cm length x 0.1cm width x 0.1cm depth, with an area of 0.01 sq cm and a volume of 0.001 cubic cm. Hypergranulation was noted. No tunneling has been noted. No sinus tract has been noted. No undermining has been noted. There is a small amount of serous drainage noted which has no odor. The patient reports no wound pain due to the wound being insensate. The wound margin is callus. Wound bed has No epithelialization, No eschar, Yes slough, Yes pink, spongy granulation. The periwound skin moisture is normal. The periwound skin color is normal. The periwound skin exhibited: Callus, Friable. The periwound skin did not exhibit: Brawny Induration, Edema, Excoriation, Induration, Crepitus, Fluctuance, Rash. The temperature of the periwound skin is WNL. Periwound skin does not exhibit signs or symptoms of infection. Local Pulse is Palpable. Neurological: Cranial nerves grossly intact with symmetric function normal by informal observation.. ASSESSMENT Active Problems ICD-10 (Encounter Diagnosis) L97.512 - Non-pressure chronic ulcer of other part of right foot with fat layer exposed (Encounter Diagnosis) L97.522 - Non-pressure chronic ulcer of other part of left foot with fat layer exposed (Encounter Diagnosis) M86.671 - Other chronic osteomyelitis, right ankle and foot PROCEDURES Wound #6 Wound #6 (Neuropathic Ulcer) is located on the left third toe. A non-selective mechanical debridement with a total area debrided of 0.04 sq cm was performed by Gustavo Mendoza MD. Non-viable tissue was removed.The procedure was tolerated well with a pain level of 0 throughout and a pain level of 0 following the procedure. Post Debridement Measurements: 0.2cm length x 0.2cm width x 0.1cm depth; with an area of 0.04 sq cm and a volume of 0.004 cubic cm; Wound #6 (Neuropathic Ulcer) is located on the left third toe. A Chemical Cauterization procedure was performed by Gustavo Mendoza MD. General Notes: Silver nitrate to hypergranulation. PLAN Wound Orders: Wound #6 Left Third Toe Cleanser Cleanse Wound: - Normal Saline and gauze. May use distilled water at home. Dressings Primary dressing: - Silver nitrate to hypergranulation. Cover and secure with: - Foam and secure with hypafix tape. Change Dressing: - Every other day or as needed if bandage gets soiled. Off-Loading Keep weight off: - Toe Crests. Additional Orders: Follow-Up Appointments Return Appointment: - - One week Other information: If you develop fever, chills, increased pain, drainage, redness or swelling please call our office. If after hours, respond to the ER. Should you experience any significant changes in your wound(s) or have any questions regarding your home care instructions please contact the wound center @ [phone]. If after hours, contact your primary care physician or go to the hospital emergency room. Scribing Attestation I attest, as the nurse, that I scribed these orders for the physician. In addition the presence of hypergranulation tissue in the wound was not an expected finding and was cauterized with silver nitrate. The patient's dressing regimen will be modified appropriately to attempt to reduce the formation of further hypergranulation tissue. Electronic Signature(s) Signed By: Date: Gustavo Mendoza MD 09/29/2017 09:29:15 Entered By: Gustavo Mendoza on 09/28/2017 10:35:16
== END ==
PROVIDERS: PCP Family Medicine; Visit Provider Internal Medicine
DX: G90.9 Disorder of the autonomic nervous system, unspecified (principal); L97.522 Non-pressure chronic ulcer of other part of left foot with fat layer exposed; L92.9 Granulomatous disorder of the skin and subcutaneous tissue, unspecified; M86.671 Other chronic osteomyelitis, right ankle and foot
CPT/HCPCS: 17250

== ENCOUNTER → 2017-10-05 09:45 | Outpatient (CLI) | payer OTHER, SELFPAY | PROVIDERS: PCP Family Medicine; Visit Provider Internal Medicine | DX: G90.9 Disorder of the autonomic nervous system, unspecified (principal); L97.521 Non-pressure chronic ulcer of other part of left foot limited to breakdown of skin; M20.62 Acquired deformities of toe(s), unspecified, left foot | CPT/HCPCS: 97597 ==

== ENCOUNTER → 2017-10-10 14:00 | Outpatient (CLI) | payer OTHER, SELFPAY ==
--- NOTE | 2017-10-10 | OV.WND_ITS ---
Progress Note Details Patient Name: Gustavo Worley Patient Number: [id number] PatientPatientDate: 10/10/2017 Clinician: Meenu Ng Physician / Application Support Manager: Gustavo Mendoza SUBJECTIVE Chief Complaint This information was obtained from the patient Neuropathic ulcers to right and left 3rd toes. Allergies NKDA HPI This information was obtained from the patient 10/10/17. Seen by Dr. Mendoza. The patient called today concerned about redness and the appearance of the left 3rd toe which we've been treating for a chronic distal toe neuropathic ulcer. He does not report pain in the toe or increased drainage from the ulcer nor a more proximal trauma wound thought to be due to shear from the toe life he's been wearing recently. 10/05/17. 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 09/28/17. Seen by Dr. Mendoza. The patient underwent amputation of the right 3rd toe earlier this week due to refractory osteomyelitis and a non-healing neuropathic ulcer and does not report any complications. 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 09/21/17. Seen by Dr. Mendoza. 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 He's scheduled for amputation of the right 3rd toe due to refractory osteomyelitis with Dr. Pastrana next week. 09/13/17. Seen by Dr. Mendoza. 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 He was seen by Dr. Pastrana who's recommending amputation of the right 3rd toe due to recurrent and refractory osteomyelitis which is complicated by a non-healing distal ulcer. 09/08/17. Seen by Dr. Mendoza. 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 He has an appointment with podiatry this afternoon to review the right 3rd toe ulcer which has been a recurrent problem while the toe's been treated for acute osteomyelitis. My concern is that the osteomyelitis may not have resolved and he may require bone debridement to allow the ulcer to eventually completely heal. 08/31/17. Seen by Dr. Mendoza. 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 He's also been contacted by podiatry to schedule an appointment to review possible chronic osteomyelitis of the right 3rd toe distal phalanx but he's not yet called them back to schedule a date. 08/24/17. Seen by Dr. Mendoza. 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 Of note, he was pressure washing a boat yesterday and feels the ulcers may have gotten wet. He also completed an extended course of antibiotics recently that was treating acute osteomyelitis of the distal right 3rd toe and as of last week the overlying ulcer appeared to be nearly healed. 08/17/17. Seen by Dr. Mendoza. The patient's wound culture from the last visit grew MSSA, a resistant coag negative Staph, and a Sphingomonas species. He's now on clindamycin and does not report significant drainage associated with the right and left 3rd toe non-pressure ulcers. 08/10/17. Seen by Dr. Mendoza. 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 He's also completed his course of doxycycline for a total of 6 weeks of antibiotics which was prescribed for acute osteomyelitis of the distal right 3rd toe. He does not report pain in this toe as he had previously nor adverse side effects of the antibiotics. He typically keeps his feet covered when in the shower but notes last night he did not as he felt he needed to wash his feet. 08/03/17. Seen by Ryan Dacosta PA-C. The patient reports stable drainage from his right 3rd toe ulcer. He continues on doxycycline to treat the osteomyelitis underlying the ulcer. The patient also reports a new ulcer on his left foot which began spontaneously, and has been continually present for the past 4 days. The new ulcer has had clear drainage and no associated erythema. 07/27/17. Seen by Dr. Mendoza. The patient continues on doxycycline for osteomyelitis of the right 3rd toe without reporting adverse side effects and staff feel the associated right 3rd toe neuropathic ulcer continues to improve over the past week. Of note, the patient injured his back and has been off of work for a few days which has contributed to offloading the ulcer. 07/20/17. Seen by Dr. Mendoza. The patient continues on doxycycline for osteomyelitis of the right 3rd toe without reporting adverse side effects and staff feel the associated right 3rd toe neuropathic ulcer has improved considerably over the past week. 07/13/17. Seen by Dr. Mendoza. The patient continues on doxycycline for osteomyelitis of the right 3rd toe without reporting adverse side effects. He also states he's been quite active working and feels he's not been offloading the toe as much as he should. 07/05/17. Seen Dr. Mendoza. The patient continues on doxycycline for osteomyelitis of the right 3rd toe that was seen on his MRI 2 weeks ago. He does not report significant drainage or pain at the site and he has taken the last week off of work and improved his offloading of the toe. 06/27/17. Seen by Dr. Mendoza. The patient's now on doxycycline for osteomyelitis of the right 3rd toe that was seen on his MRI last week. He does not report significant drainage or pain at the site and he continues to work a regular schedule as a longer which has made it very difficult to offload the ulcer adequately. 06/20/17. Seen by Dr. Mendoza. 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 06/12/17. Seen by Dr. Mendoza. 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 His MRI to evaluate for underlying osteomyelitis has not yet been approved any continues on oral antibiotics to treat the MSSA positive wound culture noting we were able to probe to bone at his last visit. 06/06/17. Seen by Dr. Mendoza. The patient reports recurrence of pain associated with the chronic right third toe neuropathic ulcer over the past week. 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 He notes a new ulcer beneath the left first toe that is similar to the one beneath the right first toe noted on last exam. 05/31/17. Seen by Dr. Mendoza. Staff report a persistence of the recently documented neuropathic ulcer under the base of the right first toe that originally appeared as a cracked callus. 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 05/24/17. Seen by Dr. Mendoza. The patient does not report seeing strange associated with chronic right third toe neuropathic ulcer since his last visit however he reports a new ulcer over the dorsum of the right first toe. He has returned to working as a muskrat trapper and states he feels the new ulcers related to work on very steep hill sides and the fact that a makeshift toe lift dressing offloading the third toe and attached to the first toe may have been rubbing and causing the new ulcer. 05/15/17. Seen by Dr. Mendoza. The patient has been off antibiotics since last Monday and is not report significant drainage, swelling, or pain associated with the chronic right third toe neuropathic ulcer since his last visit. He is offloading as recommended using lambswool to lift the toe noting the significant plantarflexion deformity and has purchased a larger shoe to help prevent callus formation. 05/02/17. Seen by Dr. Mendoza. The patient does not report increased drainage or pain associated with the chronic right third to neuropathic ulcers since his last visit. He will complete his course of doxycycline today and does not report other side effects. He is attempting to offload the toe by using a rolled foam dressing every notes that his shoes also may be too small and preventing optimal offloading of the ulcer. He did have an x-ray that did not confirm osteomyelitis. 05/03/17. Seen by Dr. Mendoza. 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 He was not able to find a toe lift to purchase as recommended to help offload the plantar flexed distal toe but has remained off work and minimized walking as recommended. 04/26/17. Seen by Dr. Mendoza. 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 His CT evaluating for osteomyelitis was not approved by insurance due to an xray not being performed prior. In general he feels his toe is improving although swelling and erythema persist. 04/19/17. Seen by Dr. Mendoza. 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 He does not report adverse side effects, fevers, or feeling unwell in general. 04/14/17. Seen by Ryan Dacosta PA-C. This patient is new to our clinic and was sent urgently from Dr. Mcgee on [facility] for evaluation of his right 3rd toe. The ulcer began spontaneously 1 week ago and in the past few days has become red and warm. His PCP took a swab culture and placed him empirically on Keflex. The patient is insensate at the ulcer site but has not been diagnosed with diabetes, though it has been noted that his A1c and random sugars have been slightly elevated at recent PCP appointments. 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 He also has an ulcer under his right great toe which he states has been present and stable for several weeks. Past Medical History This information was obtained from the patient Patient has a medical history of: Hyperlipidemia Gout Hypertension Osteoarthritis Complaints and Symptoms This information was obtained from the patient Patient complains of: General Notes: I have reviewed and concur with the Review of Systems and Past Family Social History documents completed by the clinician, I have reviewed and concur with the Wound Assessment document completed by the clinician Integumentary (Hair/Skin/Nails): Open Sore Musculoskeletal: Deformities Neurological: Loss of Protective Sensation Prior Wound History: Drainage, Erythema, Malodor Patient denies complaints or symptoms related to: Cardiovascular (Central): Dyspnea on Exertion, Irregular heart beat Constitutional Symptoms (General Health): Chills, Fever, Loss of Appetite Gastrointestinal (GI): Nausea / Vomiting, Stomach/abdominal pain Hematologic/Lymphatic: Bleeding / Clotting Disorders, Bleeding Tendency Musculoskeletal: Assistive Devices Psychiatric: Memory Loss Respiratory: Oxygen Use OBJECTIVE Constitutional BP elevated; Afebrile; Alert and in no distress. Well developed. Alert. Clean appearing.. Height/Length: 74 in (187.96 cm), Weight: 284 lbs (129.09 kgs), BMI: 36.5, Temperature: 98 ?F (36.67 ?C), Pulse: 71 bpm, Respiratory Rate: 18 breaths/min, Blood Pressure: 149/89 mmHg, Pulse Oximetry: 97 %. Ears, Nose, Mouth, and Throat: No clinically significant hearing loss on informal examination. Respiratory: No respiratory distress. Even respirations and without use of accessory muscles.. Cardiovascular: Affected extremity exhibits no peripheral edema or cyanosis, is warm, and is well perfused. Capillary refill is less than 2 seconds. Gastrointestinal (GI): Obese. Nondistended.. Integumentary (Hair, Skin) Moderate periwound erythema with warmth. Refer to appropriate clinician wound documentation for this visit; left foot ulcer extends to subcut with base partially covered with pink granulation, remainder fibrin and slough. Maceration and callus present in the periwound area. Wound #6 Left Third Toe is an acute Partial Thickness Neuropathic Ulcer and has received a status of Not Healed. Subsequent wound encounter measurements are 0.2cm length x 0.3cm width x 0.1cm depth, with an area of 0.06 sq cm and a volume of 0.006 cubic cm. Hypergranulation was noted. No tunneling has been noted. No sinus tract has been noted. Undermining has been noted at 12:00 and ends at 12:00 with a maximum distance of 0.5cm. There is a small amount of serous drainage noted which has no odor. The patient reports no wound pain due to the wound being insensate. The wound margin is callus. Wound bed has No epithelialization, No eschar, Yes slough, Yes pink, spongy granulation. The periwound skin moisture is normal. The periwound skin exhibited: Callus, Friable, Erythema. The periwound skin did not exhibit: Brawny Induration, Edema, Excoriation, Induration, Crepitus, Fluctuance, Rash. The temperature of the periwound skin is WNL. Periwound skin presents with s/s of infection. Confirmation Description and Treatment Plan is: Signs and Symptoms Present. Local Pulse is Palpable. Wound #7 Left, Proximal Third Toe is an acute Partial Thickness Neuropathic Ulcer and has received a status of Not Healed. Subsequent wound encounter measurements are 0.6cm length x 1.3cm width x 0.1cm depth, with an area of 0.78 sq cm and a volume of 0.078 cubic cm. No tunneling has been noted. No sinus tract has been noted. No undermining has been noted. There is a moderate amount of serosanguineous drainage noted which has no odor. The patient reports a wound pain of level 0/10. The wound margin is attached. Wound bed has Yes epithelialization, No eschar, Yes slough, Yes pink, firm granulation. The periwound skin texture is normal. The periwound skin moisture is normal. The periwound skin exhibited: Erythema. The temperature of the periwound skin is WNL. Periwound skin presents with s/s of infection. Confirmation Description and Treatment Plan is: Signs and Symptoms Present. Local Pulse is Palpable. Neurological: Cranial nerves grossly intact with symmetric function normal by informal observation.. ASSESSMENT Active Problems ICD-10 (Encounter Diagnosis) L97.522 - Non-pressure chronic ulcer of other part of left foot with fat layer exposed (Encounter Diagnosis) L97.521 - Non-pressure chronic ulcer of other part of left foot limited to breakdown of skin (Encounter Diagnosis) L03.116 - Cellulitis of left lower limb PROCEDURES Wound #6 Wound #6 (Neuropathic Ulcer) is located on the left third toe. A skin/ subcutaneous tissue level surgical debridement with a total area debrided of 0.06 sq cm was performed by Gustavo Mendoza MD. Subcutaneous was removed along with devitalized tissue: callus and slough. The following instrument(s) were used: curette. Pain control was achieved using 4% Lido. A time out was conducted prior to the start of the procedure. A minimal amount of bleeding was controlled with n/a. The procedure was tolerated well with a pain level of 0 throughout and a pain level of 0 following the procedure. Post Debridement Measurements: 0.2cm length x 0.3cm width x 0.2cm depth; with an area of 0.06 sq cm and a volume of 0.012 cubic cm; PLAN Wound Orders: Wound #6 Left Third Toe Anesthetic Topical Xylocaine to wound bed. - In clinic Cleanser Cleanse Wound: - Normal Saline May Shower. - Please avoid getting tap water in wound or on dressings. Cover while in the shower Off-Loading Keep weight off: - Left foot as much as possible Wound #7 Left, Proximal Third Toe Anesthetic Topical Xylocaine to wound bed. - In clinic Cleanser Cleanse Wound: - Normal Saline May Shower. - Please avoid getting tap water in wound or on dressings. Cover while in the shower Off-Loading Keep weight off: - Left foot as much as possible Additional Orders: Follow-Up Appointments Return Appointment: - - One week Other information: If you develop fever, chills, increased pain, drainage, redness or swelling please call our office. If after hours, respond to the ER. Should you experience any significant changes in your wound(s) or have any questions regarding your home care instructions please contact the wound center @ [phone]. If after hours, contact your primary care physician or go to the hospital emergency room. Scribing Attestation I attest, as the nurse, that I scribed these orders for the physician. Medications prescribed: doxycycline hyclate - oral 100 mg capsule twice daily for 7 days for cellulitis starting 10/10/2017 General Notes: Please supervisor opening and picking antibiotics and take as prescribed. I've reviewed the clinician's documentation and agree with the evaluation and plan as written. In addition, the patient's ulcer demonstrates evidence of non-viable devitalized tissue which will continue to benefit from sharp debridement to help promote granulation and expedite healing. Also, I've cultured the ulcer and started the patient on doxycycline empirically for cellulitis of the toe. Electronic Signature(s) Signed By: Date: Gustavo Mendoza MD 10/11/2017 07:48:36 Entered By: Gustavo Mendoza on 10/11/2017 07:22:54
== END ==
PROVIDERS: PCP Family Medicine; Visit Provider Internal Medicine
DX: G90.9 Disorder of the autonomic nervous system, unspecified (principal); L97.522 Non-pressure chronic ulcer of other part of left foot with fat layer exposed; L03.116 Cellulitis of left lower limb
CPT/HCPCS: 11042; 87070; 87075; 87077; 87147; 87186; 87205

== ENCOUNTER → 2017-10-17 10:23 | Outpatient (CLI) | payer OTHER, SELFPAY ==
--- NOTE | 2017-10-17 | OV.WND_ITS ---
Progress Note Details Patient Name: Gustavo Worley Patient Number: [id number] PatientPatientDate: 10/17/2017 Clinician: Meenu Ng Clinician Cosigner: Lian Linn Physician / Teamcenter Consultant: Reji Gustavo SUBJECTIVE Chief Complaint This information was obtained from the patient Neuropathic ulcers to right and left 3rd toes. Allergies [facility] This information was obtained from the patient 10/17/17. Seen by Dr. Mendoza. 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 10/10/17. Seen by Dr. Mendoza. The patient called today concerned about redness and the appearance of the left 3rd toe which we've been treating for a chronic distal toe neuropathic ulcer. He does not report pain in the toe or increased drainage from the ulcer nor a more proximal trauma wound thought to be due to shear from the toe life he's been wearing recently. 10/05/17. 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 09/28/17. Seen by Dr. Mendoza. The patient underwent amputation of the right 3rd toe earlier this week due to refractory osteomyelitis and a non-healing neuropathic ulcer and does not report any complications. 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 09/21/17. Seen by Dr. Mendoza. 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 He's scheduled for amputation of the right 3rd toe due to refractory osteomyelitis with Dr. Pastrana next week. 09/13/17. Seen by Dr. Mendoza. 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 He was seen by Dr. Pastrana who's recommending amputation of the right 3rd toe due to recurrent and refractory osteomyelitis which is complicated by a non-healing distal ulcer. 09/08/17. Seen by Dr. Mendoza. 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 He has an appointment with podiatry this afternoon to review the right 3rd toe ulcer which has been a recurrent problem while the toe's been treated for acute osteomyelitis. My concern is that the osteomyelitis may not have resolved and he may require bone debridement to allow the ulcer to eventually completely heal. 08/31/17. Seen by Dr. Mendoza. 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 He's also been contacted by podiatry to schedule an appointment to review possible chronic osteomyelitis of the right 3rd toe distal phalanx but he's not yet called them back to schedule a date. 08/24/17. Seen by Dr. Mendoza. 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 Of note, he was pressure washing a boat yesterday and feels the ulcers may have gotten wet. He also completed an extended course of antibiotics recently that was treating acute osteomyelitis of the distal right 3rd toe and as of last week the overlying ulcer appeared to be nearly healed. 08/17/17. Seen by Dr. Mendoza. The patient's wound culture from the last visit grew MSSA, a resistant coag negative Staph, and a Sphingomonas species. He's now on clindamycin and does not report significant drainage associated with the right and left 3rd toe non-pressure ulcers. 08/10/17. Seen by Dr. Mendoza. 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 He's also completed his course of doxycycline for a total of 6 weeks of antibiotics which was prescribed for acute osteomyelitis of the distal right 3rd toe. He does not report pain in this toe as he had previously nor adverse side effects of the antibiotics. He typically keeps his feet covered when in the shower but notes last night he did not as he felt he needed to wash his feet. 08/03/17. Seen by Ryan Dacosta PA-C. The patient reports stable drainage from his right 3rd toe ulcer. He continues on doxycycline to treat the osteomyelitis underlying the ulcer. The patient also reports a new ulcer on his left foot which began spontaneously, and has been continually present for the past 4 days. The new ulcer has had clear drainage and no associated erythema. 07/27/17. Seen by Dr. Mendoza. The patient continues on doxycycline for osteomyelitis of the right 3rd toe without reporting adverse side effects and staff feel the associated right 3rd toe neuropathic ulcer continues to improve over the past week. Of note, the patient injured his back and has been off of work for a few days which has contributed to offloading the ulcer. 07/20/17. Seen by Dr. Mendoza. The patient continues on doxycycline for osteomyelitis of the right 3rd toe without reporting adverse side effects and staff feel the associated right 3rd toe neuropathic ulcer has improved considerably over the past week. 07/13/17. Seen by Dr. Mendoza. The patient continues on doxycycline for osteomyelitis of the right 3rd toe without reporting adverse side effects. He also states he's been quite active working and feels he's not been offloading the toe as much as he should. 07/05/17. Seen Dr. Mendoza. The patient continues on doxycycline for osteomyelitis of the right 3rd toe that was seen on his MRI 2 weeks ago. He does not report significant drainage or pain at the site and he has taken the last week off of work and improved his offloading of the toe. 06/27/17. Seen by Dr. Mendoza. The patient's now on doxycycline for osteomyelitis of the right 3rd toe that was seen on his MRI last week. He does not report significant drainage or pain at the site and he continues to work a regular schedule as a longer which has made it very difficult to offload the ulcer adequately. 06/20/17. Seen by Dr. Mendoza. 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 06/12/17. Seen by Dr. Mendoza. 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 His MRI to evaluate for underlying osteomyelitis has not yet been approved any continues on oral antibiotics to treat the MSSA positive wound culture noting we were able to probe to bone at his last visit. 06/06/17. Seen by Dr. Mendoza. The patient reports recurrence of pain associated with the chronic right third toe neuropathic ulcer over the past week. 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 He notes a new ulcer beneath the left first toe that is similar to the one beneath the right first toe noted on last exam. 05/31/17. Seen by Dr. Mendoza. Staff report a persistence of the recently documented neuropathic ulcer under the base of the right first toe that originally appeared as a cracked callus. 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 05/24/17. Seen by Dr. Mendoza. The patient does not report seeing strange associated with chronic right third toe neuropathic ulcer since his last visit however he reports a new ulcer over the dorsum of the right first toe. 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 05/15/17. Seen by Dr. Mendoza. The patient has been off antibiotics since last Monday and is not report significant drainage, swelling, or pain associated with the chronic right third toe neuropathic ulcer since his last visit. He is offloading as recommended using lambswool to lift the toe noting the significant plantarflexion deformity and has purchased a larger shoe to help prevent callus formation. 05/02/17. Seen by Dr. Mendoza. The patient does not report increased drainage or pain associated with the chronic right third to neuropathic ulcers since his last visit. He will complete his course of doxycycline today and does not report other side effects. He is attempting to offload the toe by using a rolled foam dressing every notes that his shoes also may be too small and preventing optimal offloading of the ulcer. He did have an x-ray that did not confirm osteomyelitis. 05/03/17. Seen by Dr. Mendoza. 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 He was not able to find a toe lift to purchase as recommended to help offload the plantar flexed distal toe but has remained off work and minimized walking as recommended. 04/26/17. Seen by Dr. Mendoza. 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 His CT evaluating for osteomyelitis was not approved by insurance due to an xray not being performed prior. In general he feels his toe is improving although swelling and erythema persist. 04/19/17. Seen by Dr. Mendoza. 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 He does not report adverse side effects, fevers, or feeling unwell in general. 04/14/17. Seen by Ryan Dacosta PA-C. This patient is new to our clinic and was sent urgently from Dr. Mcgee on [facility] for evaluation of his right 3rd toe. The ulcer began spontaneously 1 week ago and in the past few days has become red and warm. His PCP took a swab culture and placed him empirically on Keflex. The patient is insensate at the ulcer site but has not been diagnosed with diabetes, though it has been noted that his A1c and random sugars have been slightly elevated at recent PCP appointments. 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 He also has an ulcer under his right great toe which he states has been present and stable for several weeks. Past Medical History This information was obtained from the patient Patient has a medical history of: Hyperlipidemia Gout Hypertension Osteoarthritis Complaints and Symptoms This information was obtained from the patient Patient complains of: General Notes: I have reviewed and concur with the Review of Systems and Past Family Social History documents completed by the clinician, I have reviewed and concur with the Wound Assessment document completed by the clinician Integumentary (Hair/Skin/Nails): Open Sore Musculoskeletal: Deformities Neurological: Loss of Protective Sensation Prior Wound History: Drainage, Erythema, Malodor Patient denies complaints or symptoms related to: Cardiovascular (Central): Dyspnea on Exertion, Irregular heart beat Constitutional Symptoms (General Health): Chills, Fever, Loss of Appetite Gastrointestinal (GI): Nausea / Vomiting, Stomach/abdominal pain Hematologic/Lymphatic: Bleeding / Clotting Disorders, Bleeding Tendency Musculoskeletal: Assistive Devices Psychiatric: Memory Loss Respiratory: Oxygen Use OBJECTIVE Constitutional Vital signs reviewed and noted. Well developed. Alert. Clean appearing.. Height/ Length: 74 in (187.96 cm), Weight: 285 lbs (129.55 kgs), BMI: 36.6, Temperature: 98.5 ?F ( 36.94 ?C), Pulse: 71 bpm, Respiratory Rate: 18 breaths/min, Blood Pressure: 131/81 mmHg, Pulse Oximetry: 99 %. Ears, Nose, Mouth, and Throat: No clinically significant hearing loss on informal examination. Integumentary (Hair, Skin) Mild periwound erythema with warmth. Refer to appropriate clinician wound documentation for this visit; right foot ulcer extends to subcut with base partially covered with pink granulation, remainder fibrin and slough. Wound #6 Left Third Toe is an acute Partial Thickness Neuropathic Ulcer and has received a status of Not Healed. Subsequent wound encounter measurements are 0.6cm length x 0.6cm width x 0.1cm depth, with an area of 0.36 sq cm and a volume of 0.036 cubic cm. Hypergranulation was noted. No tunneling has been noted. No sinus tract has been noted. Undermining has been noted at 10:00 and ends at 3:00 with a maximum distance of 0.3cm. There is a small amount of serous drainage noted which has no odor. The patient reports no wound pain due to the wound being insensate. The wound margin is callus. Wound bed has No epithelialization, No eschar, Yes slough, Yes pink, spongy granulation. The periwound skin moisture is normal. The periwound skin exhibited: Callus, Friable, Erythema. The periwound skin did not exhibit: Brawny Induration, Edema, Excoriation, Induration, Crepitus, Fluctuance, Rash. The temperature of the periwound skin is WNL. Periwound skin presents with s/s of infection. Confirmation Description and Treatment Plan is: Confirmed Local, Systemic Antibiotics Prescribed. Local Pulse is Palpable. Wound #7 Left, Proximal Third Toe is an acute Partial Thickness Neuropathic Ulcer and has received a status of Not Healed. Subsequent wound encounter measurements are 0.5cm length x 1.4cm width x 0.1cm depth, with an area of 0.7 sq cm and a volume of 0.07 cubic cm. No tunneling has been noted. No sinus tract has been noted. No undermining has been noted. There is a moderate amount of serosanguineous drainage noted which has no odor. The patient reports a wound pain of level 0/10. The wound margin is attached. Wound bed has Yes epithelialization, No eschar, Yes slough, Yes pink, firm granulation. The periwound skin texture is normal. The periwound skin moisture is normal. The periwound skin exhibited: Erythema. The temperature of the periwound skin is WNL. Periwound skin presents with s/s of infection. Confirmation Description and Treatment Plan is: Signs and Symptoms Present, Confirmed Local, Systemic Antibiotics Prescribed. Local Pulse is Palpable. Neurological: Cranial nerves grossly intact with symmetric function normal by informal observation.. ASSESSMENT Active Problems ICD-10 (Encounter Diagnosis) L97.522 - Non-pressure chronic ulcer of other part of left foot with fat layer exposed (Encounter Diagnosis) L97.521 - Non-pressure chronic ulcer of other part of left foot limited to breakdown of skin (Encounter Diagnosis) L03.116 - Cellulitis of left lower limb PROCEDURES Wound #6 Wound #6 (Neuropathic Ulcer) is located on the left third toe. A skin/ subcutaneous tissue level surgical debridement with a total area debrided of 0.36 sq cm was performed by Gustavo Mendoza MD. Subcutaneous was removed along with devitalized tissue: callus and slough. The following instrument(s) were used: curette. Pain control was achieved using 4% Lido. A time out was conducted prior to the start of the procedure. A minimal amount of bleeding was controlled with n/a. The procedure was tolerated well with a pain level of 0 throughout and a pain level of 0 following the procedure. Post Debridement Measurements: 0.6cm length x 0.6cm width x 0.2cm depth; with an area of 0.36 sq cm and a volume of 0.072 cubic cm; Additional Information Muscle fascia or bone removed and sent to pathology?: No PLAN Wound Orders: Wound #6 Left Third Toe Anesthetic Topical Xylocaine to wound bed. - In clinic Cleanser Cleanse Wound: - Normal Saline May Shower. - Please avoid getting tap water in wound or on dressings. Cover while in the shower Topical Treatments Antibiotic/Antimicrobial Ointment/Cream. - Iodosorb Dressings Primary dressing: - Foam Cover and secure with: - Tape Change Dressing: - Daily Off-Loading Keep weight off: - Left foot as much as possible Wound #7 Left, Proximal Third Toe Anesthetic Topical Xylocaine to wound bed. - In clinic Cleanser Cleanse Wound: - Normal Saline May Shower. - Please avoid getting tap water in wound or on dressings. Cover while in the shower Dressings Primary dressing: - Foam Cover and secure with: - Tape Change Dressing: - Daily Off-Loading Keep weight off: - Left foot as much as possible Additional Orders: Follow-Up Appointments Return Appointment: - - One week Other information: If you develop fever, chills, increased pain, drainage, redness or swelling please call our office. If after hours, respond to the ER. Should you experience any significant changes in your wound(s) or have any questions regarding your home care instructions please contact the wound center @ [phone]. If after hours, contact your primary care physician or go to the hospital emergency room. Scribing Attestation I attest, as the nurse, that I scribed these orders for the physician. 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 I've reviewed the clinician's documentation and agree with the evaluation and plan as written. In addition, the patient's ulcer demonstrates evidence of non-viable devitalized tissue which will continue to benefit from sharp debridement to help promote granulation and expedite healing. Also, the patient will continue on another week of doxycycline for cellulitis of the left 3rd toe. Electronic Signature(s) Signed By: Date: Gustavo Mendoza MD 10/18/2017 06:50:35 Entered By: Gustavo Mendoza on 10/18/2017 06:40:53
== END ==
PROVIDERS: PCP Family Medicine; Visit Provider Internal Medicine
DX: G90.9 Disorder of the autonomic nervous system, unspecified (principal); L97.522 Non-pressure chronic ulcer of other part of left foot with fat layer exposed; L03.116 Cellulitis of left lower limb
CPT/HCPCS: 11042

== ENCOUNTER → 2017-10-24 09:17 | Outpatient (CLI) | payer OTHER, SELFPAY | PROVIDERS: PCP Family Medicine; Visit Provider Internal Medicine | DX: G90.9 Disorder of the autonomic nervous system, unspecified (principal); L97.522 Non-pressure chronic ulcer of other part of left foot with fat layer exposed; L03.116 Cellulitis of left lower limb | CPT/HCPCS: 11042 ==

== ENCOUNTER → 2017-11-01 09:08 | Outpatient (CLI) | payer OTHER, SELFPAY | PROVIDERS: PCP Family Medicine; Visit Provider Internal Medicine | DX: G90.9 Disorder of the autonomic nervous system, unspecified (principal); L97.522 Non-pressure chronic ulcer of other part of left foot with fat layer exposed; R21 Rash and other nonspecific skin eruption; L03.032 Cellulitis of left toe | CPT/HCPCS: 11042 ==

== ENCOUNTER → 2017-11-07 11:06 | Outpatient (CLI) | payer OTHER, SELFPAY | PROVIDERS: PCP Family Medicine; Visit Provider Internal Medicine | DX: G90.9 Disorder of the autonomic nervous system, unspecified (principal); L03.116 Cellulitis of left lower limb; L97.522 Non-pressure chronic ulcer of other part of left foot with fat layer exposed; B36.9 Superficial mycosis, unspecified | CPT/HCPCS: 11042; 87070; 87075; 87077; 87147; 87186; 87205 ==

== ENCOUNTER → 2017-11-16 14:56 | Outpatient (CLI) | payer OTHER, SELFPAY ==
--- NOTE | 2017-11-16 | OV.WND_ITS ---
Progress Note Details Patient Name: Gustavo Worley Patient Number: [id number] PatientPatientDate: 11/16/2017 Clinician: Meenu Ng Physician / Jumbo Operator: Gustavo Mendoza SUBJECTIVE Chief Complaint This information was obtained from the patient Neuropathic ulcers to left 3rd toe. Allergies NKDA HPI This information was obtained from the patient 11/16/17. Seen by Dr. Mendoza. The patient continues to report redness and swelling of the left 3rd toe but does not report increased drainage associated with distal left 3rd toe neuropathic non-pressure ulcer. He's has a severe and chronic fungal rash over the entire plantar surface of the foot also which has not responded to topical miconazole. 11/07/17. Seen by Dr. Mendoza. The patient continues to report redness and swelling of the left 3rd toe but does not report increased drainage associated with distal left 3rd toe neuropathic non-pressure ulcer. He also on doxycycline and does not feel this has been effective as it has in the past. He's also applying topical miconazole to the plantar surface of the foot to treat a chronic fungal infection. 11/01/17. Seen by Dr. Mendoza. The patient reports some increased redness and swelling of the left 3rd toe but does not report increased drainage associated with distal left 3rd toe neuropathic non-pressure ulcer. He's now off of antibiotics that had been prescribed recently for cellulitis of the toe. The nurse also reports a fungal appearing rash over the plantar surface of the left foot the a crack at the medial aspect. 10/24/17. Seen by Dr. Mendoza. 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 10/17/17. Seen by Dr. Mendoza. 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 10/10/17. Seen by Dr. Mendoza. The patient called today concerned about redness and the appearance of the left 3rd toe which we've been treating for a chronic distal toe neuropathic ulcer. He does not report pain in the toe or increased drainage from the ulcer nor a more proximal trauma wound thought to be due to shear from the toe life he's been wearing recently. 10/05/17. 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 09/28/17. Seen by Dr. Mendoza. The patient underwent amputation of the right 3rd toe earlier this week due to refractory osteomyelitis and a non-healing neuropathic ulcer and does not report any complications. 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 09/21/17. Seen by Dr. Mendoza. 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 He's scheduled for amputation of the right 3rd toe due to refractory osteomyelitis with Dr. Pastrana next week. 09/13/17. Seen by Dr. Mendoza. 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 He was seen by Dr. Pastrana who's recommending amputation of the right 3rd toe due to recurrent and refractory osteomyelitis which is complicated by a non-healing distal ulcer. 09/08/17. Seen by Dr. Mendoza. 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 He has an appointment with podiatry this afternoon to review the right 3rd toe ulcer which has been a recurrent problem while the toe's been treated for acute osteomyelitis. My concern is that the osteomyelitis may not have resolved and he may require bone debridement to allow the ulcer to eventually completely heal. 08/31/17. Seen by Dr. Mendoza. 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 He's also been contacted by podiatry to schedule an appointment to review possible chronic osteomyelitis of the right 3rd toe distal phalanx but he's not yet called them back to schedule a date. 08/24/17. Seen by Dr. Mendoza. 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 Of note, he was pressure washing a boat yesterday and feels the ulcers may have gotten wet. He also completed an extended course of antibiotics recently that was treating acute osteomyelitis of the distal right 3rd toe and as of last week the overlying ulcer appeared to be nearly healed. 08/17/17. Seen by Dr. Mendoza. The patient's wound culture from the last visit grew MSSA, a resistant coag negative Staph, and a Sphingomonas species. He's now on clindamycin and does not report significant drainage associated with the right and left 3rd toe non-pressure ulcers. 08/10/17. Seen by Dr. Mendoza. 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 He's also completed his course of doxycycline for a total of 6 weeks of antibiotics which was prescribed for acute osteomyelitis of the distal right 3rd toe. He does not report pain in this toe as he had previously nor adverse side effects of the antibiotics. He typically keeps his feet covered when in the shower but notes last night he did not as he felt he needed to wash his feet. 08/03/17. Seen by Ryan Dacosta PA-C. The patient reports stable drainage from his right 3rd toe ulcer. He continues on doxycycline to treat the osteomyelitis underlying the ulcer. The patient also reports a new ulcer on his left foot which began spontaneously, and has been continually present for the past 4 days. The new ulcer has had clear drainage and no associated erythema. 07/27/17. Seen by Dr. Mendoza. The patient continues on doxycycline for osteomyelitis of the right 3rd toe without reporting adverse side effects and staff feel the associated right 3rd toe neuropathic ulcer continues to improve over the past week. Of note, the patient injured his back and has been off of work for a few days which has contributed to offloading the ulcer. 07/20/17. Seen by Dr. Mendoza. The patient continues on doxycycline for osteomyelitis of the right 3rd toe without reporting adverse side effects and staff feel the associated right 3rd toe neuropathic ulcer has improved considerably over the past week. 07/13/17. Seen by Dr. Mendoza. The patient continues on doxycycline for osteomyelitis of the right 3rd toe without reporting adverse side effects. He also states he's been quite active working and feels he's not been offloading the toe as much as he should. 07/05/17. Seen Dr. Mendoza. The patient continues on doxycycline for osteomyelitis of the right 3rd toe that was seen on his MRI 2 weeks ago. He does not report significant drainage or pain at the site and he has taken the last week off of work and improved his offloading of the toe. 06/27/17. Seen by Dr. Mendoza. The patient's now on doxycycline for osteomyelitis of the right 3rd toe that was seen on his MRI last week. He does not report significant drainage or pain at the site and he continues to work a regular schedule as a longer which has made it very difficult to offload the ulcer adequately. 06/20/17. Seen by Dr. Mendoza. 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 06/12/17. Seen by Dr. Mendoza. 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 His MRI to evaluate for underlying osteomyelitis has not yet been approved any continues on oral antibiotics to treat the MSSA positive wound culture noting we were able to probe to bone at his last visit. 06/06/17. Seen by Dr. Mendoza. The patient reports recurrence of pain associated with the chronic right third toe neuropathic ulcer over the past week. 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 He notes a new ulcer beneath the left first toe that is similar to the one beneath the right first toe noted on last exam. 05/31/17. Seen by Dr. Mendoza. Staff report a persistence of the recently documented neuropathic ulcer under the base of the right first toe that originally appeared as a cracked callus. 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 05/24/17. Seen by Dr. Mendoza. The patient does not report seeing strange associated with chronic right third toe neuropathic ulcer since his last visit however he reports a new ulcer over the dorsum of the right first toe. 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 05/15/17. Seen by Dr. Mendoza. The patient has been off antibiotics since last Monday and is not report significant drainage, swelling, or pain associated with the chronic right third toe neuropathic ulcer since his last visit. He is offloading as recommended using lambswool to lift the toe noting the significant plantarflexion deformity and has purchased a larger shoe to help prevent callus formation. 05/02/17. Seen by Dr. Mendoza. The patient does not report increased drainage or pain associated with the chronic right third to neuropathic ulcers since his last visit. He will complete his course of doxycycline today and does not report other side effects. He is attempting to offload the toe by using a rolled foam dressing every notes that his shoes also may be too small and preventing optimal offloading of the ulcer. He did have an x-ray that did not confirm osteomyelitis. 05/03/17. Seen by Dr. Mendoza. 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 He was not able to find a toe lift to purchase as recommended to help offload the plantar flexed distal toe but has remained off work and minimized walking as recommended. 04/26/17. Seen by Dr. Mendoza. 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 His CT evaluating for osteomyelitis was not approved by insurance due to an xray not being performed prior. In general he feels his toe is improving although swelling and erythema persist. 04/19/17. Seen by Dr. Mendoza. 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 He does not report adverse side effects, fevers, or feeling unwell in general. 04/14/17. Seen by Ryan Dacosta PA-C. This patient is new to our clinic and was sent urgently from Dr. Mcgee on [facility] for evaluation of his right 3rd toe. The ulcer began spontaneously 1 week ago and in the past few days has become red and warm. His PCP took a swab culture and placed him empirically on Keflex. The patient is insensate at the ulcer site but has not been diagnosed with diabetes, though it has been noted that his A1c and random sugars have been slightly elevated at recent PCP appointments. 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 He also has an ulcer under his right great toe which he states has been present and stable for several weeks. Past Medical History This information was obtained from the patient Patient has a medical history of: Hyperlipidemia Gout Hypertension Osteoarthritis Complaints and Symptoms This information was obtained from the patient Patient complains of: General Notes: I have reviewed and concur with the Review of Systems and Past Family Social History documents completed by the clinician, I have reviewed and concur with the Wound Assessment document completed by the clinician Allergic/Immunologic: Frequent Rashes Integumentary (Hair/Skin/Nails): Open Sore Musculoskeletal: Deformities Neurological: Loss of Protective Sensation Prior Wound History: Drainage, Erythema, Malodor Patient denies complaints or symptoms related to: Cardiovascular (Central): Dyspnea on Exertion, Irregular heart beat Constitutional Symptoms (General Health): Chills, Fever, Loss of Appetite Gastrointestinal (GI): Nausea / Vomiting, Stomach/abdominal pain Hematologic/Lymphatic: Bleeding / Clotting Disorders, Bleeding Tendency Musculoskeletal: Assistive Devices Psychiatric: Memory Loss Respiratory: Oxygen Use OBJECTIVE Constitutional BP elevated; Afebrile; Alert and in no distress. Well developed. Alert. Clean appearing.. Height/Length: 74 in (187.96 cm), Weight: 283.1 lbs (128.68 kgs), BMI: 36.3, Temperature: 97.4 ?F (36.33 ?C), Pulse: 80 bpm, Respiratory Rate: 18 breaths/min, Blood Pressure: 148/84 mmHg, Pulse Oximetry: 98 %. Ears, Nose, Mouth, and Throat: No clinically significant hearing loss on informal examination. Respiratory: No respiratory distress. Even respirations and without use of accessory muscles.. Cardiovascular: 1+ left lower extremity edema. Gastrointestinal (GI): Obese. Nondistended.. Musculoskeletal: Significant plantar flexion of left 3rd toe. Integumentary (Hair, Skin) Moderate periwound erythema without warmth over dorsum of left 2nd and 3rd toes extending to mid foot. Refer to appropriate clinician wound documentation for this visit; left 3rd toe ulcer extends to subcut with base partially covered with pink granulation, remainder fibrin and slough. Moderate amount of callus in the periulcer area. Wound #6 Left Third Toe is an acute Full Thickness Neuropathic Ulcer and has received a status of Not Healed. Subsequent wound encounter measurements are 0.6cm length x 0.9cm width x 0.2cm depth, with an area of 0.54 sq cm and a volume of 0.108 cubic cm. Hypergranulation was noted. No tunneling has been noted. No sinus tract has been noted. No undermining has been noted. There is a large amount of serous drainage noted which has a mild odor. The patient reports no wound pain due to the wound being insensate. The wound margin is callus. Wound bed has No epithelialization, No eschar, Yes slough, Yes pink, spongy granulation. The periwound skin exhibited: Callus, Friable, Moist, Erythema. The periwound skin did not exhibit: Brawny Induration, Edema, Excoriation, Induration, Crepitus, Fluctuance , Rash, Atrophie Meghann, Cyanosis, Ecchymosis, Hemosiderosis, Pallor, Rubor. The temperature of the periwound skin is WNL. Periwound skin does not exhibit signs or symptoms of infection. Local Pulse is Palpable. ASSESSMENT Active Problems ICD-10 (Encounter Diagnosis) L97.522 - Non-pressure chronic ulcer of other part of left foot with fat layer exposed (Encounter Diagnosis) R21 - Rash and other nonspecific skin eruption PROCEDURES Wound #6 Wound #6 (Neuropathic Ulcer) is located on the left third toe. A skin/ subcutaneous tissue level surgical debridement with a total area debrided of 0.54 sq cm was performed by Gustavo Mendoza MD. Subcutaneous was removed along with devitalized tissue: callus and slough. The following instrument(s) were used: curette. No anesthetic was required due to loss of sensation. A time out was conducted prior to the start of the procedure. A minimal amount of bleeding was controlled with n/a. The procedure was tolerated well with a pain level of 0 throughout and a pain level of 0 following the procedure. Post Debridement Measurements: 0.6cm length x 0.9cm width x 0.3cm depth; with an area of 0.54 sq cm and a volume of 0.162 cubic cm; Additional Information Muscle fascia or bone removed and sent to pathology?: No PLAN Wound Orders: Wound #6 Left Third Toe Anesthetic Topical Xylocaine to wound bed. - In clinic only. Cleanser Cleanse Wound: - Normal Saline and gauze, may use distilled water at home. May Shower. - Please avoid getting tap water in wound or on dressings. Cover while in the shower. Topical Treatments Antibiotic/Antimicrobial Ointment/Cream. - Gentamicin ointment Dressings Primary dressing: - Interdry between toes. Cover and secure with: - Foam and hypafix tape. Change Dressing: - Daily. Additional Orders: Off-Loading Keep weight off: - Left foot as much as possible. Follow-Up Appointments Return Appointment: - - One week. Other information: If you develop fever, chills, increased pain, drainage, redness or swelling please call our office. If after hours, respond to the ER. Should you experience any significant changes in your wound(s) or have any questions regarding your home care instructions please contact the wound center @ [phone]. If after hours, contact your primary care physician or go to the hospital emergency room. Scribing Attestation I attest, as the nurse, that I scribed these orders for the physician. General Notes: Please product picker medications from pharmacy and take as prescribed. I've reviewed the clinician's documentation and agree with the evaluation and plan as written. In addition, the patient's ulcer demonstrates evidence of non-viable devitalized tissue which will continue to benefit from sharp debridement to help promote granulation and expedite healing. Also, I've also started the patient on a short course of fluconazole to treat the progressive left foot fungal rash that's contributing to drainage and edema of the distal foot and complicating the ulcer healing. Electronic Signature(s) Signed By: Date: Gustavo Mendoza MD 11/17/2017 09:38:07 Entered By: Gustavo Mendoza on 11/17/2017 06:41:39
== END ==
PROVIDERS: PCP Family Medicine; Visit Provider Internal Medicine
DX: G90.9 Disorder of the autonomic nervous system, unspecified (principal); L97.522 Non-pressure chronic ulcer of other part of left foot with fat layer exposed; R21 Rash and other nonspecific skin eruption
CPT/HCPCS: 11042

== ENCOUNTER → 2017-11-21 08:42 | Outpatient (CLI) | payer OTHER, SELFPAY ==
--- NOTE | 2017-11-21 | OV.WND_ITS ---
Progress Note Details Patient Name: Gustavo Worley Patient Number: [id number] PatientPatientDate: 11/21/2017 Clinician: Lian Linn Physician / Veterinary Technician Assistant: Gustavo Mendoza SUBJECTIVE Chief Complaint This information was obtained from the patient Neuropathic ulcers to left 3rd toe. Allergies NKDA HPI This information was obtained from the patient 11/21/17. Seen by Dr. Mendoza. The patient feels the left 3rd toe and distal foot swelling and erythema have improved since completing a 5 days course of fluconazole. Of note , there was no improvement when treating with antibiotics previously. He does not report drainage or pain associated with the associated distal toe non-pressure ulcer and states he's planning on going hunting for two weeks and will have limited access to healthcare over that period. 11/16/17. Seen by Dr. Mendoza. The patient continues to report redness and swelling of the left 3rd toe but does not report increased drainage associated with distal left 3rd toe neuropathic non-pressure ulcer. He's has a severe and chronic fungal rash over the entire plantar surface of the foot also which has not responded to topical miconazole. 11/07/17. Seen by Dr. Mendoza. The patient continues to report redness and swelling of the left 3rd toe but does not report increased drainage associated with distal left 3rd toe neuropathic non-pressure ulcer. He also on doxycycline and does not feel this has been effective as it has in the past. He's also applying topical miconazole to the plantar surface of the foot to treat a chronic fungal infection. 11/01/17. Seen by Dr. Mendoza. The patient reports some increased redness and swelling of the left 3rd toe but does not report increased drainage associated with distal left 3rd toe neuropathic non-pressure ulcer. He's now off of antibiotics that had been prescribed recently for cellulitis of the toe. The nurse also reports a fungal appearing rash over the plantar surface of the left foot the a crack at the medial aspect. 10/24/17. Seen by Dr. Mendoza. 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 10/17/17. Seen by Dr. Mendoza. 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 10/10/17. Seen by Dr. Mendoza. The patient called today concerned about redness and the appearance of the left 3rd toe which we've been treating for a chronic distal toe neuropathic ulcer. He does not report pain in the toe or increased drainage from the ulcer nor a more proximal trauma wound thought to be due to shear from the toe life he's been wearing recently. 10/05/17. 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 09/28/17. Seen by Dr. Mendoza. The patient underwent amputation of the right 3rd toe earlier this week due to refractory osteomyelitis and a non-healing neuropathic ulcer and does not report any complications. 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 09/21/17. Seen by Dr. Mendoza. 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 He's scheduled for amputation of the right 3rd toe due to refractory osteomyelitis with Dr. Pastrana next week. 09/13/17. Seen by Dr. Mendoza. 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 He was seen by Dr. Pastrana who's recommending amputation of the right 3rd toe due to recurrent and refractory osteomyelitis which is complicated by a non-healing distal ulcer. 09/08/17. Seen by Dr. Mendoza. 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 He has an appointment with podiatry this afternoon to review the right 3rd toe ulcer which has been a recurrent problem while the toe's been treated for acute osteomyelitis. My concern is that the osteomyelitis may not have resolved and he may require bone debridement to allow the ulcer to eventually completely heal. 08/31/17. Seen by Dr. Mendoza. 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 He's also been contacted by podiatry to schedule an appointment to review possible chronic osteomyelitis of the right 3rd toe distal phalanx but he's not yet called them back to schedule a date. 08/24/17. Seen by Dr. Mendoza. 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 Of note, he was pressure washing a boat yesterday and feels the ulcers may have gotten wet. He also completed an extended course of antibiotics recently that was treating acute osteomyelitis of the distal right 3rd toe and as of last week the overlying ulcer appeared to be nearly healed. 08/17/17. Seen by Dr. Mendoza. The patient's wound culture from the last visit grew MSSA, a resistant coag negative Staph, and a Sphingomonas species. He's now on clindamycin and does not report significant drainage associated with the right and left 3rd toe non-pressure ulcers. 08/10/17. Seen by Dr. Mendoza. 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 He's also completed his course of doxycycline for a total of 6 weeks of antibiotics which was prescribed for acute osteomyelitis of the distal right 3rd toe. He does not report pain in this toe as he had previously nor adverse side effects of the antibiotics. He typically keeps his feet covered when in the shower but notes last night he did not as he felt he needed to wash his feet. 08/03/17. Seen by Ryan Dacosta PA-C. The patient reports stable drainage from his right 3rd toe ulcer. He continues on doxycycline to treat the osteomyelitis underlying the ulcer. The patient also reports a new ulcer on his left foot which began spontaneously, and has been continually present for the past 4 days. The new ulcer has had clear drainage and no associated erythema. 07/27/17. Seen by Dr. Mendoza. The patient continues on doxycycline for osteomyelitis of the right 3rd toe without reporting adverse side effects and staff feel the associated right 3rd toe neuropathic ulcer continues to improve over the past week. Of note, the patient injured his back and has been off of work for a few days which has contributed to offloading the ulcer. 07/20/17. Seen by Dr. Mendoza. The patient continues on doxycycline for osteomyelitis of the right 3rd toe without reporting adverse side effects and staff feel the associated right 3rd toe neuropathic ulcer has improved considerably over the past week. 07/13/17. Seen by Dr. Mendoza. The patient continues on doxycycline for osteomyelitis of the right 3rd toe without reporting adverse side effects. He also states he's been quite active working and feels he's not been offloading the toe as much as he should. 07/05/17. Seen Dr. Mendoza. The patient continues on doxycycline for osteomyelitis of the right 3rd toe that was seen on his MRI 2 weeks ago. He does not report significant drainage or pain at the site and he has taken the last week off of work and improved his offloading of the toe. 06/27/17. Seen by Dr. Mendoza. The patient's now on doxycycline for osteomyelitis of the right 3rd toe that was seen on his MRI last week. He does not report significant drainage or pain at the site and he continues to work a regular schedule as a longer which has made it very difficult to offload the ulcer adequately. 06/20/17. Seen by Dr. Mendoza. 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 06/12/17. Seen by Dr. Mendoza. 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 His MRI to evaluate for underlying osteomyelitis has not yet been approved any continues on oral antibiotics to treat the MSSA positive wound culture noting we were able to probe to bone at his last visit. 06/06/17. Seen by Dr. Mendoza. The patient reports recurrence of pain associated with the chronic right third toe neuropathic ulcer over the past week. 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 He also continues his work as a staff electrical engineer. He notes a new ulcer beneath the left first toe that is similar to the one beneath the right first toe noted on last exam. 05/31/17. Seen by Dr. Mendoza. Staff report a persistence of the recently documented neuropathic ulcer under the base of the right first toe that originally appeared as a cracked callus. 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 05/24/17. Seen by Dr. Mendoza. The patient does not report seeing strange associated with chronic right third toe neuropathic ulcer since his last visit however he reports a new ulcer over the dorsum of the right first toe. 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 05/15/17. Seen by Dr. Mendoza. The patient has been off antibiotics since last Monday and is not report significant drainage, swelling, or pain associated with the chronic right third toe neuropathic ulcer since his last visit. He is offloading as recommended using lambswool to lift the toe noting the significant plantarflexion deformity and has purchased a larger shoe to help prevent callus formation. 05/02/17. Seen by Dr. Mendoza. The patient does not report increased drainage or pain associated with the chronic right third to neuropathic ulcers since his last visit. He will complete his course of doxycycline today and does not report other side effects. He is attempting to offload the toe by using a rolled foam dressing every notes that his shoes also may be too small and preventing optimal offloading of the ulcer. He did have an x-ray that did not confirm osteomyelitis. 05/03/17. Seen by Dr. Mendoza. 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 He was not able to find a toe lift to purchase as recommended to help offload the plantar flexed distal toe but has remained off work and minimized walking as recommended. 04/26/17. Seen by Dr. Mendoza. 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 His CT evaluating for osteomyelitis was not approved by insurance due to an xray not being performed prior. In general he feels his toe is improving although swelling and erythema persist. 04/19/17. Seen by Dr. Mendoza. 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 He does not report adverse side effects, fevers, or feeling unwell in general. 04/14/17. Seen by Ryan Dacosta PA-C. This patient is new to our clinic and was sent urgently from Dr. Mcgee on [facility] for evaluation of his right 3rd toe. The ulcer began spontaneously 1 week ago and in the past few days has become red and warm. His PCP took a swab culture and placed him empirically on Keflex. The patient is insensate at the ulcer site but has not been diagnosed with diabetes, though it has been noted that his A1c and random sugars have been slightly elevated at recent PCP appointments. 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 He also has an ulcer under his right great toe which he states has been present and stable for several weeks. Past Medical History This information was obtained from the patient Patient has a medical history of: Hyperlipidemia Gout Hypertension Osteoarthritis Complaints and Symptoms This information was obtained from the patient Patient complains of: General Notes: I have reviewed and concur with the Review of Systems and Past Family Social History documents completed by the clinician, I have reviewed and concur with the Wound Assessment document completed by the clinician Allergic/Immunologic: Frequent Rashes Integumentary (Hair/Skin/Nails): Open Sore Musculoskeletal: Deformities Neurological: Loss of Protective Sensation Prior Wound History: Drainage, Erythema, Malodor Patient denies complaints or symptoms related to: Cardiovascular (Central): Dyspnea on Exertion, Irregular heart beat Constitutional Symptoms (General Health): Chills, Fever, Loss of Appetite Gastrointestinal (GI): Nausea / Vomiting, Stomach/abdominal pain Hematologic/Lymphatic: Bleeding / Clotting Disorders, Bleeding Tendency Musculoskeletal: Assistive Devices Psychiatric: Memory Loss Respiratory: Oxygen Use OBJECTIVE Constitutional BP elevated; Afebrile; Alert and in no distress. Well developed. Alert. Clean appearing.. Height/Length: 74 in (187.96 cm), Weight: 283.1 lbs (128.68 kgs), BMI: 36.3, Temperature: 97.4 ?F (36.33 ?C), Pulse: 75 bpm, Respiratory Rate: 18 breaths/min, Blood Pressure: 143/85 mmHg, Pulse Oximetry: 97 %. Ears, Nose, Mouth, and Throat: No clinically significant hearing loss on informal examination. Respiratory: No respiratory distress. Even respirations and without use of accessory muscles.. Cardiovascular: Affected extremity exhibits no peripheral edema or cyanosis, is warm, and is well perfused. Capillary refill is less than 2 seconds. Gastrointestinal (GI): Obese. Nondistended.. Integumentary (Hair, Skin) Mild periwound erythema without warmth; much improved. Refer to appropriate clinician wound documentation for this visit; left 3rd toe ulcer extends to subcut with base partially covered with pink granulation, remainder fibrin and slough. Wound #6 Left Third Toe is an acute Full Thickness Neuropathic Ulcer and has received a status of Not Healed. Subsequent wound encounter measurements are 0.7cm length x 0.9cm width x 0.3cm depth, with an area of 0.63 sq cm and a volume of 0.189 cubic cm. Hypergranulation was noted. No tunneling has been noted. No sinus tract has been noted. No undermining has been noted. There is a moderate amount of serous drainage noted which has a mild odor. The patient reports no wound pain due to the wound being insensate. The wound margin is callus. Wound bed has No epithelialization, No eschar, Yes slough, Yes pink, spongy granulation. The periwound skin exhibited: Callus, Moist, Erythema. The periwound skin did not exhibit: Brawny Induration, Edema, Excoriation, Induration, Crepitus, Fluctuance, Friable , Rash, Dry/Scaly, Maceration, Atrophie Meghann, Cyanosis, Ecchymosis, Hemosiderosis, Pallor, Rubor. The temperature of the periwound skin is WNL. Periwound skin does not exhibit signs or symptoms of infection. Local Pulse is Palpable. Neurological: Cranial nerves grossly intact with symmetric function normal by informal observation.. ASSESSMENT Active Problems ICD-10 (Encounter Diagnosis) L97.522 - Non-pressure chronic ulcer of other part of left foot with fat layer exposed (Encounter Diagnosis) L03.116 - Cellulitis of left lower limb PROCEDURES Wound #6 Wound #6 (Neuropathic Ulcer) is located on the left third toe. A skin/ subcutaneous tissue level surgical debridement with a total area debrided of 0.72 sq cm was performed by Gustavo Mendoza MD. Subcutaneous was removed along with devitalized tissue: callus and exudate. The following instrument(s) were used: curette. No anesthetic was required due to loss of sensation. A time out was conducted prior to the start of the procedure. A moderate amount of bleeding was controlled with silver nitrate. The procedure was tolerated well with a loss of sensation throughout and a loss of sensation following the procedure. Post Debridement Measurements: 0.8cm length x 0.9cm width x 0.3cm depth; with an area of 0.72 sq cm and a volume of 0.216 cubic cm; Additional Information Muscle fascia or bone removed and sent to pathology?: No PLAN Wound Orders: Wound #6 Left Third Toe Anesthetic Topical Xylocaine to wound bed. - In clinic only. Cleanser Cleanse Wound: - Normal Saline and gauze, may use distilled water at home. May Shower. - Please avoid getting tap water in wound or on dressings. Cover while in the shower. Topical Treatments Antibiotic/Antimicrobial Ointment/Cream. - Iodosorb. Dressings Primary dressing: - Interdry between toes. Cover and secure with: - Foam and hypafix tape. Change Dressing: - Daily. Additional Orders: Off-Loading Keep weight off: - Left foot as much as possible. Follow-Up Appointments Return Appointment: - - One week. Other information: If you develop fever, chills, increased pain, drainage, redness or swelling please call our office. If after hours, respond to the ER. Should you experience any significant changes in your wound(s) or have any questions regarding your home care instructions please contact the wound center @ [phone]. If after hours, contact your primary care physician or go to the hospital emergency room. Scribing Attestation I attest, as the nurse, that I scribed these orders for the physician. Medications prescribed: fluconazole - oral 100 mg tablet once daily for 7 days for cellulitis starting 11/21/2017 Bactrim DS - oral 800 mg-160 mg tablet once daily for 5 days for cellulits starting 11/21/2017 General Notes: Please waste picker refill for fluconazole. I've reviewed the clinician's documentation and agree with the evaluation and plan as written. In addition, the patient's ulcer demonstrates evidence of non-viable devitalized tissue which will continue to benefit from sharp debridement to help promote granulation and expedite healing. Also, I've continued the patient on another 7 days of fluconazole as this was quite effective and also given him a prescription for Bactrim should his toe appear to be deteriorating while he's on his hunting trip. If this occurs he's been advised to seek medical attention at immediately. Electronic Signature(s) Signed By: Date: Gustavo Mendoza MD 11/22/2017 06:59:08 Entered By: Gustavo Mendoza on 11/22/2017 06:46:26
== END ==
PROVIDERS: PCP Family Medicine; Visit Provider Internal Medicine
DX: L97.522 Non-pressure chronic ulcer of other part of left foot with fat layer exposed (principal); L03.116 Cellulitis of left lower limb
CPT/HCPCS: 11042

== ENCOUNTER → 2017-12-05 13:15 | Outpatient (CLI) | payer OTHER, SELFPAY | PROVIDERS: PCP Family Medicine; Visit Provider Internal Medicine | DX: B37.9 Candidiasis, unspecified (principal); G90.9 Disorder of the autonomic nervous system, unspecified; L97.522 Non-pressure chronic ulcer of other part of left foot with fat layer exposed | CPT/HCPCS: 11042 ==

== ENCOUNTER → 2017-12-12 09:06 | Outpatient (CLI) | payer OTHER, SELFPAY ==
--- NOTE | 2017-12-12 | OV.WND_ITS ---
Progress Note Details Patient Name: Gustavo Worley Patient Number: [id number] PatientPatientDate: 12/12/2017 Clinician: Ade Raphael Clinician Cosigner: Huong Harp Physician / Immersion Metalcleaner: Gustavo Mendoza SUBJECTIVE Chief Complaint This information was obtained from the patient Neuropathic ulcers to left 3rd toe. Allergies NKDA HPI This information was obtained from the patient 12/12/17. Seen by Dr. Mendoza. The patient feels the left foot redness and swelling has improved considerably since starting on fluconazole a week ago for a recurrent and severe fungal appearing rash. He also reports less drainage from the distal left 2nd toe non-pressure ulcer. 12/05/17. Seen by Dr. Mendoza. The patient continues to report redness and swelling of the left 3rd toe but does not report increased drainage associated with distal left 3rd toe neuropathic non-pressure ulcer. He's has a recurrent and chronic fungal rash over the entire plantar surface of the foot extending medially over he dorsum also which has responded to oral fluconazole recently. He started taking Augmentin for redness of the distal foot while on his recent hunting trip but states this does not seem to have been effective. 11/21/17. Seen by Dr. Mendoza. The patient feels the left 3rd toe and distal foot swelling and erythema have improved since completing a 5 days course of fluconazole. Of note , there was no improvement when treating with antibiotics previously. He does not report drainage or pain associated with the associated distal toe non-pressure ulcer and states he's planning on going hunting for two weeks and will have limited access to healthcare over that period. 11/16/17. Seen by Dr. Mendoza. The patient continues to report redness and swelling of the left 3rd toe but does not report increased drainage associated with distal left 3rd toe neuropathic non-pressure ulcer. He's has a severe and chronic fungal rash over the entire plantar surface of the foot also which has not responded to topical miconazole. 11/07/17. Seen by Dr. Mendoza. The patient continues to report redness and swelling of the left 3rd toe but does not report increased drainage associated with distal left 3rd toe neuropathic non-pressure ulcer. He also on doxycycline and does not feel this has been effective as it has in the past. He's also applying topical miconazole to the plantar surface of the foot to treat a chronic fungal infection. 11/01/17. Seen by Dr. Mendoza. The patient reports some increased redness and swelling of the left 3rd toe but does not report increased drainage associated with distal left 3rd toe neuropathic non-pressure ulcer. He's now off of antibiotics that had been prescribed recently for cellulitis of the toe. The nurse also reports a fungal appearing rash over the plantar surface of the left foot the a crack at the medial aspect. 10/24/17. Seen by Dr. Mendoza. 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 10/17/17. Seen by Dr. Mendoza. 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 10/10/17. Seen by Dr. Mendoza. The patient called today concerned about redness and the appearance of the left 3rd toe which we've been treating for a chronic distal toe neuropathic ulcer. He does not report pain in the toe or increased drainage from the ulcer nor a more proximal trauma wound thought to be due to shear from the toe life he's been wearing recently. 10/05/17. 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 09/28/17. Seen by Dr. Mendoza. The patient underwent amputation of the right 3rd toe earlier this week due to refractory osteomyelitis and a non-healing neuropathic ulcer and does not report any complications. 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 09/21/17. Seen by Dr. Mendoza. 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 He's scheduled for amputation of the right 3rd toe due to refractory osteomyelitis with Dr. Pastrana next week. 09/13/17. Seen by Dr. Mendoza. 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 He was seen by Dr. Pastrana who's recommending amputation of the right 3rd toe due to recurrent and refractory osteomyelitis which is complicated by a non-healing distal ulcer. 09/08/17. Seen by Dr. Mendoza. 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 He has an appointment with podiatry this afternoon to review the right 3rd toe ulcer which has been a recurrent problem while the toe's been treated for acute osteomyelitis. My concern is that the osteomyelitis may not have resolved and he may require bone debridement to allow the ulcer to eventually completely heal. 08/31/17. Seen by Dr. Mendoza. 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 He's also been contacted by podiatry to schedule an appointment to review possible chronic osteomyelitis of the right 3rd toe distal phalanx but he's not yet called them back to schedule a date. 08/24/17. Seen by Dr. Mendoza. 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 Of note, he was pressure washing a boat yesterday and feels the ulcers may have gotten wet. He also completed an extended course of antibiotics recently that was treating acute osteomyelitis of the distal right 3rd toe and as of last week the overlying ulcer appeared to be nearly healed. 08/17/17. Seen by Dr. Mendoza. The patient's wound culture from the last visit grew MSSA, a resistant coag negative Staph, and a Sphingomonas species. He's now on clindamycin and does not report significant drainage associated with the right and left 3rd toe non-pressure ulcers. 08/10/17. Seen by Dr. Mendoza. 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 He's also completed his course of doxycycline for a total of 6 weeks of antibiotics which was prescribed for acute osteomyelitis of the distal right 3rd toe. He does not report pain in this toe as he had previously nor adverse side effects of the antibiotics. He typically keeps his feet covered when in the shower but notes last night he did not as he felt he needed to wash his feet. 08/03/17. Seen by Ryan Dacosta PA-C. The patient reports stable drainage from his right 3rd toe ulcer. He continues on doxycycline to treat the osteomyelitis underlying the ulcer. The patient also reports a new ulcer on his left foot which began spontaneously, and has been continually present for the past 4 days. The new ulcer has had clear drainage and no associated erythema. 07/27/17. Seen by Dr. Mendoza. The patient continues on doxycycline for osteomyelitis of the right 3rd toe without reporting adverse side effects and staff feel the associated right 3rd toe neuropathic ulcer continues to improve over the past week. Of note, the patient injured his back and has been off of work for a few days which has contributed to offloading the ulcer. 07/20/17. Seen by Dr. Mendoza. The patient continues on doxycycline for osteomyelitis of the right 3rd toe without reporting adverse side effects and staff feel the associated right 3rd toe neuropathic ulcer has improved considerably over the past week. 07/13/17. Seen by Dr. Mendoza. The patient continues on doxycycline for osteomyelitis of the right 3rd toe without reporting adverse side effects. He also states he's been quite active working and feels he's not been offloading the toe as much as he should. 07/05/17. Seen Dr. Mendoza. The patient continues on doxycycline for osteomyelitis of the right 3rd toe that was seen on his MRI 2 weeks ago. He does not report significant drainage or pain at the site and he has taken the last week off of work and improved his offloading of the toe. 06/27/17. Seen by Dr. Mendoza. The patient's now on doxycycline for osteomyelitis of the right 3rd toe that was seen on his MRI last week. He does not report significant drainage or pain at the site and he continues to work a regular schedule as a longer which has made it very difficult to offload the ulcer adequately. 06/20/17. Seen by Dr. Mendoza. 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 06/12/17. Seen by Dr. Mendoza. 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 His MRI to evaluate for underlying osteomyelitis has not yet been approved any continues on oral antibiotics to treat the MSSA positive wound culture noting we were able to probe to bone at his last visit. 06/06/17. Seen by Dr. Mendoza. The patient reports recurrence of pain associated with the chronic right third toe neuropathic ulcer over the past week. 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 He notes a new ulcer beneath the left first toe that is similar to the one beneath the right first toe noted on last exam. 05/31/17. Seen by Dr. Mendoza. Staff report a persistence of the recently documented neuropathic ulcer under the base of the right first toe that originally appeared as a cracked callus. 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 05/24/17. Seen by Dr. Mendoza. The patient does not report seeing strange associated with chronic right third toe neuropathic ulcer since his last visit however he reports a new ulcer over the dorsum of the right first toe. 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 05/15/17. Seen by Dr. Mendoza. The patient has been off antibiotics since last Monday and is not report significant drainage, swelling, or pain associated with the chronic right third toe neuropathic ulcer since his last visit. He is offloading as recommended using lambswool to lift the toe noting the significant plantarflexion deformity and has purchased a larger shoe to help prevent callus formation. 05/02/17. Seen by Dr. Mendoza. The patient does not report increased drainage or pain associated with the chronic right third to neuropathic ulcers since his last visit. He will complete his course of doxycycline today and does not report other side effects. He is attempting to offload the toe by using a rolled foam dressing every notes that his shoes also may be too small and preventing optimal offloading of the ulcer. He did have an x-ray that did not confirm osteomyelitis. 05/03/17. Seen by Dr. Mendoza. 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 He was not able to find a toe lift to purchase as recommended to help offload the plantar flexed distal toe but has remained off work and minimized walking as recommended. 04/26/17. Seen by Dr. Mendoza. 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 His CT evaluating for osteomyelitis was not approved by insurance due to an xray not being performed prior. In general he feels his toe is improving although swelling and erythema persist. 04/19/17. Seen by Dr. Mendoza. 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 He does not report adverse side effects, fevers, or feeling unwell in general. 04/14/17. Seen by Ryan Dacosta PA-C. This patient is new to our clinic and was sent urgently from Dr. Mcgee on [facility] for evaluation of his right 3rd toe. The ulcer began spontaneously 1 week ago and in the past few days has become red and warm. His PCP took a swab culture and placed him empirically on Keflex. The patient is insensate at the ulcer site but has not been diagnosed with diabetes, though it has been noted that his A1c and random sugars have been slightly elevated at recent PCP appointments. 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 He also has an ulcer under his right great toe which he states has been present and stable for several weeks. Past Medical History This information was obtained from the patient Patient has a medical history of: Hyperlipidemia Gout Hypertension Osteoarthritis Neuropathy Complaints and Symptoms This information was obtained from the patient Patient complains of: General Notes: I have reviewed and concur with the Review of Systems and Past Family Social History documents completed by the clinician, I have reviewed and concur with the Wound Assessment document completed by the clinician Allergic/Immunologic: Frequent Rashes Integumentary (Hair/Skin/Nails): Open Sore Musculoskeletal: Deformities Neurological: Loss of Protective Sensation Prior Wound History: Drainage, Erythema, Malodor Patient denies complaints or symptoms related to: Cardiovascular (Central): Dyspnea on Exertion, Irregular heart beat Constitutional Symptoms (General Health): Chills, Fever, Loss of Appetite Gastrointestinal (GI): Nausea / Vomiting, Stomach/abdominal pain Hematologic/Lymphatic: Bleeding / Clotting Disorders, Bleeding Tendency Musculoskeletal: Assistive Devices Psychiatric: Memory Loss Respiratory: Oxygen Use OBJECTIVE Constitutional BP elevated; Afebrile; Alert and in no distress. Well developed. Alert. Clean appearing.. Height/Length: 74 in (187.96 cm), Weight: 283.1 lbs (128.68 kgs), BMI: 36.3, Temperature: 98.4 ?F (36.89 ?C), Pulse: 71 bpm, Respiratory Rate: 18 breaths/min, Blood Pressure: 160/89 mmHg, Pulse Oximetry: 99 %. Ears, Nose, Mouth, and Throat: No clinically significant hearing loss on informal examination. Cardiovascular: Affected extremity exhibits no peripheral edema or cyanosis, is warm, and is well perfused. Capillary refill is less than 2 seconds. Integumentary (Hair, Skin) Mild periwound and left foot erythema without warmth; much improved from last review. Refer to appropriate clinician wound documentation for this visit; left foot ulcer extends to subcut with base partially covered with pink granulation, remainder fibrin and slough. Wound #6 Left Third Toe is an acute Full Thickness Neuropathic Ulcer and has received a status of Not Healed. Subsequent wound encounter measurements are 0.5cm length x 0.8cm width x 0.2cm depth, with an area of 0.4 sq cm and a volume of 0.08 cubic cm. Hypergranulation was noted. No tunneling has been noted. No sinus tract has been noted. No undermining has been noted. There is a moderate amount of serosanguineous drainage noted which has a mild odor. The patient reports no wound pain due to the wound being insensate. The wound margin is callus. Wound bed has No epithelialization, No eschar, Yes slough, Yes bright red, spongy granulation. The periwound skin moisture is normal. The periwound skin exhibited: Callus, Erythema. The periwound skin did not exhibit: Brawny Induration, Edema, Excoriation, Induration, Crepitus, Fluctuance, Friable, Rash, Atrophie Keener, Cyanosis, Ecchymosis, Hemosiderosis , Pallor, Rubor. The temperature of the periwound skin is WNL. Periwound skin does not exhibit signs or symptoms of infection. Local Pulse is Palpable. Neurological: Cranial nerves grossly intact with symmetric function normal by informal observation.. ASSESSMENT Active Problems ICD-10 (Encounter Diagnosis) L97.522 - Non-pressure chronic ulcer of other part of left foot with fat layer exposed (Encounter Diagnosis) B37.9 - Candidiasis, unspecified PROCEDURES Wound #6 Wound #6 (Neuropathic Ulcer) is located on the left third toe. A skin/ subcutaneous tissue level surgical debridement with a total area debrided of 0.4 sq cm was performed by Gustavo Mendoza MD. Subcutaneous was removed along with devitalized tissue: callus and slough. The following instrument(s) were used: curette. Pain control was achieved using 4% Lido. A time out was conducted prior to the start of the procedure. A minimal amount of bleeding was controlled with silver nitrate. The procedure was tolerated well with a pain level of 0 throughout and a pain level of 0 following the procedure. Post Debridement Measurements: 0.5cm length x 0.8cm width x 0.3cm depth; with an area of 0.4 sq cm and a volume of 0.12 cubic cm; Additional Information Muscle fascia or bone removed and sent to pathology?: No PLAN Wound Orders: Wound #6 Left Third Toe Cleanser Cleanse Wound: - Normal Saline and gauze, may use distilled water at home. May Shower. - Please avoid getting tap water in wound or on dressings. Cover while in the shower. Wash legs with Hibiclens. Dressings Primary dressing: - Interdry between toes. Kerasal on all calluses. Cover and secure with: - Foam then cover with duoderm. Change Dressing: - Daily. Scribing Attestation I attest, as the nurse, that I scribed these orders for the physician. Additional Orders: Off-Loading Keep weight off: - Left foot as much as possible. Follow-Up Appointments Return Appointment: - - 1 week. Other information: If you develop fever, chills, increased pain, drainage, redness or swelling please call our office. If after hours, respond to the ER. Should you experience any significant changes in your wound(s) or have any questions regarding your home care instructions please contact the wound center @ [phone]. If after hours, contact your primary care physician or go to the hospital emergency room. - Discontinue Bactrim. Start fluconazole General Notes: Please finished taking fluconazole as prescribed. I've reviewed the clinician's documentation and agree with the evaluation and plan as written. In addition, the patient's ulcer demonstrates evidence of non-viable devitalized tissue which will continue to benefit from sharp debridement to help promote granulation and expedite healing. Also, I'll defer additional fluconazole for now and he's been advised to keep his feet uncovered, except for the left 2nd toe ulcer, as much as possible to reduce moisture which is contributing to the chronic bilateral foot fungal rashes. Electronic Signature(s) Signed By: Date: Gustavo Mendoza MD 12/13/2017 07:09:40 Entered By: Gustavo Mendoza on 12/13/2017 07:06:54
== END ==
PROVIDERS: PCP Family Medicine; Visit Provider Internal Medicine
DX: L97.522 Non-pressure chronic ulcer of other part of left foot with fat layer exposed (principal); B37.9 Candidiasis, unspecified; G90.9 Disorder of the autonomic nervous system, unspecified
CPT/HCPCS: 11042

== ENCOUNTER → 2017-12-19 08:45 | Outpatient (CLI) | payer OTHER, SELFPAY | PROVIDERS: PCP Family Medicine; Visit Provider Family Medicine | DX: L97.521 Non-pressure chronic ulcer of other part of left foot limited to breakdown of skin (principal); G90.9 Disorder of the autonomic nervous system, unspecified | CPT/HCPCS: 99212; 99213 ==

== ENCOUNTER → 2017-12-19 10:51 | Outpatient (CLI) | payer OTHER, SELFPAY ==
--- NOTE | 2017-12-19 | DI.RAD.S_ITS ---
PROCEDURE: XR TOE LT MIN 2V INDICATIONS: LEFT TOE ULCER TECHNIQUE: 3 views of the first toe(s) acquired. COMPARISON: None. FINDINGS: Bones: No fractures or dislocations. No suspicious bony lesions. There is severe degeneration with joint space narrowing, subchondral sclerosis and osteophyte formation at the first metatarsophalangeal joint and the first interphalangeal joint. Soft tissues: No suspicious soft tissue densities. IMPRESSION: 1. No bony erosions. Early bone infection may not have radiographic findings. If clinical symptoms persist or clinical suspicion for osteomyelitis is high, MRI with and without contrast or a triple phase bone scan is suggested for further evaluation. Dictated by: Nichole Alcazar M.D. on 12/19/2017 at 12:33 Approved by: Nichole Alcazar M.D. on 12/19/2017 at 12:39
[2017-12-19 12:10] LABS: Add Manual Diff / Slide Review NO; Basophils Percent Auto 1.3 % (0-2); Eosinophils Percent Auto 3.9 % (2-4); Hematocrit 37.3 % (41-53); Hemoglobin 12.6 g/dL (13.5-17.5); Lymphocytes Percent Auto 15.4 % (25-40); Mean Corpuscular HGB Conc 33.7 % (30-36); Mean Corpuscular Hemoglobin 32.8 PG (26-34); Mean Corpuscular Volume 97.3 fL (80-100); Monocytes Percent Auto 8.2 % (3-14); Neutrophils Absolute Auto 4600 /uL (3000-5900); Neutrophils Percent Auto 71.2 % (50-75); Platelet Count 205 X10^3/uL (150-400); Red Blood Cell Count 3.83 X10^6/uL (4.5-5.9); Red Cell Distribution Width 16.4 % (11.6-14.8); White Blood Cell Count 6.5 X10^3/uL (4.5-11.0)
[2017-12-19 12:33] LABS: Erythrocyte Sedimentation Rate 37 MM/HR (0-15)
[2017-12-19 12:44] LABS: Alanine Aminotransferase 44 IU/L (21-72); Albumin 4.7 g/dL (3.5-5.0); Albumin Globulin Ratio 1.4 (1.0-2.8); Alkaline Phosphatase 83 U/L (38-126); Aspartate Aminotransferase 43 IU/L (17-59); Bilirubin Total 0.5 mg/dL (0.2-1.3); Blood Urea Nitrogen 28 mg/dL (9-20); C-Reactive Protein Quant 0.9 mg/dL (<1.0); Calcium 9.8 mg/dL (8.4-10.2); Carbon Dioxide 25 mmol/L (22-32); Chloride 103 mmol/L (98-107); Estimated Glomerular Filt Rate > 60.0 mL/min (>60); Globulin 3.3 g/dL (1.7-4.1); Glucose 113 mg/dL (70-100); HEMOLYSIS < 15 (0-50); Sodium 141 mmol/L (137-145)
[2017-12-19 12:46] LABS: Potassium 5.5 mmol/L (3.4-5.1)
[2017-12-19 12:48] LABS: Prealbumin 41.5 mg/dL (17.6-36.0)
== END ==
PROVIDERS: PCP Family Medicine; Visit Provider Family Medicine
DX: L97.522 Non-pressure chronic ulcer of other part of left foot with fat layer exposed (principal)
CPT/HCPCS: 36415; 73660; 80053; 84134; 85025; 85651; 86140

== ENCOUNTER → 2017-12-26 08:48 | Outpatient (CLI) | payer OTHER, SELFPAY | PROVIDERS: PCP Family Medicine; Visit Provider Family Medicine | DX: L97.524 Non-pressure chronic ulcer of other part of left foot with necrosis of bone (principal); G60.9 Hereditary and idiopathic neuropathy, unspecified; E87.5 Hyperkalemia; L97.521 Non-pressure chronic ulcer of other part of left foot limited to breakdown of skin | CPT/HCPCS: 11042; 99214 ==

== ENCOUNTER → 2018-01-02 09:04 | Outpatient (CLI) | payer OTHER, SELFPAY | PROVIDERS: PCP Family Medicine; Visit Provider Family Medicine | DX: G90.9 Disorder of the autonomic nervous system, unspecified (principal); L97.521 Non-pressure chronic ulcer of other part of left foot limited to breakdown of skin; E87.5 Hyperkalemia | CPT/HCPCS: 97597; 99213 ==

== ENCOUNTER → 2018-01-02 10:14 | Outpatient (CLI) | payer OTHER, SELFPAY ==
[2018-01-02 11:03] LABS: BUN Creatinine Ratio 21.3 (6-22); Blood Urea Nitrogen 17 mg/dL (9-20); Calcium 9.6 mg/dL (8.4-10.2); Carbon Dioxide 29 mmol/L (22-32); Chloride 100 mmol/L (98-107); Estimated Glomerular Filt Rate > 60.0 mL/min (>60); Glucose 135 mg/dL (70-100); HEMOLYSIS < 15 (0-50); Potassium 5.2 mmol/L (3.4-5.1); Sodium 141 mmol/L (137-145)
== END ==
PROVIDERS: PCP Family Medicine; Visit Provider Family Medicine
DX: L97.524 Non-pressure chronic ulcer of other part of left foot with necrosis of bone (principal); L97.521 Non-pressure chronic ulcer of other part of left foot limited to breakdown of skin
CPT/HCPCS: 36415; 80048

== ENCOUNTER → 2018-01-08 09:14 | Outpatient (CLI) | payer OTHER, SELFPAY ==
--- NOTE | 2018-01-08 | DI.RAD.S_ITS ---
PROCEDURE: XR TOE RT MIN 2V INDICATIONS: R 2ND TOE TECHNIQUE: Pre-views of the right toe(s) acquired. COMPARISON: [facility], CR, XR TOE LT MIN 2V, 12/19/2017, 11:22. [facility], CR, TOE MINIMUM 2 VIEWS RIGHT, 04/26/2017, 11:18. FINDINGS: Bones: No fractures or dislocations of the third digit is amputated from the third metatarsal head distally, and degenerative changes are prominent and appear to have slightly worsened at the first MTP joint from the comparison study in April of this year . No suspicious bony lesions. Soft tissues: No suspicious soft tissue densities. IMPRESSION: Amputation of the third digit from the metatarsal head distally. No active osteomyelitis found in the remaining osseous structures. Mild interval worsening of the osteoarthritis at the first MTP joint.. Dictated by: Boogie Rosenbaum M.D. on 01/08/2018 at 13:02 Approved by: Boogie Rosenbaum M.D. on 01/08/2018 at 13:04
--- NOTE | 2018-01-08 | DI.MRI.S_ITS ---
PROCEDURE: MR FOOT LT WO/W CON INDICATIONS: Non-pressure chronic ulcer of left foot. TECHNIQUE: Noncontrast sagittal T1 spin echo and T2 fast spin echo with fat saturation, long-axis T1 spin echo and T2 fast spin echo with fat saturation; short-axis T1 spin echo, proton density fast spin echo, and T2 fast spin echo with fat saturation through the forefoot. Post-contrast short axis, long axis, and sagittal T1 spin echo with fat saturation through the forefoot. COMPARISON: [facility], CR, XR TOE LT MIN 2V, 12/19/2017, 11:22. FINDINGS: Image quality: There is mild motion artifact. Bones and joints: There is abnormal edema and enhancement of the 3rd distal phalanx with associated bony erosion distally consistent with osteomyelitis. This extends to the 3rd distal interphalangeal joint. There is adjacent periosteal enhancement along the 3rd middle phalanx. Elsewhere, no other definite evidence of osteomyelitis. There is moderate degeneration of the 1st metatarsophalangeal and interphalangeal joints. No evidence of stress reaction or stress fractures. Soft tissues: There is abnormal edema and enhancement of the 3rd toe distally with a soft tissue ulcer also demonstrated distally. There is a peripherally enhancing fluid collection at the tip of the 3rd distal phalanx consistent with an abscess. This measures approximately 0.6 x 0.8 x 0.6 cm. There is mild soft tissue edema demonstrated in the lumbrical muscles with minimal enhancement. The findings are compatible with myositis, muscle strains, or denervation changes. There is severe fatty atrophy of the visualized foot musculature. Visualized flexor and extensor tendons appear intact, without tenosynovitis. The distal insertions of the peroneus brevis and longus tendons appear intact. The principal Lisfranc ligament appears intact. No soft tissue ganglion cysts or bursal fluid collections. IMPRESSION: 1. Findings consistent with osteomyelitis of the 3rd distal phalanx. 2. Soft tissue edema and enhancement of the 3rd toe distally consistent with cellulitis with a small soft tissue ulcer as well as a small abscess adjacent to the tip of the distal phalanx. Dictated by: Martin Cuellar M.D. on 01/08/2018 at 16:55 Approved by: Martin Cuellar M.D. on 01/08/2018 at 17:04
== END ==
PROVIDERS: PCP Family Medicine; Visit Provider Family Medicine
DX: L97.524 Non-pressure chronic ulcer of other part of left foot with necrosis of bone (principal); M86.8X7 Other osteomyelitis, ankle and foot; L97.512 Non-pressure chronic ulcer of other part of right foot with fat layer exposed; M19.071 Primary osteoarthritis, right ankle and foot; L03.032 Cellulitis of left toe; G60.9 Hereditary and idiopathic neuropathy, unspecified
CPT/HCPCS: 73660; 73720; A9579

== ENCOUNTER → 2018-01-08 13:24 | Outpatient (CLI) | payer OTHER, SELFPAY | PROVIDERS: PCP Family Medicine; Visit Provider Family Medicine | DX: L97.524 Non-pressure chronic ulcer of other part of left foot with necrosis of bone (principal); G60.9 Hereditary and idiopathic neuropathy, unspecified; E87.5 Hyperkalemia; M86.172 Other acute osteomyelitis, left ankle and foot; L97.512 Non-pressure chronic ulcer of other part of right foot with fat layer exposed; L03.032 Cellulitis of left toe; L02.416 Cutaneous abscess of left lower limb | CPT/HCPCS: 97597; 99213; 99214 ==

== ENCOUNTER → 2018-01-16 08:48 | Outpatient (CLI) | payer OTHER, SELFPAY | PROVIDERS: PCP Family Medicine; Visit Provider Family Medicine | DX: L97.524 Non-pressure chronic ulcer of other part of left foot with necrosis of bone (principal); G60.9 Hereditary and idiopathic neuropathy, unspecified; E87.5 Hyperkalemia; M86.172 Other acute osteomyelitis, left ankle and foot; L97.512 Non-pressure chronic ulcer of other part of right foot with fat layer exposed; L03.032 Cellulitis of left toe; L02.416 Cutaneous abscess of left lower limb | CPT/HCPCS: 11042; 87070; 87075; 87077; 87147; 87186; 87205; 99213 ==

== ENCOUNTER → 2018-01-23 09:44 | Outpatient (CLI) | payer OTHER, SELFPAY | PROVIDERS: PCP Family Medicine; Visit Provider Family Medicine | DX: G90.9 Disorder of the autonomic nervous system, unspecified (principal); L97.513 Non-pressure chronic ulcer of other part of right foot with necrosis of muscle; E87.5 Hyperkalemia; A49.02 Methicillin resistant Staphylococcus aureus infection, unspecified site | CPT/HCPCS: 99213; 99214 ==

== ENCOUNTER → 2018-01-23 09:54 | Outpatient (CLI) | payer OTHER, SELFPAY ==
[2018-01-23 10:28] LABS: BUN Creatinine Ratio 19.5 (6-22); Blood Urea Nitrogen 39 mg/dL (9-20); Calcium 9.4 mg/dL (8.4-10.2); Carbon Dioxide 26 mmol/L (22-32); Chloride 99 mmol/L (98-107); Estimated Glomerular Filt Rate 34.4 mL/min (>60); Glucose 145 mg/dL (70-100); HEMOLYSIS < 15 (0-50); Sodium 139 mmol/L (137-145)
== END ==
PROVIDERS: PCP Family Medicine; Visit Provider Family Medicine
DX: E87.5 Hyperkalemia (principal)
CPT/HCPCS: 36415; 80048

== ENCOUNTER → 2018-01-30 08:55 | Outpatient (CLI) | payer OTHER, SELFPAY | PROVIDERS: PCP Family Medicine; Visit Provider Family Medicine | DX: G60.9 Hereditary and idiopathic neuropathy, unspecified (principal); L97.512 Non-pressure chronic ulcer of other part of right foot with fat layer exposed; M86.172 Other acute osteomyelitis, left ankle and foot; E87.5 Hyperkalemia | CPT/HCPCS: 11042; 36415; 80048; 87070; 87075; 87077; 87147; 87186; 87205; 99213 ==

== ENCOUNTER → 2018-01-30 09:37 | Outpatient (CLI) | payer OTHER, SELFPAY ==
[2018-01-30 12:19] LABS: BUN Creatinine Ratio 17.3 (6-22); Blood Urea Nitrogen 38 mg/dL (9-20); Carbon Dioxide 23 mmol/L (22-32); Chloride 103 mmol/L (98-107); Estimated Glomerular Filt Rate 30.8 mL/min (>60); Glucose 152 mg/dL (70-100); HEMOLYSIS < 15 (0-50); Sodium 142 mmol/L (137-145)
[2018-01-30 12:24] LABS: Potassium 5.7 mmol/L (3.4-5.1)
== END ==
PROVIDERS: PCP Family Medicine; Visit Provider Family Medicine
DX: Z13.9 Encounter for screening, unspecified (principal)
CPT/HCPCS: 36415; 80048

== ENCOUNTER → 2018-02-15 13:32 | Outpatient (CLI) | payer OTHER, SELFPAY | PROVIDERS: PCP Family Medicine; Visit Provider Family Medicine | DX: G60.9 Hereditary and idiopathic neuropathy, unspecified (principal); L97.512 Non-pressure chronic ulcer of other part of right foot with fat layer exposed; M86.172 Other acute osteomyelitis, left ankle and foot | CPT/HCPCS: 11042 ==

== ENCOUNTER → 2018-02-22 09:01 | Outpatient (CLI) | payer OTHER, SELFPAY | PROVIDERS: PCP Family Medicine; Visit Provider Family Medicine | DX: G60.9 Hereditary and idiopathic neuropathy, unspecified (principal); L97.512 Non-pressure chronic ulcer of other part of right foot with fat layer exposed; M86.172 Other acute osteomyelitis, left ankle and foot; A49.02 Methicillin resistant Staphylococcus aureus infection, unspecified site; E87.5 Hyperkalemia | CPT/HCPCS: 97597 ==

== ENCOUNTER → 2018-02-22 10:14 | Outpatient (CLI) | payer OTHER, SELFPAY ==
[2018-02-22 11:01] LABS: Add Manual Diff / Slide Review NO; Basophils Percent Auto 0.9 % (0-2); Eosinophils Percent Auto 5.2 % (2-4); Hematocrit 36.8 % (41-53); Hemoglobin 12.4 g/dL (13.5-17.5); Lymphocytes Percent Auto 14.9 % (25-40); Mean Corpuscular HGB Conc 33.6 % (30-36); Mean Corpuscular Hemoglobin 31.6 PG (26-34); Mean Corpuscular Volume 94.2 fL (80-100); Neutrophils Absolute Auto 5400 /uL (1500-7000); Platelet Count 328 X10^3/uL (150-400); Red Blood Cell Count 3.91 X10^6/uL (4.5-5.9); Red Cell Distribution Width 15.3 % (11.6-14.8); White Blood Cell Count 7.7 X10^3/uL (4.5-11.0)
[2018-02-22 11:25] LABS: BUN Creatinine Ratio 28.7 (6-22); Blood Urea Nitrogen 43 mg/dL (9-20); Calcium 10.2 mg/dL (8.4-10.2); Carbon Dioxide 26 mmol/L (22-32); Chloride 100 mmol/L (98-107); Erythrocyte Sedimentation Rate 63 MM/HR (0-15); Estimated Glomerular Filt Rate 47.7 mL/min (>60); Glucose 101 mg/dL (80-110); HEMOLYSIS < 15 (0-50); Potassium 5.3 mmol/L (3.4-5.1); Sodium 139 mmol/L (137-145)
[2018-02-22 12:00] LABS: High Sensitivity CRP - Cardiac > 15.0 mg/L (1.0-3.0)
== END ==
PROVIDERS: PCP Family Medicine; Visit Provider Family Medicine
DX: A49.02 Methicillin resistant Staphylococcus aureus infection, unspecified site (principal); L97.512 Non-pressure chronic ulcer of other part of right foot with fat layer exposed; M86.172 Other acute osteomyelitis, left ankle and foot
CPT/HCPCS: 36415; 80048; 85025; 85651; 86140

== ENCOUNTER → 2018-03-01 09:02 | Outpatient (CLI) | payer OTHER, SELFPAY | PROVIDERS: PCP Family Medicine; Visit Provider Family Medicine | DX: G60.9 Hereditary and idiopathic neuropathy, unspecified (principal); L97.514 Non-pressure chronic ulcer of other part of right foot with necrosis of bone; M86.172 Other acute osteomyelitis, left ankle and foot; E87.5 Hyperkalemia; I10 Essential (primary) hypertension | CPT/HCPCS: 11044; 87070; 87075; 87077; 87147; 87186; 87205; 99213 ==

== ENCOUNTER → 2018-03-09 09:03 | Outpatient (CLI) | payer OTHER, SELFPAY | PROVIDERS: PCP Family Medicine; Visit Provider Family Medicine | DX: G60.9 Hereditary and idiopathic neuropathy, unspecified (principal); L97.516 Non-pressure chronic ulcer of other part of right foot with bone involvement without evidence of necrosis; A49.01 Methicillin susceptible Staphylococcus aureus infection, unspecified site; M86.672 Other chronic osteomyelitis, left ankle and foot; E87.5 Hyperkalemia; I10 Essential (primary) hypertension | CPT/HCPCS: 11042; 99213 ==

== ENCOUNTER → 2018-03-20 09:30 | Outpatient (CLI) | payer OTHER, SELFPAY | PROVIDERS: PCP Family Medicine; Visit Provider Family Medicine | DX: G90.9 Disorder of the autonomic nervous system, unspecified (principal); L97.512 Non-pressure chronic ulcer of other part of right foot with fat layer exposed; M86.172 Other acute osteomyelitis, left ankle and foot; A49.01 Methicillin susceptible Staphylococcus aureus infection, unspecified site; E87.5 Hyperkalemia; I10 Essential (primary) hypertension | CPT/HCPCS: 11042 ==

== ENCOUNTER → 2018-04-03 09:04 | Outpatient (CLI) | payer OTHER, SELFPAY | PROVIDERS: PCP Family Medicine; Visit Provider Family Medicine | DX: G90.9 Disorder of the autonomic nervous system, unspecified (principal); L97.512 Non-pressure chronic ulcer of other part of right foot with fat layer exposed; M86.172 Other acute osteomyelitis, left ankle and foot; E87.5 Hyperkalemia | CPT/HCPCS: 97597 ==

== ENCOUNTER → 2018-04-03 10:15 | Outpatient (CLI) | payer OTHER, SELFPAY ==
[2018-04-03 11:24] LABS: Erythrocyte Sedimentation Rate 66 MM/HR (0-15)
[2018-04-03 11:35] LABS: BUN Creatinine Ratio 15.6 (6-22); Blood Urea Nitrogen 25 mg/dL (9-20); C-Reactive Protein Quant 8.1 mg/dL (<1.0); Calcium 8.8 mg/dL (8.4-10.2); Carbon Dioxide 23 mmol/L (22-32); Chloride 99 mmol/L (98-107); Estimated Glomerular Filt Rate 44.3 mL/min (>60); Glucose 118 mg/dL (80-110); HEMOLYSIS < 15 (0-50); Potassium 4.7 mmol/L (3.4-5.1); Sodium 136 mmol/L (137-145)
== END ==
PROVIDERS: PCP Family Medicine; Visit Provider Family Medicine
DX: L97.514 Non-pressure chronic ulcer of other part of right foot with necrosis of bone (principal)
CPT/HCPCS: 36415; 80048; 85651; 86140

== ENCOUNTER → 2018-04-10 09:03 | Outpatient (CLI) | payer OTHER, SELFPAY | PROVIDERS: PCP Family Medicine; Visit Provider Family Medicine | DX: G90.9 Disorder of the autonomic nervous system, unspecified (principal); L97.511 Non-pressure chronic ulcer of other part of right foot limited to breakdown of skin; M86.172 Other acute osteomyelitis, left ankle and foot; E87.5 Hyperkalemia; I10 Essential (primary) hypertension | CPT/HCPCS: 93922; 97597 ==

== ENCOUNTER → 2018-04-17 09:08 | Outpatient (CLI) | payer OTHER, SELFPAY | PROVIDERS: PCP Family Medicine; Visit Provider Family Medicine | DX: Z48.817 Encounter for surgical aftercare following surgery on the skin and subcutaneous tissue (principal) | CPT/HCPCS: 99212 ==

== ENCOUNTER → 2018-04-17 09:53 | Outpatient (CLI) | payer OTHER, SELFPAY ==
[2018-04-17 10:40] LABS: Erythrocyte Sedimentation Rate 85 MM/HR (0-15)
[2018-04-17 10:50] LABS: C-Reactive Protein Quant 5.3 mg/dL (<1.0)
== END ==
PROVIDERS: PCP Family Medicine; Visit Provider Family Medicine
DX: L97.512 Non-pressure chronic ulcer of other part of right foot with fat layer exposed (principal)
CPT/HCPCS: 36415; 85651; 86140

== ENCOUNTER 2018-05-25 08:58 | Day surgery (SDC) | payer OTHER, SELFPAY ==
[2018-05-17 12:43] VITALS: BMI 34.7
[2018-05-25 10:09] VITALS: BP 131/80; PULSE 62; RESP 14; TEMP 36.7; O2SAT 99; BMI 34.7
[2018-05-25] MEDS: LACTATED RINGERS 1,000 ML 42 ML IV (11:40)
--- NOTE | 2018-05-25 11:52 | PM.PREOP ---
Pre-operative Note Interval Note History & Physical reviewed/Exam performed by Physician: Yes Changes to H&P: No
--- NOTE | 2018-05-25 11:52 | PM.OP.1 ---
Operative Date/Time/Diagnoses Date of procedure: 05/25/18 Time of procedure: 11:52 Pre-op diagnosis: Right second toe recurrent wound, hammertoe Right fourth hammertoe Post-op diagnosis: same Procedure & Clinicians Procedure: Right second toe amputation Right fourth toe proximal interphalangeal arthroplasty, flexor tenotomy Same procedure as scheduled: Yes Indications: Recurrent wound second toe, at-risk contracted fourth hammertoe Surgeon: Amber Pastrana Click Yes if Unassisted: Yes Anesthesia Type: MAC +/- Operative Notes Closure Type: primary Specimen(s): none sent Estimated Blood Loss (mL): 30 Blood products transfused: none Procedure in detail: The patient was brought to the operating room and placed on the operating table in the supine position. the tourniquet was placed about the ankle. Well padded appropriately aligned. After induction of sedation, local anesthesia was obtained to the right 2nd and 4th toe. For the foot and ankle were prepped and draped in the usual aseptic manner. The tourniquet was inflated. After check of anesthesia, an incision was made over the dorsal 4th proximal interphalangeal joint. The incision was deepened through subcutaneous tissues being careful to identify and retract all vital neural and vascular structures. All bleeders were cauterized and ligated as necessary. A transection of the extensor tendon at the proximal interphalangeal joint was performed reflecting this distally and proximally and mobilizing the joint with release of the medial and lateral ligaments. A saw was used to resect the head of the proximal phalanx and a small amount of the immediate phalangeal base was removed as there were chronic changes that were causing an inability of the toe to straighten. The edges were smoothed with a bone forceps. A 2nd percutaneous incision on the plantar surface of the proximal interphalangeal joint allowed for a percutaneous flexor tenotomy which then allowed extension of the digit. This digit was gently covered while the 2nd digit was attended to. After check of anesthesia a full-thickness circumferential incision was made around the 2nd toe. This was then continued into the metatarsophalangeal joint linearly. The toe was carefully disarticulated. The area was irrigated with copious amounts of normal sterile saline. No necrotic tissue or abscesses were noted. Skin and tissue was revised to allow for appropriate closure. Vessels were cauterized and ligated as necessary. Both the 2nd and 4th toe areas were irrigated with copious amounts of normal sterile saline. The tourniquet was deflated, prompt hyperemic response was seen to the foot. 4-0 Vicryl was used subcutaneously for closure including repair of the extensor tendon on the 4th toe. 3-0 and 4 0 nylon suture was used for the skin. The area was dressed with a sterile lightly compressive dressing. Complications: none Condition: stable Disposition: PACU Plan for aftercare: Plan: Following a period of postoperative monitoring, the patient be discharged home on written and oral postoperative instructions including keeping the dressing dry and intact, avoiding significant ambulation on the foot, elevating the foot when seated home. DVT prevention techniques have been reviewed. For the 1st postoperative visit the dressing will be changed and close to the 3rd postoperative week we will likely remove the sutures.
[2018-05-25] MEDS: CEFAZOLIN 2 GM/100 ML FROZ.PIGGY IV (11:59)
--- NOTE | 2018-05-25 12:17 | SUR.OPER ---
Supine on padded OR bed, head on pillow, arms secured on padded arm boards at <90 degrees abduction, legs uncrossed, safety belt at ABDOMEN, tape over blanket over LEFT lower leg.
[2018-05-25] MEDS: BUPIVACAINE 0.5% (PF) VIAL 10 ML INJ (12:22)
[2018-05-25] MEDS: LIDOCAINE 2% INJ SDV 5 ML INJ (12:23)
[2018-05-25 13:12] VITALS: BP 111/67; PULSE 56; RESP 15; TEMP 36.5; O2SAT 99
[2018-05-25 13:35] VITALS: BP 113/72; PULSE 53; RESP 16; TEMP 36.5; O2SAT 98
== END 2018-05-25 13:48 ==
LOC: OR 09:00
PROVIDERS: PCP Family Medicine; Visit Provider Podiatrist
PROC: (CPT 28285; principal; 2018-05-25 11:15)
PROC: (CPT 28285; 2018-05-25 11:15)
DX: M20.41 Other hammer toe(s) (acquired), right foot (principal); L97.514 Non-pressure chronic ulcer of other part of right foot with necrosis of bone; I10 Essential (primary) hypertension; G60.9 Hereditary and idiopathic neuropathy, unspecified
CPT/HCPCS: 28285; 28820; J0690; J2250; J2704; J3010

== ENCOUNTER → 2019-01-18 09:02 | Outpatient (CLI) | payer OTHER, SELFPAY ==
--- NOTE | 2019-01-18 | DI.MRI.S_ITS ---
PROCEDURE: MR SHOULDER RT WO CON INDICATIONS: Right shoulder pain TECHNIQUE: Noncontrast oblique coronal T2 fast spin echo with fat saturation, oblique sagittal T1 spin echo and T2 fast spin echo with fat saturation, axial T1 spin echo and T2 fast spin echo with fat saturation through the shoulder. COMPARISON: [facility], CR, XR SHOULDER 2+ VIEWS BILATERAL, 01/02/2019, 11:01. FINDINGS: Image quality: Excellent. Rotator cuff: There is a moderate focus of fluid signal intensity within the mid/anterior supraspinatus tendon at the humeral insertion site which demonstrates bursal surface extension. There is a small focus of high T2 signal intensity within the anterior infraspinatus tendon at the humeral insertion sites and the musculotendinous junction. The supraspinatus, infraspinatus, and subscapularis tendons otherwise appear intact throughout. Sagittal images demonstrate no muscle atrophy. Bones and bursae: No bone marrow contusions or fractures. No acromioclavicular joint degeneration. The acromion demonstrates conventional anatomy. An os acromiale is present. No pathologic subacromial-subdeltoid or subcoracoid bursal fluid is present. Capsule and soft tissues: Linear high T2 signal intensity traverses the posterior superior, mid posterior, and posteroinferior labrum. The biceps tendon demonstrates high grade tearing. The rotator interval appears normal, without fibrosis. The coracohumeral ligament is normal in thickness. IMPRESSION: 1. Moderate grade partial-thickness bursal surface tearing of the mid/anterior supraspinatus tendon. 2. Low-grade partial-thickness intrasubstance tearing of the infraspinatus tendon. 3. Os acromiale. 4. Posterior labral tearing. 5. Biceps tendon tearing. Dictated by: Fredi Ortiz M.D. on 01/18/2019 at 10:32 Approved by: Fredi Ortiz M.D. on 01/18/2019 at 11:14
== END ==
PROVIDERS: PCP Family Medicine; Visit Provider Orthopaedic Surgery
DX: M75.41 Impingement syndrome of right shoulder (principal); M75.111 Incomplete rotator cuff tear or rupture of right shoulder, not specified as traumatic; S43.491A Other sprain of right shoulder joint, initial encounter; S46.211A Strain of muscle, fascia and tendon of other parts of biceps, right arm, initial encounter
CPT/HCPCS: 73221

== ENCOUNTER → 2021-11-29 07:41 | Outpatient (CLI) | payer OTHER, SELFPAY ==
--- NOTE | 2021-11-29 | DI.ECHO.S_ITS ---
[facility] +---------+ : : [address] : : : : [id number] : : : : Phone: [phone]+ Echocardiogram Report + + :Name: ELLIOT JIANG Study Date: 11/29/2021 Height: 74 in : :[facility] ReadingLocation: Weight: 290 lb : : Gender: Male BSA: 2.5 m2 : :: 1960 Age: 61 yrs BP: 143/84 mmHg: :Reason For Study: AORTIC STENOSIS : :Ordering Physician: ARCENIO, : :ELLIOT Lacy Performed By: Pamela Avila : :Referring: ELLIOT RG : + + Interpretation Summary Normal left ventricle size with ejection fraction 60-65%. Mildly dilated left atrium. Mild to moderate aortic stenosis. The peak aortic velocity is 3.1 m/sec. Mild aortic regurgitation. Procedure: A two-dimensional transthoracic echocardiogram with color flow and Doppler was performed. The study quality was technically difficult. There is no prior echocardiogram noted for this patient. A contrast injection of Definity was performed to improve assessment of LV function. The patient was in sinus rhythm with heart rates between 57-95 bpm during the exam. Left Ventricle: The left ventricle is normal in size and wall thickness. The ejection fraction is estimated to be 60-65%. There are no focal wall motion abnormalities. Right Ventricle: The right ventricle is not well visualized. The right ventricular systolic function is normal. Atria: The left atrium is mildly dilated. Right atrial size is normal. There is no Doppler evidence for an interatrial shunt. Mitral Valve: The mitral valve is normal in structure and function. There is trace mitral regurgitation. Aortic Valve: The aortic valve is trileaflet. The aortic valve is mildly calcified. There is mild to moderate aortic stenosis. The peak aortic velocity is 3.1 m/sec. The aortic valve mean gradient is 22 mmHg. There is mild aortic regurgitation. Tricuspid Valve: The tricuspid valve is normal in structure and function. There is a trace or physiologic amount of tricuspid regurgitation. Pulmonic Valve: The pulmonic valve is not well visualized. There is no pulmonic valvular regurgitation. Great Vessels: The aortic root is normal size. The dimensions of the ascending aorta are normal. The IVC is of normal diameter and collapses greater than 50% with a sniff. This suggests a low right atrial pressure of 3 mm Hg. Pericardium/ Pleura There is no pericardial effusion. There is no pleural effusion. MMode/2D Measurements & Calculations LVIDd: 5.5 cm LVOT diam: 2.3 cm LVIDs: 3.5 cm Ao root diam: 3.5 cm FS: 37.5 % asc Aorta Diam: 3.8 cm IVSd: 0.98 cm Ao Arch Diam (Prox Trans): 3.8 cm LVPWd: 1.1 cm LV rosenthal. diameter/BSA (cm/m^2): 2.2 LV sys. diameter/BSA (cm/m^2): 1.4 LA A2 area: 25.5 cm2 RA long axis: 6.3 cm LA A4 area: 26.8 cm2 RA area: 23.0 cm2 LA length (vol): 6.3 cm RA vol: 71.3 ml LA vol: 92.3 ml RA : 28.0 ml/m2 LA vol index: 36.3 ml/m2 IVC diam: 2.0 cm TAPSE: 1.9 cm Doppler Measurements & Calculations Ao V2 max: 312.9 cm/sec LVOT Max Tera: 118.1 cm/sec Ao V2 mean: 223.7 cm/sec LV V1 max P.6 mmHg Ao max P.7 mmHg LV V1 VTI: 28.0 cm Ao mean P.1 mmHg MEGHA(I,D): 1.7 cm2 Ao V2 VTI: 70.9 cm MEGHA(V,D): 1.6 cm2 sev ratio: 0.39 MEGHA indexed to BSA (cm^2/m^2): 0.66 MV E max tera: 78.9 cm/sec PA V2 max: 112.8 cm/sec MV A max tera: 80.2 cm/sec PA V2 mean: 76.2 cm/sec MV E/A: 0.98 PA mean P.7 mmHg Med Peak E' Etra: 8.6 cm/sec PA pr(Accel): 32.8 mmHg E/E' med: 9.2 Lat Peak E' Tera: 8.3 cm/sec E/E' lat: 9.5 E/e' average: 9.3 MV dec time: 0.19 sec SV([facility]): 118.9 ml Electronically signed by: Jared España on Reading Physician:11/29/2021 12:29 PM
== END ==
PROVIDERS: PCP Family Medicine; Referring Provider Family Medicine; Visit Provider Family Medicine
DX: I35.2 Nonrheumatic aortic (valve) stenosis with insufficiency (principal)
CPT/HCPCS: C8929; Q9957

== ENCOUNTER → 2023-06-27 08:59 | Outpatient (CLI) | payer MEDICARE, SELFPAY | PROVIDERS: PCP Family Medicine; Referring Provider Family Medicine; Visit Provider Surgery | DX: E11.621 Type 2 diabetes mellitus with foot ulcer (principal); L97.522 Non-pressure chronic ulcer of other part of left foot with fat layer exposed; L84 Corns and callosities; R60.0 Localized edema; L53.9 Erythematous condition, unspecified; I10 Essential (primary) hypertension; G62.9 Polyneuropathy, unspecified | CPT/HCPCS: 11042; 87070; 87075; 87205; 99204; 99214 ==

== ENCOUNTER → 2023-06-27 10:49 | Outpatient (CLI) | payer MEDICARE, SELFPAY ==
--- NOTE | 2023-06-27 10:51 | DI.RAD.S_ITS ---
PROCEDURE: XR TOE LT MIN 2V INDICATIONS: ulcer on left third toe TECHNIQUE: 3 views of the 3rd toe(s) acquired. COMPARISON: [facility], CR, XR TOE RT MIN 2V, 01/08/2018, 12:42. [facility], CR, XR TOE LT MIN 2V, 12/19/2017, 11:22. FINDINGS: Bones: No acute displaced fracture or dislocation. Advanced degenerative changes of the 1st MTP and 1st interphalangeal joint again seen, likely worse than 2018 radiograph. Partially seen nonacute bone fragment adjacent to the medial malleolus. Hammertoe deformities. On lateral view, there may be erosive changes at the distal phalangeal tuft. Soft tissues: Small ossification adjacent to the 5th metatarsal base again seen. IMPRESSION: Possible erosive changes at the distal phalangeal tuft corresponding to 3rd toe clinical area of concern, possibly representing osteomyelitis. If there is high concern for further derangement, consider MRI evaluation. Advanced 1st ray degenerative changes, worse than 2018. Dictated by: John Pulliam M.D. on 06/27/2023 at 14:14 Approved by: John Pulliam M.D. on 06/27/2023 at 14:16
[2023-06-27 11:36] LABS: Add Manual Diff / Slide Review NO; Basophils Absolute Auto 0 /uL (0-100); Basophils Percent Auto 0.3 % (0-2); Eosinophils Absolute Auto 100 /uL (0-450); Eosinophils Percent Auto 0.7 % (2-4); Hematocrit 35.2 % (41-53); Hemoglobin 11.8 g/dL (13.5-17.5); Lymphocytes Absolute Auto 800 /uL (1100-4500); Lymphocytes Percent Auto 7.3 % (25-40); Mean Corpuscular HGB Conc 33.7 % (30-36); Mean Corpuscular Hemoglobin 30.2 PG (26-34); Mean Corpuscular Volume 89.7 fL (80-100); Monocytes Absolute Auto 900 /uL (0-900); Monocytes Percent Auto 7.7 % (3-14); Neutrophils Absolute Auto 9300 /uL (1500-7000); Platelet Count 282 X10^3/uL (150-400); Red Blood Cell Count 3.92 X10^6/uL (4.5-5.9); Red Cell Distribution Width 14.5 % (11.6-14.8); White Blood Cell Count 11.1 X10^3/uL (4.5-11.0)
[2023-06-27 11:58] LABS: Erythrocyte Sedimentation Rate > 140 MM/HR (0-15)
[2023-06-27 16:20] LABS: Alanine Aminotransferase 45 IU/L (<50); Albumin 3.3 g/dL (3.5-5.0); Albumin Globulin Ratio 1.1 (1.0-2.8); Alkaline Phosphatase 188 U/L (38-126); Aspartate Aminotransferase 30 IU/L (17-59); BUN Creatinine Ratio 22.1 (6-22); Bilirubin Total 0.5 mg/dL (0.2-1.3); Blood Urea Nitrogen 34 mg/dL (9-20); Calcium 8.8 mg/dL (8.4-10.2); Carbon Dioxide 23 mmol/L (22-32); Chloride 98 mmol/L (98-107); Estimated Glomerular Filt Rate 50 mL/min (>60); Glucose 291 mg/dL (80-110); HEMOLYSIS < 15 (0-50); Potassium 4.8 mmol/L (3.4-5.1); Sodium 130 mmol/L (137-145); Total Protein 6.3 g/dL (6.3-8.2)
[2023-06-27 16:30] LABS: C-Reactive Protein Quant 20.5 mg/dL (<1.0)
== END ==
PROVIDERS: PCP Family Medicine; Referring Provider Surgery; Visit Provider Surgery
DX: E11.621 Type 2 diabetes mellitus with foot ulcer (principal); L97.522 Non-pressure chronic ulcer of other part of left foot with fat layer exposed; L84 Corns and callosities; R60.0 Localized edema; L53.9 Erythematous condition, unspecified; I10 Essential (primary) hypertension; G62.9 Polyneuropathy, unspecified
CPT/HCPCS: 11042; 36415; 73660; 80053; 85025; 85651; 86140; 87070; 87075; 87205; 99214

== ENCOUNTER → 2023-07-04 08:57 | Outpatient (CLI) | payer MEDICARE, SELFPAY ==
--- NOTE | 2023-07-04 08:59 | DI.MRI.S_ITS ---
PROCEDURE: MR FOOT LT WO/W CON INDICATIONS: Diabetic ulcer on left 3rd toe, x-ray possible osteo TECHNIQUE: Multiphasic, multisequence MRI of the forefoot was performed, before and after intravenous contrast administration. COMPARISON: [facility], CR, XR TOE LT MIN 2V, 06/27/2023, 11:04. [facility], MR, MR FOOT LT WO/W CON, 01/08/2018, 10:05. FINDINGS: Image quality: Excellent. Bones and joints: Severe degenerate change of the 1st metatarsal phalangeal joint with associated subchondral cystic changes. Severe degenerative changes of the 1st interphalangeal joint with extensive subchondral cystic changes and associated marrow edema. Mild degenerative changes of the 1st and 2nd tarsometatarsal joint with associated subchondral marrow edema. There is diffuse marrow edema of the 3rd distal phalanx, without confluent T1 hypointensity, representing reactive marrow edema. Soft tissues: Diffuse fatty atrophy of the muscle within the forefoot and midfoot. The visualized plantar fascia is unremarkable. Mild subcutaneous edema dorsal to the 2nd and 3rd metatarsal. No intermetatarsal bursitis. The Lisfranc ligament is intact. The flexor, TA and extensor tendons are unremarkable. No drainable fluid collection. IMPRESSION: 1. Reactive marrow edema of the 3rd distal phalanx. This appearance is significantly improved in comparison to prior exam in 2018. No definitive osteomyelitis in the left forefoot. 2. Degenerative changes as described above. Dictated by: Desirae Dietz M.D. on 07/04/2023 at 20:40 Approved by: Desirae Dietz M.D. on 07/04/2023 at 20:51
== END ==
PROVIDERS: PCP Family Medicine; Referring Provider Surgery; Visit Provider Surgery
DX: E11.621 Type 2 diabetes mellitus with foot ulcer (principal); L97.529 Non-pressure chronic ulcer of other part of left foot with unspecified severity
CPT/HCPCS: 73720; A9579

== ENCOUNTER → 2023-07-06 13:19 | Outpatient (CLI) | payer MEDICARE, SELFPAY | PROVIDERS: PCP Family Medicine; Referring Provider Family Medicine; Visit Provider Surgery | DX: E11.621 Type 2 diabetes mellitus with foot ulcer (principal); L97.522 Non-pressure chronic ulcer of other part of left foot with fat layer exposed; L84 Corns and callosities; L53.9 Erythematous condition, unspecified | CPT/HCPCS: 99212; 99213 ==

== ENCOUNTER → 2023-07-20 09:49 | Outpatient (CLI) | payer MEDICARE, SELFPAY | LOC: WC 09:51 | PROVIDERS: PCP Family Medicine; Referring Provider Family Medicine; Visit Provider Surgery | DX: E11.628 Type 2 diabetes mellitus with other skin complications (principal); E11.42 Type 2 diabetes mellitus with diabetic polyneuropathy; L84 Corns and callosities; R60.0 Localized edema | CPT/HCPCS: 99213 ==

== ENCOUNTER → 2023-08-03 09:28 | Outpatient (CLI) | payer MEDICARE, SELFPAY | PROVIDERS: PCP Family Medicine; Referring Provider Family Medicine; Visit Provider Surgery | DX: Z09 Encounter for follow-up examination after completed treatment for conditions other than malignant neoplasm (principal); Z86.31 Personal history of diabetic foot ulcer | CPT/HCPCS: 99211; 99213 ==

== ENCOUNTER 2023-12-04 22:02 | Emergency (ER) | payer MEDICARE, SELFPAY ==
[2023-12-04 22:09] VITALS: BP 221/103; PULSE 89; RESP 17; TEMP 36.9; O2SAT 97; BMI 35.9
[2023-12-04 22:11] VITALS: BP 185/70; PULSE 85; O2SAT 98
--- NOTE | 2023-12-04 22:18 | ED_ITS ---
HPI - Extremity Problem General Chief complaint: Extremity Problem,Nontraumatic Stated complaint: infection in rt foot Time Seen by Provider: 12/04/23 22:07 Source: patient Mode of arrival: Ambulatory History of Present Illness HPI Narrative: Patient is a 63-year-old male. Has a history of neuropathy. Has had multiple toes removed in his right foot. Has been out of state hunting for the past several days. About 3 days ago he started noticing redness and swelling to his right great toe. No pain. No fevers. Has not taken anything for his symptoms prior to arrival. Is ambulatory. Related Data Previous Rx's Medication Instructions Recorded allopurinol 300 mg tablet 300 mg PO QDAY #90 tabs 06/30/16 atenolol 100 mg tablet 100 mg PO QDAY #90 tabs 06/30/16 hydrochlorothiazide 12.5 mg capsule 12.5 mg PO QDAY #90 caps 06/30/16 lisinopril 20 mg tablet 20 mg PO QDAY #180 tabs 08/15/16 doxycycline hyclate 100 mg tablet 100 mg PO BID 10 days #20 tabs 12/04/23 doxycycline hyclate 100 mg tablet 100 mg PO BID 10 days #20 tabs 12/04/23 Allergies Allergy/AdvReac Type Severity Reaction Status Date / Time No Known Drug Allergies Allergy Verified 12/04/23 22:09 Review of Systems Constitutional Constitutional: Reports system reviewed and no additional complaints, except as documented Musculoskeletal Musculoskeletal: Reports system reviewed and no additional complaints, except as documented Integumentary/Breasts Skin/Breast: Reports system reviewed and no additional complaints, except as documented Neurologic Neurologic: Reports system reviewed and no additional complaints, except as documented Hematologic/Lymphatic Hematologic/Lymphatic: Reports system reviewed and no additional complaints, except as documented Patient History Medical History Neuropathic ulcer of foot Osteomyelitis Gout HTN (hypertension) HLD (hyperlipidemia) Surgical History (Updated 05/17/18 @ 12:42 by Marti Fonseca RN) Hx of colonoscopy Hx of hernia repair Hx of tympanostomy Social History household members: none Exam Initial Vital Signs Initial Vital Signs: Vital Signs Temperature 98.5 F 12/04/23 22:09 Pulse Rate 89 12/04/23 22:09 Respiratory Rate 17 10/21/24 22:09 Blood Pressure 221/103 H 12/04/23 22:09 Pulse Oximetry 97 12/04/23 22:09 Oxygen Delivery Method Room Air 12/04/23 22:09 [facility] Head: normal to inspection Resp Effort & Inspection: normal respiratory effort Cardio Pulses: dorsalis pedis present on the right Skin Other: Patient does have maceration in the medial aspect of his right great toe. There is some swelling and redness around the great toe and potentially some redness in the dorsum of his right foot. Neuro Other: Decreased sensation to light touch to the right great toe however this is baseline for him. Extrem Other: Swelling to the right great toe., patient missing the rest of his toes on his right foot Course Orders Ordered: Discontinued Medications Doxycycline Hyclate (Doxycycline Hyclate 100 Mg Tablet) 100 mg PO NOW ONE Stop: 12/04/23 22:20 Last Admin: 12/04/23 22:25 Dose: 100 mg Documented By: DAKOTA Vital Signs Vital signs: Vital Signs - 8 hr 12/04/23 22:09 12/04/23 22:11 12/04/23 22:19 Temperature 98.5 F Pulse Rate 89 85 Pulse Rate [Bilateral Dorsalis Pedis] 90 Respiratory Rate 17 Blood Pressure 221/103 H 185/70 H Pulse Oximetry 97 98 Oxygen Delivery Method Room Air 12/04/23 22:30 Temperature Pulse Rate 80 Pulse Rate [Bilateral Dorsalis Pedis] Respiratory Rate 16 Blood Pressure 160/77 H Pulse Oximetry 98 Oxygen Delivery Method Room Air MDM - Extremity (Nontraumatic) MDM Narrative Medical decision making narrative: Patient does have neuropathy and decreased sensation to his right foot but this is baseline. He does have some skin maceration to the medial aspect of his right great toe which is most consistent with spinning an extended amount of time in wet foot wear. There is some redness to this area. Given his history we will place him on antibiotics. He was otherwise nontoxic appearing. Is vascularly intact. Is afebrile. First dose of antibiotics given here in the ER and a prescription was sent to the pharmacy of his choice. A consult was placed for wound care. Recommended that he follow-up with [facility]. No indication for admission to the hospital today as he was not even tried outpatient antibiotics. I do not feel that labs would be helpful as we are going to treat him with antibiotics regardless of any lab results. Discharge Plan Departure Patient Disposition: Home Clinical Impression: Cellulitis Instructions: DI for Cellulitis -- Adult Activity Restrictions/Additional Instructions: Your information was sent to the wound care department here at [facility]. You can call [phone] for a follow-up appointment with them. I also recommend that you contact the Orthopedic Department in the number provided below as well. Antibiotics were sent to [facility] per your request. Contact your primary doctor for a follow-up. Return to the emergency department for new symptoms. Prescriptions: New doxycycline hyclate 100 mg tablet 100 mg PO BID 10 Days Qty: 20 0RF doxycycline hyclate 100 mg tablet 100 mg PO BID 10 Days Qty: 20 0RF No Action atenolol 100 MG tablet 100 mg PO QDAY Qty: 90 3RF hydrochlorothiazide 12.5 MG capsule 12.5 mg PO QDAY Qty: 90 3RF allopurinol 300 MG tablet 300 mg PO QDAY Qty: 90 3RF lisinopril 20 MG tablet 20 mg PO QDAY Qty: 180 1RF Referrals: Rosa Maria Dong MD [Physician] - Gustavo Lee MD [Primary Care Provider] - Stand Alone Forms: Patient Portal/API
[2023-12-04 22:19] VITALS: PULSE 90
[2023-12-04] MEDS: DOXYCYCLINE HYCLATE 100 MG TABLET PO (22:25)
[2023-12-04 22:30] VITALS: BP 160/77; PULSE 80; RESP 16; O2SAT 98
== END 2023-12-04 22:45 | disposition home or self-care (01) ==
PROVIDERS: Emergency Provider Emergency Medicine; PCP Family Medicine
DX: L03.031 Cellulitis of right toe (principal)
CPT/HCPCS: 99283

== ENCOUNTER → 2023-12-08 09:46 | Outpatient (CLI) | payer MEDICARE, SELFPAY | LOC: WC 09:54 | PROVIDERS: PCP Family Medicine; Referring Provider Emergency Medicine; Visit Provider Physician Assistant | DX: E11.621 Type 2 diabetes mellitus with foot ulcer (principal); E11.40 Type 2 diabetes mellitus with diabetic neuropathy, unspecified; L97.512 Non-pressure chronic ulcer of other part of right foot with fat layer exposed; L53.9 Erythematous condition, unspecified; R60.0 Localized edema | CPT/HCPCS: 11042; 87070; 87075; 87077; 87147; 87205; 99214 ==

== ENCOUNTER → 2023-12-19 08:47 | Outpatient (CLI) | payer MEDICARE, SELFPAY | LOC: WC 08:48 | PROVIDERS: PCP Family Medicine; Referring Provider Emergency Medicine; Visit Provider Surgery | DX: E11.621 Type 2 diabetes mellitus with foot ulcer (principal); L97.512 Non-pressure chronic ulcer of other part of right foot with fat layer exposed; R20.8 Other disturbances of skin sensation; E11.40 Type 2 diabetes mellitus with diabetic neuropathy, unspecified; R60.0 Localized edema; Z89.421 Acquired absence of other right toe(s) | CPT/HCPCS: 11042; 99213 ==

== ENCOUNTER → 2023-12-26 09:19 | Outpatient (CLI) | payer MEDICARE, SELFPAY | PROVIDERS: PCP Family Medicine; Referring Provider Emergency Medicine; Visit Provider Surgery | DX: E11.621 Type 2 diabetes mellitus with foot ulcer (principal); E11.40 Type 2 diabetes mellitus with diabetic neuropathy, unspecified; L97.512 Non-pressure chronic ulcer of other part of right foot with fat layer exposed; R60.0 Localized edema; L84 Corns and callosities | CPT/HCPCS: 11042; 87070; 87075; 87205 ==

== ENCOUNTER → 2024-01-02 10:26 | Outpatient (CLI) | payer MEDICARE, SELFPAY | PROVIDERS: PCP Family Medicine; Referring Provider Family Medicine; Visit Provider Surgery | DX: E11.628 Type 2 diabetes mellitus with other skin complications (principal); R60.0 Localized edema; L84 Corns and callosities | CPT/HCPCS: 99212; 99213 ==